=== PATIENT | male | born 1940 | race Caucasian/White ===

== ENCOUNTER → 2019-12-04 11:10 | Outpatient (CLI) | payer MEDICARE, OTHER, SELFPAY ==
--- NOTE | 2019-12-04 | DI.RAD.S_ITS ---
PROCEDURE: XR CHEST 2V INDICATIONS: COUGH TECHNIQUE: 2 views of the chest were acquired. COMPARISON: None. FINDINGS: Surgical changes and devices: None. Lungs and pleura: Lungs are clear. No pleural effusions or pneumothorax. Mediastinum: Mediastinal contours are normal. Heart size is normal. Bones and chest wall: No suspicious bony abnormalities. Soft tissues appear unremarkable. IMPRESSION: No acute disease Dictated by: Luc Villarreal M.D. on 12/04/2019 at 15:29 Approved by: Luc Villarreal M.D. on 12/04/2019 at 15:34
== END ==
PROVIDERS: Family Provider Family Medicine; PCP Family Medicine; Referring Provider Family Medicine; Visit Provider Family Medicine
DX: R05 Cough (principal)
CPT/HCPCS: 71046

== ENCOUNTER → 2020-09-02 12:25 | Outpatient (CLI) | payer MEDICARE, OTHER, SELFPAY ==
--- NOTE | 2020-09-02 12:29 | DI.US.S_ITS ---
PROCEDURE: US RENAL COMPLETE INDICATIONS: CHRONIC KIDNEY DISEASE TECHNIQUE: Real-time scanning was performed of the kidneys and bladder, with image documentation. COMPARISON: Outside Film, CT, CT ABDOMEN PELVIS WITHOUT CONTRAST, 04/08/2019, 17:42. FINDINGS: Kidneys: Kidneys are normal in size. Right kidney measures 11.3 cm long; left kidney measures 12 cm long. Right renal cortical thickness is 2.1 cm; left renal cortical thickness is 1.6 cm. Renal cortical echotexture is normal. No hydronephrosis. No suspicious solid mass lesions. There is a 6 mm nonobstructing right renal stone seen within the mid kidney anteriorly. The previously seen nonobstructing left-sided kidney stones are not seen on this ultrasound. Simple appearing left kidney cysts are seen inferiorly that measure up to 1.3 cm. Bladder: Evaluation of the bladder is limited by low volume. The patient voided just prior to this study. Miscellaneous: No free pelvic fluid. IMPRESSION: Normal kidney size, without hydronephrosis. Apparent nonobstructing right renal stone. However, no stone can be seen at this site on the prior outside noncontrast CT and differential diagnosis includes artifact. Left renal cysts are incidentally noted. Highly limited evaluation of the bladder. Dictated by: Benoit Calderon M.D. on 09/03/2020 at 11:45 Approved by: Benoit Calderon M.D. on 09/03/2020 at 11:47
== END ==
PROVIDERS: Family Provider Family Medicine; PCP Family Medicine; Referring Provider Student in an Organized Health Care Education/Training Program; Visit Provider Student in an Organized Health Care Education/Training Program
DX: N17.9 Acute kidney failure, unspecified (principal); N18.9 Chronic kidney disease, unspecified; N28.1 Cyst of kidney, acquired; Z87.442 Personal history of urinary calculi
CPT/HCPCS: 76770

== ENCOUNTER → 2021-02-15 08:26 | Outpatient (CLI) | payer MEDICARE, OTHER, SELFPAY ==
[2021-02-15 20:00] LABS: Bacteria Urine None Seen; WBC Urine None Seen (0-5/HPF)
[2021-02-15 20:13] LABS: Appearance Urine UA CLEAR; Bilirubin Urine UA NEGATIVE (NEGATIVE); Color Urine UA YELLOW; Glucose Urine UA 2+ g/dL (Negative); Ketones Urine UA NEGATIVE (NEGATIVE); Leukocyte Esterase Urine UA NEGATIVE (NEGATIVE); Nitrite Urine UA NEGATIVE (Negative); Occult Blood Urine UA TRACE-LYSED (Negative); Protein Urine UA NEGATIVE (Negative); Urobilinogen Urine UA 0.2 E.U./dL (0.2); pH Urine UA 5.5 (4.5-8.0)
[2021-02-15 20:33] LABS: Culture Indicated Urine Cult Not Indicated; RBC Urine 0-1/HPF (0-5/HPF)
== END ==
PROVIDERS: Family Provider Family Medicine; PCP Family Medicine; Visit Provider Physician Assistant
DX: R10.31 Right lower quadrant pain (principal); R31.9 Hematuria, unspecified; Z87.442 Personal history of urinary calculi
CPT/HCPCS: 81001

== ENCOUNTER → 2021-02-23 15:43 | Outpatient (CLI) | payer MEDICARE, OTHER, SELFPAY ==
--- NOTE | 2021-02-23 15:46 | DI.RAD.S_ITS ---
PROCEDURE: XR LUMBAR SPINE MIN 4V INDICATIONS: LBP and LE Symptoms TECHNIQUE: 5 views of the lumbar spine were acquired, including bilateral oblique views. COMPARISON: None. FINDINGS: Bones: 5 nonrib-bearing vertebrae are present. There is minimal retrolisthesis of L2 on L3. Degenerative endplate change throughout lumbar spine is seen more prominent at L4-5 and L5-S1 levels. No vertebral body compression fractures. No suspicious bony lesions. Soft tissues: Overlying bowel gas pattern is normal. No suspicious soft tissue calcifications. Oblique images: No pars defects. IMPRESSION: Minimal retrolisthesis of L2 on L3. No compression fracture. Degenerative disc disease throughout lumbar spine. No gross pars defect. Dictated by: Agustin Peng M.D. on 02/23/2021 at 16:30 Approved by: Agustin Peng M.D. on 02/23/2021 at 16:31
== END ==
PROVIDERS: Family Provider Family Medicine; PCP Physical Therapist; Referring Provider Physical Medicine & Rehabilitation; Visit Provider Physical Medicine & Rehabilitation
DX: M51.16 Intervertebral disc disorders with radiculopathy, lumbar region (principal); M51.17 Intervertebral disc disorders with radiculopathy, lumbosacral region
CPT/HCPCS: 72110

== ENCOUNTER → 2021-03-10 11:12 | Outpatient (CLI) | payer MEDICARE, OTHER, SELFPAY ==
[2021-03-10 19:59] LABS: Hematocrit 35.4 % (41-53); Hemoglobin 11.9 g/dL (13.5-17.5)
[2021-03-10 20:03] LABS: BUN Creatinine Ratio 29.9 (6-22); Blood Urea Nitrogen 38 mg/dL (9-20); Calcium 9.1 mg/dL (8.4-10.2); Carbon Dioxide 22 mmol/L (22-32); Chloride 102 mmol/L (98-107); Estimated Glomerular Filt Rate 54.8 mL/min (>60); Glucose 161 mg/dL (80-110); HEMOLYSIS < 15 (0-50); Potassium 4.5 mmol/L (3.4-5.1); Sodium 136 mmol/L (137-145)
[2021-03-10 20:14] LABS: Creatinine Urine Random 126.6 mg/dL; Protein (Total) Urine Random 12 mg/dL (0-12); Protein Creatinine Ratio Urine 0.09 GRAM/24H
[2021-03-12 06:29] LABS: Parathyroid Hormone Int 82 pg/mL (15-65)
== END ==
PROVIDERS: Family Provider Family Medicine; PCP Physical Therapist; Visit Provider Student in an Organized Health Care Education/Training Program
DX: R80.9 Proteinuria, unspecified (principal)
CPT/HCPCS: 80048; 82570; 83970; 84156; 85014; 85018

== ENCOUNTER → 2021-04-06 12:46 | Outpatient (CLI) | payer MEDICARE, OTHER, SELFPAY ==
--- NOTE | 2021-04-06 12:48 | DI.RAD.S_ITS ---
PROCEDURE: XR KNEE LT 3V INDICATIONS: Gait dysfunction status post left TKA TECHNIQUE: A total of 3 views of the knee were acquired. COMPARISON: None. FINDINGS: Bones: No fractures or dislocations. No suspicious bony lesions. Soft tissues: No joint effusion. No suspicious soft tissue calcifications. IMPRESSION: Normal alignment after left total knee arthroplasty. No evidence of device loosening or disruption, or joint effusion or loose body. Dictated by: Ky Carbajal M.D. on 04/06/2021 at 13:26 Approved by: Ky Carbajal M.D. on 04/06/2021 at 13:27
--- NOTE | 2021-04-06 12:48 | DI.RAD.S_ITS ---
PROCEDURE: XR KNEE RT 3V INDICATIONS: Knee DJD TECHNIQUE: 3 views of the knee were acquired. COMPARISON: None. FINDINGS: Bones: No fractures or dislocations. No suspicious bony lesions. There is joint space narrowing at the lateral compartment with mild valgus angulation at the knee joint. Moderate facet osteoarthritis at the lateral facet is seen at the patellofemoral joint. Soft tissues: No joint effusion. No suspicious soft tissue calcifications. IMPRESSION: Lateral compartment moderate knee joint osteoarthritis as indicated by joint space narrowing with secondary valgus angulation at the knee. Additional the degenerative osteoarthritic changes moderate at the lateral facet of the patellofemoral joint. Dictated by: Ky Carbajal M.D. on 04/06/2021 at 13:25 Approved by: Ky Carbajal M.D. on 04/06/2021 at 13:26
--- NOTE | 2021-04-06 13:27 | DI.US.S_ITS ---
PROCEDURE: US PERIPH VENOUS LOW EXTREM BI INDICATIONS: Lower extremity edema history of DVT TECHNIQUE: Real-time imaging, as well as color and pulse Doppler interrogation, were performed of the deep veins of both legs from the inguinal ligament to the popliteal fossa. COMPARISON: None. FINDINGS: Right: The common femoral, femoral and popliteal veins are normally compressible, and free of intraluminal thrombus. Color and pulse Doppler demonstrate normal phasic intravascular flow. There is normal augmentation response to distal compression maneuver. Left: The common femoral, femoral and popliteal veins are normally compressible, and free of intraluminal thrombus. Color and pulse Doppler demonstrate normal phasic intravascular flow. There is normal augmentation response to distal compression maneuver. IMPRESSION: No DVT found bilaterally. Dictated by: Ky Carbajal M.D. on 04/06/2021 at 15:16 Approved by: Ky Carbajal M.D. on 04/06/2021 at 15:16
== END ==
PROVIDERS: Family Provider Family Medicine; PCP Family Medicine; Referring Provider Physical Medicine & Rehabilitation; Visit Provider Physical Medicine & Rehabilitation
DX: M17.11 Unilateral primary osteoarthritis, right knee (principal); R26.9 Unspecified abnormalities of gait and mobility; R60.0 Localized edema; Z86.718 Personal history of other venous thrombosis and embolism; Z96.652 Presence of left artificial knee joint; M53.3 Sacrococcygeal disorders, not elsewhere classified; Z68.30 Body mass index [BMI] 30.0-30.9, adult
CPT/HCPCS: 73562; 93970; 99215

== ENCOUNTER → 2021-04-14 12:30 | Outpatient (CLI) | payer MEDICARE, OTHER, SELFPAY ==
--- NOTE | 2021-04-14 12:32 | DI.MRI.S_ITS ---
PROCEDURE: MR LUMBAR SPINE WO CON INDICATIONS: Lumbar radiculopathy TECHNIQUE: Noncontrast sagittal T1 spin echo and T2 fast echo, sagittal STIR, axial T1 and T2 fast spin echo through the lumbar spine. In cases with scoliosis, additional coronal T2 fast spin echo may be performed. COMPARISON: [facility], CR, XR LUMBAR SPINE MIN 4V, 02/23/2021, 15:49. [facility], MR, L-SPINE WITHOUT CONTRAST, 09/30/2012, 13:43. FINDINGS: Image quality: Excellent. Alignment and Curvature: There is mild, grade 1 retrolisthesis of L1 on L2, L2 on L3, and L3 on L4. Bone Marrow: Marrow is of normal overall signal. No acute vertebral body compression fractures. There is mild reactive signal within the endplates adjacent to the T12-L1, L1-L2, L2-L3, L3-L4, L4-L5, and L5-S1 intervertebral discs. Spinal Cord: Conus medullaris terminates at the mid L2 level. Visualized cord demonstrates normal signal and size. Paraspinous Soft Tissues: No paravertebral masses. T12-L1: Normal appearance. L1-L2: Mild disc desiccation. Mild diffuse disc bulge. Mild facet and ligamentum flavum hypertrophy. Mild canal stenosis. Mild bilateral foraminal stenosis. L2-L3: Moderate disc height loss and desiccation. Mild diffuse disc bulge with superimposed right posterolateral and paracentral protrusion. Mild facet and ligamentum flavum hypertrophy. Increased, moderate canal stenosis. Increased, mild to moderate right foraminal stenosis. No change in mild left foraminal stenosis. L3-L4: Moderate disc height loss and desiccation. Mild diffuse disc bulge with superimposed left far lateral protrusion. Mild facet and ligamentum flavum hypertrophy. Increased, moderate to severe canal stenosis. Increased, moderate to severe left and moderate right foraminal stenosis. New left L3 nerve root compression L4-L5: Moderate disc height loss and desiccation. Mild diffuse disc bulge. Mild facet and ligamentum flavum hypertrophy. Mild epidural lipomatosis. Mild canal stenosis. Increased, moderate left and mild right foraminal stenosis. L5-S1: Moderate disc height loss and desiccation. Mild diffuse disc bulge with superimposed right posterolateral and far lateral protrusion. Mild bilateral facet hypertrophy. Mild canal stenosis. Moderate left and moderate to severe right foraminal stenosis, increased from the prior examination. New mild right L5 nerve root compression. IMPRESSION: 1. Multilevel degenerative disc and facet disease, as well as ligamentum flavum hypertrophy and epidural lipomatosis. 2. Multilevel canal stenoses, worst at L3-L4 where there is increased, moderate to severe canal stenosis. Increased, moderate canal stenosis at L2-L3. 3. Multilevel foraminal stenoses, worst at L3-L4 and L5-S1 where there is associated intraforaminal nerve root compression. Recommend correlation with clinical symptoms to ascertain relevance of these findings. Dictated by: Marlo Barnes M.D. on 04/14/2021 at 14:46 Approved by: Marlo Barnes M.D. on 04/14/2021 at 14:50
== END ==
PROVIDERS: Family Provider Family Medicine; PCP Family Medicine; Referring Provider Physical Medicine & Rehabilitation; Visit Provider Physical Medicine & Rehabilitation
DX: M51.16 Intervertebral disc disorders with radiculopathy, lumbar region (principal); M51.17 Intervertebral disc disorders with radiculopathy, lumbosacral region; M48.061 Spinal stenosis, lumbar region without neurogenic claudication; M48.07 Spinal stenosis, lumbosacral region; E88.2 Lipomatosis, not elsewhere classified
CPT/HCPCS: 72148

== ENCOUNTER → 2021-06-07 11:13 | Outpatient (CLI) | payer MEDICARE, OTHER, SELFPAY ==
[2021-06-07 20:20] LABS: COVID19 - ORCAS (NP or Nasal) Negative (Negative)
== END ==
PROVIDERS: Family Provider Family Medicine; PCP Family Medicine; Visit Provider Physician Assistant
DX: Z01.812 Encounter for preprocedural laboratory examination (principal); Z20.822 Contact with and (suspected) exposure to COVID-19
CPT/HCPCS: C9803; U0003

== ENCOUNTER → 2021-06-09 13:40 | Outpatient (CLI) | payer MEDICARE, OTHER, SELFPAY ==
[2021-06-09] VITALS (9 sets, daily range): BP systolic 116–151; BP diastolic 53–67; PULSE 15–69; RESP 16–99; TEMP 36.4; O2SAT 98–100
--- NOTE | 2021-06-09 | DI.RAD.S_ITS ---
PROCEDURE: PAIN SI JOINT INJECTION INDICATIONS: right SI joint COMPARISON: [facility], XA, PAIN L/S TRANSFORAMINAL INJECT, 06/09/2021, 14:50. FINDINGS: Fluoroscopic spot filming was performed to verify placement of spinal needles at the left L5 level, as labeled on the films. Appropriate location of the needle tip was confirmed by injection of iodinated contrast. Please note that fluoroscopic images of the sacroiliac joints are included in the lumbar spine injection procedure performed at the same time (accession number [id number]). IMPRESSION: Included images show appropriate positioning of the spinal needle at the left L5 level. Images from sacroiliac joint injection are included on accession number [id number]. Dictated by: Jun Webster M.D. on 06/09/2021 at 16:41 Approved by: Jun Webster M.D. on 06/09/2021 at 16:52
[2021-06-09] MEDS: MIDAZOLAM 5 MG/5 ML VIAL IV (14:44)
[2021-06-09] MEDS: IOPAMIDOL 15 ML VIAL 3 ML INJ (14:51)
[2021-06-09] MEDS: BUPIVACAINE 0.25% (PF) VIAL 2 ML INJ (14:51)
[2021-06-09] MEDS: DEXAMETHASONE 10 MG/ML VIAL 20 MG INJ (14:51)
[2021-06-09] MEDS: BETAMETHASONE 30 MG/5 ML MDV 6 MG INJ (14:52)
--- NOTE | 2021-06-09 15:08 | P.PCN_ITS ---
Date/Time/Diagnoses Date of procedure: 06/09/21 Time of procedure: 15:08 Pre-procedure diagnosis: FORAMINAL STENOSIS WITH LE SYMPTOMS Post-procedure diagnosis: same Procedure Notes Procedure: 1. FLUOROSCOPICALLY GUIDED CONTRAST CONTROLLED TRANSFORAMINAL EPIDURAL STEROID INJECTION - RIGHT L5/S1 TFESI Indications: Ollie is referred by Dr. Chin for treatment of Foraminal Stenosis with Right LE Symptoms Physician: Ollie Minaya Total Fluoroscopy time (seconds): 13 Total sedation minutes: 14 Complications: none Procedure in detail & Post-procedure care: FINDINGS Foraminal Nerve Root Compression secondary to disc disease and facet hypertrophy DESCRIPTION OF PROCEDURE Following review of allergy and review of potential side effects and complications, including, but not necessarily limited to, infection, allergic reaction, local tissue breakdown, stroke, temporary or permanent nerve injury, paralysis, and possible , the patient indicated that the patient understood and agreed to proceed. An informed consent document was signed by the patient, witnessed by a nurse, and placed in the patient's chart. Additionally, other treatment options including medications, modalities, and physical therapy were reviewed with the patient. After review of previous anaesthesic history and IV conscious sedation the patient was deemed safe to proceed with today?s procedure with IV conscious sedation as ASA class II designation. Safety time-out was performed to confirm patient ID, procedure to be performed and site of procedure. IV sedation was accomplished with a combination of 2mg of Versed was administered by the RN after DO order, titrated to patient comfort during the course of the procedure while the patient remained responsive to all verbal commands In the prone position following sterile prep and drape of the lumbar region, the right L5/S1 posterior neuroforamen was identified fluoroscopically. The skin was anesthetized via a 25-gauge 1.5-inch needle with 1% lidocaine solution. At this point, a 25-gauge 3.5-inch spinal needle was atraumatically introduced and advanced under fluoroscopic guidance through the posterior right L5/S1 neuroforamen to approximately the anterior aspect of the canal. Depth was confirmed on lateral view. Following negative aspiration, injection of approximately 1.5cc of Isovue 200 under live fluoroscopy in the AP view confirmed excellent flow along the nerve root, into the epidural space without vascular or intrathecal uptake observed Radiological data, including multiple fluoroscopic views of the lumbosacral spine, reveal a spinal needle at the right L5/S1 posterior neuroforamen. Subsequent views show flow of contrast material flowing superiorly and inferiorly along the nerve root confirming epidural flow. Subsequently, a test dose of 1.5 cc of 1% lidocaine solution was administered and patient was observed for two minutes for signs or symptoms of complications, including abdominal pain, shortness of breath, bilateral upper or lower extremity weakness, nausea and vomiting, prior to steroid injection. At this point, a total of 3cc or 20mg of dexamethasone and 6mg of betamethasone was injected without incident. The procedure tolerated the procedure well without signs or symptoms of complications prior to transfer to the recovery area continued monitoring without incident. The patient was then transferred to the recovery area where t hey were observed for an appropriate time after the injection. The patient reported a VAS score of 7 prior to the procedure and a post- procedure VAS of 0. POST OP INSTRUCTIONS The patient was provided a Pain Log to continue to record their response to the target-specific procedure prior to follow-up visit with their referring physician. Additionally, specific post-injection care instructions and a contact number to our office were provided if concerns arise regarding possible complications associated with the procedure are suspected.
--- NOTE | 2021-06-09 15:09 | PM.PROC.IR.1 ---
Date/Time/Diagnoses Date of procedure: 06/09/21 Time of procedure: 15:09 Pre-procedure diagnosis: Sacroiliac joint pain/DJD Post-procedure diagnosis: same Procedure Notes Procedure: Fluoroscopically guided contrast controlled right sacroiliac joint injection Indications: Ollie is referred by Dr. Chin for treatment of right sacroiliac joint DJD Physician: Ollie Minaya Total Fluoroscopy time (seconds): 14 Total sedation minutes: 13 Complications: none Procedure in detail & Post-procedure care: DESCRIPTION OF PROCEDURE Fluoroscopically guided, contrast controlled right sacroiliac joint injection Following review of allergies and review of potential side effects and complications, including, but not necessarily limited to, infection, allergic reaction, local tissue breakdown, temporary as well as permanent nerve injury, paralysis, stroke and possible , the patient indicated that they understood and agreed to proceed. An informed consent was signed by the patient, witnessed by a nurse, and placed in the patient's chart. Additionally, other treatment options including modalities, medications, and physical therapy were reviewed with the patient. After review of previous anaesthesic history and IV conscious sedation the patient was deemed safe to proceed with today?s procedure with IV conscious sedation as ASA class II designation. Safety time-out was performed to confirm patient ID, procedure to be performed and site of procedure. IV sedation was accomplished with a combination of 2mg of Versed was administered by the RN after DO order, titrated to patient comfort during the course of the procedure while the patient remained responsive to all verbal commands In the prone position following sterile prep and drape of the pelvic region, the hyper lucency on in the inferior aspect of the sacroiliac joint was identified fluoroscopically the skin was anesthetized be a 25 gauge 1 eventual with approximately 2 cc of 1% lidocaine solution. At this point, a 22 gauge 3 in spinal needle was atraumatically introduced and advanced under fluoroscopic guidance into the inferior aspect of the right sacroiliac joint. Following negative aspiration, approximately 0.3cc of Isovue-300 was injected confirming intra-articular placement without vascular uptake. Radiographic data, including multiple fluoroscopic views of the pelvis, reveals a spinal needle in the sacroiliac joint hyper lucent zone. Subsequent view show flow contrast tear superiorly and inferiorly within the joint capsule without vascular intrathecal uptake. At this point a total of 1 of 0.5% Marcaine was combined with 1cc of 6 mg of betamethasone was injected without incident. The procedure tolerated the procedure well without signs or symptoms of complications prior to transfer to the recovery area continued monitoring without incident. The patient was then transferred to the recovery area with a bur observed for an appropriate time after the injection. The patient reverted a vas score of 7 prior to the procedure and post-procedure vas of 1. POSTOP INSTRUCTIONS The patient was provided with a pain like to continue to record the patient's response to the target specific procedure prior to the patient's follow-up visit with the referring physician. Additionally, specific post injection care instructions and a contact number to our office were provided if concerns arise regarding the possible complications associated with procedure are suspected.
--- NOTE | 2021-06-09 15:13 | DI.RAD.S_ITS ---
PROCEDURE: PAIN SI JOINT INJECTION INDICATIONS: Right SI joint injection COMPARISON: [facility], , PAIN SI JOINT INJECTION, 06/09/2021, 14:50. FINDINGS: Fluoroscopic spot filming was performed to verify placement of spinal needles at the inferior margin of the right sacroiliac joint level(s), as labeled on the films. Appropriate location(s) of the needle tip(s) was confirmed by injection of iodinated contrast. IMPRESSION: Access needle at the right SI joint. Dictated by: Talia Bolden MD, PhD on 06/09/2021 at 17:04 Approved by: Talia Bolden MD, PhD on 06/09/2021 at 17:07
== END ==
PROVIDERS: Family Provider Family Medicine; PCP Family Medicine; Referring Provider Family Medicine; Visit Provider Physical Medicine & Rehabilitation
DX: M53.3 Sacrococcygeal disorders, not elsewhere classified; M51.17 Intervertebral disc disorders with radiculopathy, lumbosacral region; M48.07 Spinal stenosis, lumbosacral region; M46.1 Sacroiliitis, not elsewhere classified
CPT/HCPCS: 27096; 64483; 99152; J0702; J1100; J2250; J3010

== ENCOUNTER → 2021-06-15 13:45 | Outpatient (CLI) | payer MEDICARE, OTHER, SELFPAY ==
[2021-06-15 20:01] LABS: Add Manual Diff / Slide Review NO; Basophils Absolute Auto 0 /uL (0-100); Basophils Percent Auto 0.2 % (0-2); Eosinophils Absolute Auto 200 /uL (0-450); Eosinophils Percent Auto 2.4 % (2-4); Hematocrit 34.9 % (41-53); Hemoglobin 11.9 g/dL (13.5-17.5); Lymphocytes Absolute Auto 2300 /uL (1100-4500); Mean Corpuscular HGB Conc 34.1 % (30-36); Mean Corpuscular Hemoglobin 32.2 PG (26-34); Mean Corpuscular Volume 94.5 fL (80-100); Monocytes Absolute Auto 700 /uL (0-900); Monocytes Percent Auto 7.1 % (3-14); Neutrophils Absolute Auto 7100 /uL (1500-7000); Neutrophils Percent Auto 68.3 % (50-75); Platelet Count 192 X10^3/uL (150-400); Red Blood Cell Count 3.69 X10^6/uL (4.5-5.9); Red Cell Distribution Width 14.3 % (11.6-14.8); White Blood Cell Count 10.4 X10^3/uL (4.5-11.0)
== END ==
PROVIDERS: Family Provider Family Medicine; PCP Family Medicine; Visit Provider Family Medicine
DX: D64.9 Anemia, unspecified (principal)
CPT/HCPCS: 85025

== ENCOUNTER → 2021-10-03 10:39 | Outpatient (CLI) | payer MEDICARE, OTHER, SELFPAY ==
[2021-10-03 19:30] LABS: Alanine Aminotransferase 30 IU/L (<50); Albumin 3.7 g/dL (3.5-5.0); Albumin Globulin Ratio 1.2 (1.0-2.8); Alkaline Phosphatase 85 U/L (38-126); Aspartate Aminotransferase 36 IU/L (17-59); BUN Creatinine Ratio 22.1 (6-22); Bilirubin Total 1.1 mg/dL (0.2-1.3); Blood Urea Nitrogen 25 mg/dL (9-20); Calcium 9.2 mg/dL (8.4-10.2); Carbon Dioxide 28 mmol/L (22-32); Chloride 103 mmol/L (98-107); Cholesterol 93 mg/dL (140-199); Estimated Glomerular Filt Rate > 60.0 mL/min (>60); Glucose 142 mg/dL (80-110); HDL Cholesterol 39 mg/dL (40-60); HEMOLYSIS < 15 (0-50); LDL Cholesterol Calculated 32 mg/dL (<100); Potassium 4.8 mmol/L (3.4-5.1); Sodium 136 mmol/L (137-145); Total Protein 6.7 g/dL (6.3-8.2); Triglycerides 112 mg/dL (35-150)
[2021-10-03 19:43] LABS: Hemoglobin A1C% w Est Avg Glu 5.9 % (4.0-6.0)
== END ==
PROVIDERS: Family Provider Family Medicine; PCP Family Medicine; Visit Provider Family Medicine
DX: E11.65 Type 2 diabetes mellitus with hyperglycemia (principal)
CPT/HCPCS: 80053; 80061; 83036

== ENCOUNTER → 2021-10-10 13:36 | Outpatient (CLI) | payer MEDICARE, OTHER, SELFPAY ==
[2021-10-10 19:51] LABS: Prostate Specific Antigen 1.78 ng/mL (0.10-4.00)
[2021-10-10 19:52] LABS: Hemoglobin A1C% w Est Avg Glu 5.9 % (4.0-6.0)
== END ==
PROVIDERS: Family Provider Family Medicine; PCP Family Medicine; Visit Provider Physician Assistant
DX: R31.29 Other microscopic hematuria (principal); E11.65 Type 2 diabetes mellitus with hyperglycemia; Z12.5 Encounter for screening for malignant neoplasm of prostate
CPT/HCPCS: 83036; 84153; G0103

== ENCOUNTER → 2021-12-15 12:35 | Outpatient (CLI) | payer MEDICARE, OTHER, SELFPAY ==
[2021-12-15 19:20] LABS: Add Manual Diff / Slide Review NO; Basophils Absolute Auto 0 /uL (0-100); Basophils Percent Auto 0.6 % (0-2); Eosinophils Absolute Auto 200 /uL (0-450); Eosinophils Percent Auto 2.9 % (2-4); Hematocrit 36.5 % (41-53); Hemoglobin 12.1 g/dL (13.5-17.5); Lymphocytes Absolute Auto 1300 /uL (1100-4500); Lymphocytes Percent Auto 20.3 % (25-40); Mean Corpuscular HGB Conc 33.1 % (30-36); Mean Corpuscular Hemoglobin 31.3 PG (26-34); Mean Corpuscular Volume 94.4 fL (80-100); Monocytes Absolute Auto 600 /uL (0-900); Monocytes Percent Auto 8.6 % (3-14); Neutrophils Absolute Auto 4500 /uL (1500-7000); Neutrophils Percent Auto 67.6 % (50-75); Platelet Count 186 X10^3/uL (150-400); Red Blood Cell Count 3.87 X10^6/uL (4.5-5.9); Red Cell Distribution Width 13.7 % (11.6-14.8); White Blood Cell Count 6.6 X10^3/uL (4.5-11.0)
[2021-12-15 19:48] LABS: Lactate (Lactic Acid) 1.9 mmol/L (0.7-2.1)
[2021-12-15 19:52] LABS: Alanine Aminotransferase 36 IU/L (<50); Albumin 4.2 g/dL (3.5-5.0); Albumin Globulin Ratio 1.4 (1.0-2.8); Alkaline Phosphatase 109 U/L (38-126); Aspartate Aminotransferase 38 IU/L (17-59); BUN Creatinine Ratio 25.9 (6-22); Bilirubin Total 0.9 mg/dL (0.2-1.3); Blood Urea Nitrogen 28 mg/dL (9-20); Calcium 9.1 mg/dL (8.4-10.2); Carbon Dioxide 30 mmol/L (22-32); Chloride 104 mmol/L (98-107); Estimated Glomerular Filt Rate > 60.0 mL/min (>60); Globulin 3.1 g/dL (1.7-4.1); Glucose 166 mg/dL (80-110); HEMOLYSIS < 15 (0-50); Potassium 4.4 mmol/L (3.4-5.1); Sodium 141 mmol/L (137-145); Total Protein 7.3 g/dL (6.3-8.2)
[2021-12-15 19:54] LABS: Hemoglobin A1C% w Est Avg Glu 6.5 % (4.0-6.0)
[2021-12-15 20:21] LABS: Prostate Specific Antigen Scrn 1.37 ng/mL (0.1-4.0)
[2021-12-15 20:40] LABS: Vitamin B12 624 pg/mL (239-931)
[2021-12-15 20:59] LABS: Erythrocyte Sedimentation Rate 35 MM/HR (0-15)
== END ==
PROVIDERS: Family Provider Family Medicine; PCP Family Medicine; Visit Provider Physician Assistant
DX: F32.1 Major depressive disorder, single episode, moderate (principal); E11.40 Type 2 diabetes mellitus with diabetic neuropathy, unspecified; Z12.5 Encounter for screening for malignant neoplasm of prostate; D64.9 Anemia, unspecified; E11.9 Type 2 diabetes mellitus without complications; N40.0 Benign prostatic hyperplasia without lower urinary tract symptoms; R15.9 Full incontinence of feces; Z79.899 Other long term (current) drug therapy
CPT/HCPCS: 80053; 82607; 83036; 83605; 85025; 85651; G0103

== ENCOUNTER → 2021-12-30 14:48 | Outpatient (CLI) | payer MEDICARE, OTHER, SELFPAY ==
[2022-01-04 10:51] LABS: Fecal Immunochemical Test Negative (Negative)
== END ==
PROVIDERS: Family Provider Family Medicine; PCP Family Medicine; Visit Provider Physician Assistant
DX: D64.9 Anemia, unspecified (principal); R15.9 Full incontinence of feces; R19.7 Diarrhea, unspecified
CPT/HCPCS: 82274

== ENCOUNTER → 2022-01-03 08:07 | Outpatient (CLI) | payer MEDICARE, OTHER, SELFPAY ==
[2022-01-03 19:39] LABS: COVID19 - ORCAS (NP or Nasal) Negative (Negative)
== END ==
PROVIDERS: Family Provider Family Medicine; PCP Family Medicine; Visit Provider Family Medicine
DX: Z20.822 Contact with and (suspected) exposure to COVID-19 (principal)
CPT/HCPCS: C9803; U0003

== ENCOUNTER 2022-01-05 12:11 | Outpatient (CLI) | payer MEDICARE, OTHER, SELFPAY ==
--- NOTE | 2022-01-05 12:53 | DI.RAD.S_ITS ---
PROCEDURE: PAIN L/SI FACET INJ/BLK 1STL INDICATIONS: Spondylosis COMPARISON: [facility], , PAIN L/S TRANSFORAMINAL INJECT, 06/09/2021, 14:50. FINDINGS: Fluoroscopic spot filming was performed to verify placement of spinal needles at the L4-L5 and L5-S1 levels, as labeled on the films. Appropriate location(s) of the needle tip(s) was confirmed by injection of iodinated contrast. IMPRESSION: Intraprocedural examination within normal limits. Dictated by: Benoit Calderon M.D. on 01/05/2022 at 12:47 Approved by: Benoit Calderon M.D. on 01/05/2022 at 12:47
[2022-01-05 12:55] VITALS: BP 137/63; PULSE 56; RESP 18; TEMP 37; O2SAT 98
[2022-01-05 13:15] VITALS: BP 136/61; PULSE 55; RESP 16; O2SAT 99
[2022-01-05 13:20] VITALS: BP 124/59; PULSE 54; RESP 18; O2SAT 99
[2022-01-05] MEDS: BUPIVACAINE 0.5% (PF) VIAL 30 ML (13:24)
[2022-01-05] MEDS: LIDOCAINE 1% 20 ML (13:25)
[2022-01-05] MEDS: BETAMETHASONE 30 MG/5 ML MDV (13:26)
[2022-01-05] MEDS: IOPAMIDOL 15 ML VIAL INJ (13:26)
[2022-01-05 13:27] VITALS: BP 131/57; PULSE 55; RESP 16; O2SAT 99
--- NOTE | 2022-01-05 13:29 | P.PCN_ITS ---
Date/Time/Diagnoses Date of procedure: 01/05/22 Time of procedure: 13:29 Pre-procedure diagnosis: 1. FACET ARTHROPATHY, 2. AXIAL LBP, 3. MULTILEVEL DDD Post-procedure diagnosis: same Procedure Notes Procedure: 1. FLUOROSCOPICALLY GUIDED CONTRAST CONTROLLED FACET JOINT INJECTIONS RIGHT L4/5, L5/S1 Indications: Ollie is referred by Dr. Chin for treatment of Axial LBP Physician: Ollie Minaya Total Fluoroscopy time (seconds): 6 Total sedation minutes: 0 Complications: none Procedure in detail & Post-procedure care: FINDINGS Multilevel Facet Arthropathy with Clinically significant axial LBP DESCRIPTION OF PROCEDURE Fluoroscopically guided, contrast-controlled right L4/5, L5/S1 facet joint injections. Following review of allergy and review of potential side effects and complications, including, but not necessarily limited to, infection, allergic reaction, local tissue breakdown, stroke, temporary or permanent nerve injury, paralysis, and possible , the patient indicated that the patient understood and agreed to proceed. An informed consent document was signed by the patient, witnessed by a nurse, and placed in the patient's chart. Additionally, other treatment options including medications, modalities, and physical therapy were reviewed with the patient. After review of previous anaesthesic history and IV conscious sedation the patient was deemed safe to proceed with today?s procedure with IV conscious sedation as ASA class II designation. Safety time-out was performed to confirm patient ID, procedure to be performed and site of procedure. IV sedation was deemed unecessary and thus not administered by the RN after DO order, titrated to patient comfort during the course of the procedure while the patient remained responsive to all verbal commands. In the prone position, following sterile prep and drape of the lumbar region, the posterior aspect of the right L4/5, L5/S1 facet joints were identified fluoroscopically. The skin was anesthetized via a 25-gauge 1.5-inch needle with 1% lidocaine solution into the corresponding facet joints. At this point, a 22- gauge 3.5-inch spinal needle was atraumatically introduced and advanced under fluoroscopic guidance into the corresponding facet joints. Following negative aspiration, injections of approximately 0.2-cc of Isovue 200 confirmed interarticular placement without vascular uptake. Radiological data, including multiple fluoroscopic views of the lumbosacral spine, reveal a spinal needle at the right L4/5, L5/S1 facet joints. Subsequent views show flow of contrast material both superiorly and inferiorly within the joint space without vascular or intrathecal uptake. At this point, a total of 0.5cc including a mixture of 0.25cc Marcaine and 0.25cc betamethasone was injected without complication into each of the corresponding facet joints. The procedure tolerated the procedure well without signs or symptoms of complications prior to transfer to the recovery area continued monitoring without incident. The patient was then transferred to the recovery area where they were observed for an appropriate period of time after the injection. The patient reported a VAS score of 7 prior to the procedure and a post-procedure VAS of 0. POST OP INSTRUCTIONS The patient was provided a Pain Log to continue to record their response to the target-specific procedure prior to follow-up visit with their referring physician. Additionally, specific post-injection care instructions and a contact number to our office were provided if concerns arise regarding possible complications associated with the procedure are suspected.
[2022-01-05 13:30] VITALS: BP 99/51; PULSE 55; RESP 14; O2SAT 98
[2022-01-05 13:35] VITALS: BP 126/60; PULSE 57; RESP 16; O2SAT 98
== END 2022-01-05 13:45 | disposition home or self-care (01) ==
LOC: RAD 12:12
PROVIDERS: Family Provider Family Medicine; PCP Family Medicine; Referring Provider Physical Medicine & Rehabilitation; Visit Provider Physical Medicine & Rehabilitation
DX: M47.816 Spondylosis without myelopathy or radiculopathy, lumbar region (principal); M47.817 Spondylosis without myelopathy or radiculopathy, lumbosacral region; M51.36 Other intervertebral disc degeneration, lumbar region; M51.37 Other intervertebral disc degeneration, lumbosacral region
CPT/HCPCS: 64493; 64495; J0702; J2250; J3010

== ENCOUNTER → 2022-02-13 10:18 | Outpatient (CLI) | payer MEDICARE, OTHER, SELFPAY ==
[2022-02-14 16:11] LABS: C difficie Toxins A and B, EIA Negative (Negative)
[2022-02-15 15:40] LABS: Calprotectin, Stool 32 ug/g (0-120)
[2022-02-17 13:10] LABS: Pancreatic Elastase, Fecal 144 (>200)
== END ==
PROVIDERS: Family Provider Family Medicine; PCP Family Medicine; Visit Provider Physician Assistant
DX: R19.7 Diarrhea, unspecified (principal); Z79.01 Long term (current) use of anticoagulants
CPT/HCPCS: 82656; 83993; 87045; 87324; 87899

== ENCOUNTER → 2022-02-21 07:51 | Outpatient (CLI) | payer MEDICARE, OTHER, SELFPAY ==
[2022-02-21 19:56] LABS: COVID19 - ORCAS (NP or Nasal) Negative (Negative)
== END ==
PROVIDERS: Family Provider Family Medicine; PCP Family Medicine; Visit Provider Physician Assistant
DX: Z79.899 Other long term (current) drug therapy (principal)
CPT/HCPCS: C9803; U0003

== ENCOUNTER 2022-02-23 12:20 | Outpatient (CLI) | payer MEDICARE, OTHER, SELFPAY ==
[2022-02-23 12:30] VITALS: BP 131/61; PULSE 57; RESP 20; TEMP 36.4; O2SAT 99
--- NOTE | 2022-02-23 13:00 | DI.RAD.S_ITS ---
PROCEDURE: PAIN L/SI FACET INJ/BLK 1STL INDICATIONS: SPONDYLOSIS COMPARISON: [facility], , PAIN L/SI FACET INJ/BLK 1STL, 01/05/2022, 13:22. FINDINGS: Fluoroscopic spot filming was performed to verify placement of spinal needles on the right at the L4, L5, and S1 levels, as labeled on the films. Appropriate location of the needle tips was confirmed by injection of iodinated contrast. IMPRESSION: Intraprocedural examination demonstrating appropriate positions of the needles. Dictated by: Benoit Calderon M.D. on 02/23/2022 at 13:22 Approved by: Benoit Calderon M.D. on 02/23/2022 at 13:22
[2022-02-23 13:30] VITALS: BP 182/85; PULSE 56; RESP 17; O2SAT 100
[2022-02-23 13:35] VITALS: BP 182/85; PULSE 58; RESP 16; O2SAT 100
[2022-02-23] MEDS: IOPAMIDOL 15 ML VIAL 3 ML INJ (13:35)
[2022-02-23] MEDS: BUPIVACAINE 0.5% (PF) VIAL 5 ML INJ (13:35)
[2022-02-23 13:40] VITALS: BP 180/75; PULSE 55; RESP 20; O2SAT 100
--- NOTE | 2022-02-23 13:45 | P.PCN_ITS ---
Date/Time/Diagnoses Date of procedure: 02/23/22 Time of procedure: 13:45 Pre-procedure diagnosis: 1. FACET ARTHROPATHY Post-procedure diagnosis: same Procedure Notes Procedure: 1. Right L4, L5 and S1 MB BLOCKS LA Indications: Ollie is referred by Dr. Chin for treatment of Right Axial LBP. Physician: Ollie Minaya Total Fluoroscopy time (seconds): 7 Total sedation minutes: 0 Complications: none Procedure in detail & Post-procedure care: DESCRIPTION OF PROCEDURE Fluoroscopically guided, contrast-controlled right L4, L5 and S1 medial branch blocks with 0.5cc of 0.5% Marcaine. Following review of allergy and review of potential side effects and complications, including, but not necessarily limited to, infection, allergic reaction, local tissue breakdown, nerve injury, paralysis, stroke and possible , the patient indicated that the patient understood and agreed to proceed. An informed consent document was signed by the patient, witnessed by a nurse, and placed in the patient's chart. After review of previous anaesthesic history and IV conscious sedation the patient was deemed safe to proceed with today?s procedure with IV conscious sedation as ASA class II designation. Safety time-out was performed to confirm patient ID, procedure to be performed and site of procedure. IV sedation was deemed unnecessary and thus not administered by the RN after DO order, titrated to patient comfort during the course of the procedure while the patient remained responsive to all verbal commands In the prone position, following sterile prep and drape of the lumbar region, the right L4, L5 and S1 anatomical location of the medial branch of the dorsal ramus was identified fluoroscopically. Subsequently an anesthetic skin wheal using 1% lidocaine solution was initiated at each of the anatomical spots. Subsequently then a 22-gauge 3.5-inch spinal needle was atraumatically introduced and advanced under fluoroscopic guidance at each of the corresponding sites at the right L4, L5 and S1 MB. After negative aspiration, 0.2 cc of Isovue 200 was injected, confirming placement without vascular or intrathecal uptake. Subsequently then 0.5 cc of 0.5% Marcaine solution was injected at each of the corresponding sites at the right L4, L5 and S1 medial branch locations. The patient tolerated the procedure well without signs or symptoms of complications. The procedure tolerated the procedure well without signs or symptoms of complications prior to transfer to the recovery area continued monitoring without incident. Post-procedure, the patient was monitored initiating provocative activities to measure the amount of relief from block of the facetogenic pain. The patient reported a VAS of 7 prior to the procedure and a post-procedure VAS of 1. It has been a pleasure to assist in the diagnostic and therapeutic care of your patient. POST OP INSTRUCTIONS The patient was provided with a Pain Log to complete over the next several hours and subsequent days prior to the patient's follow up with the ordering physician. If the patient has federal mediation commissioner relief to the solution applied, then they may be a candidate for medial branch rhizotomy. The patient is aware, was provided, once again, with a Pain Log and will follow up with the referring physician for review and clinical correlation.
[2022-02-23 13:48] VITALS: BP 146/65; PULSE 51; RESP 12; O2SAT 99
[2022-02-23 13:53] VITALS: BP 162/74; PULSE 54; RESP 14; O2SAT 100
== END 2022-02-23 14:02 | disposition home or self-care (01) ==
PROVIDERS: Family Provider Family Medicine; PCP Family Medicine; Referring Provider Physical Medicine & Rehabilitation; Visit Provider Physical Medicine & Rehabilitation
DX: M47.816 Spondylosis without myelopathy or radiculopathy, lumbar region (principal); M47.817 Spondylosis without myelopathy or radiculopathy, lumbosacral region
CPT/HCPCS: 64493; 64494

== ENCOUNTER → 2022-03-02 11:39 | Outpatient (CLI) | payer MEDICARE, OTHER, SELFPAY ==
[2022-03-02 19:01] LABS: BUN Creatinine Ratio 21.4 (6-22); Blood Urea Nitrogen 24 mg/dL (9-20); Estimated Glomerular Filt Rate > 60 mL/min (>60)
== END ==
PROVIDERS: Family Provider Family Medicine; PCP Family Medicine
DX: R19.7 Diarrhea, unspecified (principal)
CPT/HCPCS: 82565; 84520

== ENCOUNTER → 2022-03-06 07:07 | Outpatient (CLI) | payer MEDICARE, OTHER, SELFPAY ==
[2022-03-06 20:57] LABS: COVID19 - ORCAS (NP or Nasal) Negative (Negative)
== END ==
PROVIDERS: Family Provider Family Medicine; PCP Family Medicine; Visit Provider Family Medicine
DX: Z20.822 Contact with and (suspected) exposure to COVID-19 (principal); Z01.812 Encounter for preprocedural laboratory examination
CPT/HCPCS: C9803; U0003

== ENCOUNTER 2022-03-07 10:45 | Outpatient (CLI) | payer MEDICARE, OTHER, SELFPAY ==
[2022-03-07] VITALS (9 sets, daily range): BP systolic 116–152; BP diastolic 54–84; PULSE 54–64; RESP 15–19; O2SAT 95–100
--- NOTE | 2022-03-07 | DI.CT.S_ITS ---
PROCEDURE: CT ABDOMEN PELVIS W CON INDICATIONS: Diarrhea, unspecified TECHNIQUE: After the administration of oral and IV contrast, axial sections were acquired from the lung bases to the pubic symphysis. Coronal and sagittal reformats were performed. For radiation dose reduction, the following was used: automated exposure control, adjustment of mA and/or kV according to patient size. COMPARISON: [facility], MR, L-SPINE WITHOUT CONTRAST, 09/30/2012, 13:43. [facility], MR, MR LUMBAR SPINE WO CON, 04/14/2021, 12:55. [facility], US, US RENAL COMPLETE, 09/02/2020, 12:54. FINDINGS: Image quality: Excellent. Lung bases: Clear lung bases. No hiatal hernia. Heart: Normal size heart. Heavy coronary artery calcification, mitral annular calcification, and aortic valvular calcification. ABDOMEN: Liver: No masses Gallbladder: Normal wall thickness. Biliary ducts: Nondilated. Pancreas: Normal. Spleen: Normal size. Adrenal Glands: No nodules. Kidneys and Ureters: Normal enhancement. No hydronephrosis or hydroureter. No calcifications. Indeterminate corticomedullary partially exophytic anterior lower pole renal cyst measuring 1.5 cm. . Stomach and Bowel: Stomach is within normal limits. 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 Small bowel loops have an otherwise normal appearance. There is normal appendix. Normal quantity of solid stool present in the colon. No pericolonic inflammation or wall thickening. Peritoneum: No abnormal intraperitoneal fluid. No free air. Ventral Wall: No hernia. Abdominal Nodes: No retroperitoneal or mesenteric adenopathy by size criteria. Vessels: Aorta and inferior vena cava are normal in size. Mild abdominal aortic atherosclerotic calcification. PELVIS: Pelvic Organs: Moderately enlarged prostate gland with median lobe hypertrophy. Bladder: No wall thickening. Pelvic Nodes: No enlarged lymph nodes. Miscellaneous: Tiny fat containing right inguinal hernia. Bones: Degenerative disc height loss in the lumbar spine. IMPRESSION: 1. Other than a prominent duodenal diverticulum, small bowel and colon loops appear normal. 2. Prostatomegaly. 3. Indeterminate corticomedullary left lower pole cyst has been stable since 09/30/12 and is benign. Dictated by: Audrey Monroe M.D. on 03/07/2022 at 17:35 Approved by: Audrey Monroe M.D. on 03/07/2022 at 17:52
--- NOTE | 2022-03-07 10:49 | DI.RAD.S_ITS ---
PROCEDURE: PAIN L/S MED/LAT N RFA INDICATIONS: SPONDYLOSIS COMPARISON: [facility], XA, PAIN L/SI FACET INJ/BLK 1STL, 02/23/2022, 13:34. [facility], XA, PAIN L/SI FACET INJ/BLK 1STL, 01/05/2022, 13:22. [facility], XA, PAIN L/S TRANSFORAMINAL INJECT, 06/09/2021, 14:50. FINDINGS: Fluoroscopic spot filming was performed to verify placement of spinal needles on on the right at the L4, L5, and S1 levels, as labeled on the films. IMPRESSION: Images during rhizotomy within normal limits. Dictated by: Benoit Calderon M.D. on 03/07/2022 at 11:48 Approved by: Benoit Calderon M.D. on 03/07/2022 at 11:48
[2022-03-07] MEDS: MIDAZOLAM 2 MG/2 ML VIAL IV (11:55)
[2022-03-07] MEDS: BUPIVACAINE 0.5% (PF) VIAL 5 ML INJ (11:58)
[2022-03-07] MEDS: LIDOCAINE 1% 20 ML (11:58)
--- NOTE | 2022-03-07 12:17 | P.PCN_ITS ---
Date/Time/Diagnoses Date of procedure: 03/07/22 Time of procedure: 12:17 Pre-procedure diagnosis: 1. RECALCITRANT FACET ARTHROPATHY Post-procedure diagnosis: same Procedure Notes Procedure: 1. RIGHT L4 AND L5 MEDIAL BRANCH RADIOFREQUENCY NEUROTOMY AND RIGHT S1 DORSAL RAMUS BRANCH RADIOFREQUENCY NEUROTOMY Indications: Demetra is referred by Dr. Chin for treatment of facet arthropathy. Physician: Ollie Minaya Total Fluoroscopy time (seconds): 10 Total sedation minutes: 17 Complications: none Procedure in detail & Post-procedure care: DESCRIPTION OF PROCEDURE Right L4 and L5 medial branch radiofrequency neurotomy and right S1 dorsal ramus branch radiofrequency neurotomy under fluoroscopy with conscious sedation. The patient is well known to this clinic having undergone previous facet injections with good but temporary relief. The patient has experienced appropriate, concordant relief with previous facet and median branch blocks but the patient's pain has been recalcitrant to further conservative measures. Therefore, based upon the patient's relief and persistent symptoms, the patient is considered an appropriate candidate for facet rhizotomy. All of the patient's questions regarding the risks versus benefits of the procedure, including, but not limited to, bleeding, infection, temporary as well as lasting nerve injury, paralysis, stroke, and , as well treatment alternatives were answered to satisfaction. After review of previous anaesthesic history and IV conscious sedation the patient was deemed safe to proceed with today?s procedure with IV conscious sedation as ASA class II designation. Safety time-out was performed to confirm patient ID, procedure to be performed and site of procedure. IV sedation was accomplished with a combination of 2mg of Versed was administered by the RN after DO order, titrated to patient comfort during the course of the procedure while the patient remained responsive to all verbal commands. After obtaining informed consent, denial of pertinent drug allergies, as well as being made aware of the potential risks of bleeding, infection, spinal cord trauma, paralysis, temporary and permanent nerve damage, seizure, stroke, and possible , the patient was brought to the fluoroscopy suite and positioned prone on the fluoroscopy table. The lumbar region was prepped with Betadine and covered with a fenestrated drape in the usual sterile fashion. Appropriate monitors applied including pulse oximeter, pulse, and blood pressure for regular monitoring throughout the procedure. After local infiltration using 1% lidocaine, under fluoroscopic guidance, a 10- cm RF insulated needle with a 10-mm active tip was positioned parallel to the junction of the right sacral ala and the superior articulating process where the S1 dorsal ramus resides. Needle placement was confirmed with sensory stimulation at 50 Hz, with motor stimulation of .5v on the right which produced local stimulation without radicular component. The stimulation was then increased to 2v with, once again, only local multifidus stimulation without radicular component. This was then followed by two discreet lesions performed at 80 degrees Celsius for 90 seconds each. The needle was then removed and the identical procedure was performed along the length of the right L5 medial branch with motor stimulation at .7v on the right. The identical procedure was once again performed along the length of the right L4 medial branch with motor stimulation of .5v on the right. The patient tolerated the procedure well without signs or symptoms of complications prior to transfer to the recovery area continued monitoring without incident. The patient was then transferred to the recovery area where they were observed for an appropriate period of time after the injection. The patient was then transferred to the recovery area where they were observed for an appropriate period of time after the injection. The patient reported a VAS score of 8 prior to the procedure and a post- procedure VAS of 1. POST OP INSTRUCTIONS The patient was provided a Pain Log to continue to record the patient's response to the target-specific procedure prior to the patient's follow-up visit with the referring physician. Additionally, specific post-injection care instructions and a contact number to our office were provided if concerns arise regarding possible complications associated with the procedure are suspected.
== END 2022-03-07 12:36 | disposition home or self-care (01) ==
LOC: RAD 10:46
PROVIDERS: Family Provider Family Medicine; PCP Family Medicine; Referring Provider Physician Assistant; Visit Provider Physician Assistant
DX: M47.816 Spondylosis without myelopathy or radiculopathy, lumbar region (principal); M47.817 Spondylosis without myelopathy or radiculopathy, lumbosacral region; R19.7 Diarrhea, unspecified; K57.10 Diverticulosis of small intestine without perforation or abscess without bleeding; I70.0 Atherosclerosis of aorta; N40.0 Benign prostatic hyperplasia without lower urinary tract symptoms; N28.1 Cyst of kidney, acquired
CPT/HCPCS: 64635; 64636; 74177; 99152; J2250; Q9967

== ENCOUNTER → 2022-03-13 13:07 | Outpatient (CLI) | payer MEDICARE, OTHER, SELFPAY ==
[2022-03-13 19:25] LABS: Alanine Aminotransferase 21 IU/L (<50); Albumin 4.3 g/dL (3.5-5.0); Albumin Globulin Ratio 1.5 (1.0-2.8); Alkaline Phosphatase 94 U/L (38-126); Aspartate Aminotransferase 25 IU/L (17-59); BUN Creatinine Ratio 26.9 (6-22); Bilirubin Total 1.2 mg/dL (0.2-1.3); Blood Urea Nitrogen 28 mg/dL (9-20); Calcium 9.4 mg/dL (8.4-10.2); Carbon Dioxide 25 mmol/L (22-32); Chloride 104 mmol/L (98-107); Estimated Glomerular Filt Rate > 60 mL/min (>60); Globulin 2.9 g/dL (1.7-4.1); Glucose 123 mg/dL (80-110); HEMOLYSIS < 15 (0-50); Potassium 4.5 mmol/L (3.4-5.1); Sodium 139 mmol/L (137-145); Total Protein 7.2 g/dL (6.3-8.2)
== END ==
PROVIDERS: Family Provider Family Medicine; PCP Family Medicine; Visit Provider Physician Assistant
DX: Z79.899 Other long term (current) drug therapy (principal)
CPT/HCPCS: 80053

== ENCOUNTER → 2022-06-05 14:41 | Outpatient (CLI) | payer MEDICARE, OTHER, SELFPAY ==
[2022-06-05 21:03] LABS: Hematocrit 36.7 % (41-53); Hemoglobin 12.3 g/dL (13.5-17.5)
[2022-06-05 21:22] LABS: BUN Creatinine Ratio 27.3 (6-22); Blood Urea Nitrogen 30 mg/dL (9-20); Calcium 8.8 mg/dL (8.4-10.2); Carbon Dioxide 24 mmol/L (22-32); Chloride 105 mmol/L (98-107); Estimated Glomerular Filt Rate > 60 mL/min (>60); Glucose 104 mg/dL (80-110); HEMOLYSIS < 15 (0-50); Potassium 4.9 mmol/L (3.4-5.1); Sodium 140 mmol/L (137-145)
[2022-06-05 21:26] LABS: Creatinine Urine Random 248.1 mg/dL; Protein (Total) Urine Random 11 mg/dL (0-12); Protein Creatinine Ratio Urine 0.04 GRAM/24H
[2022-06-07 07:10] LABS: Parathyroid Hormone Int 70 pg/mL (15-65)
== END ==
PROVIDERS: Family Provider Family Medicine; PCP Family Medicine; Visit Provider Student in an Organized Health Care Education/Training Program
DX: D64.9 Anemia, unspecified (principal); N05.9 Unspecified nephritic syndrome with unspecified morphologic changes; N25.81 Secondary hyperparathyroidism of renal origin; R80.9 Proteinuria, unspecified
CPT/HCPCS: 80048; 82570; 83970; 84156; 85014; 85018

== ENCOUNTER 2022-06-13 14:11 | Emergency (ER) | payer MEDICARE, OTHER, SELFPAY ==
[2022-06-13] VITALS (29 sets, daily range): BP systolic 92–189; BP diastolic 44–116; PULSE 57–97; RESP 12–25; TEMP 37.6–38.6; O2SAT 92–99; BMI 30.2
--- NOTE | 2022-06-13 14:26 | DI.RAD.S_ITS ---
PROCEDURE: XR CHEST 1V INDICATIONS: chest pain TECHNIQUE: One view of the chest was acquired. COMPARISON: [facility], , XR CHEST 2V, 12/04/2019, 11:25. FINDINGS: Surgical changes and devices: None. Lungs and pleura: Lungs are clear. No pleural effusions or pneumothorax. Mediastinum: Mediastinal contours appear normal. Heart size is normal. Bones and chest wall: No suspicious bony lesions. Overlying soft tissues appear unremarkable. IMPRESSION: No acute cardiopulmonary findings Approved by: Patrick Hammond M.D. on 06/13/2022 at 14:28
[2022-06-13 14:48] LABS: Add Manual Diff / Slide Review NO; Basophils Absolute Auto 0 /uL (0-100); Basophils Percent Auto 0.2 % (0-2); Eosinophils Absolute Auto 0 /uL (0-450); Eosinophils Percent Auto 0.3 % (2-4); Hematocrit 34.9 % (41-53); Hemoglobin 12.1 g/dL (13.5-17.5); Lymphocytes Absolute Auto 600 /uL (1100-4500); Lymphocytes Percent Auto 3.9 % (25-40); Mean Corpuscular HGB Conc 34.6 % (30-36); Mean Corpuscular Hemoglobin 31.7 PG (26-34); Mean Corpuscular Volume 91.5 fL (80-100); Monocytes Absolute Auto 700 /uL (0-900); Monocytes Percent Auto 4.7 % (3-14); Neutrophils Absolute Auto 14000 /uL (1500-7000); Neutrophils Percent Auto 90.9 % (50-75); Platelet Count 153 X10^3/uL (150-400); Red Blood Cell Count 3.82 X10^6/uL (4.5-5.9); Red Cell Distribution Width 13.8 % (11.6-14.8); White Blood Cell Count 15.4 X10^3/uL (4.5-11.0)
[2022-06-13 14:56] LABS: INR 1.4 (0.9-1.3); Prothrombin Time 16.4 SECONDS (10.1-12.7)
[2022-06-13 14:59] LABS: PTT Partial Thromboplastin Tim 36 SECONDS (26-36)
[2022-06-13 15:00] LABS: Alanine Aminotransferase 21 IU/L (<50); Albumin 4.3 g/dL (3.5-5.0); Albumin Globulin Ratio 1.3 (1.0-2.8); Alkaline Phosphatase 100 U/L (38-126); Aspartate Aminotransferase 26 IU/L (17-59); BUN Creatinine Ratio 30.3 (6-22); Bilirubin Total 1.4 mg/dL (0.2-1.3); Blood Urea Nitrogen 36 mg/dL (9-20); Carbon Dioxide 28 mmol/L (22-32); Chloride 105 mmol/L (98-107); Creatine Kinase 230 U/L (55-170); Estimated Glomerular Filt Rate > 60 mL/min (>60); Globulin 3.3 g/dL (1.7-4.1); Glucose 98 mg/dL (80-110); HEMOLYSIS < 15 (0-50); Lipase 158 U/L (23-300); Magnesium 1.5 mg/dL (1.6-2.3); Potassium 4.7 mmol/L (3.4-5.1); Sodium 142 mmol/L (137-145); Total Protein 7.6 g/dL (6.3-8.2)
[2022-06-13 15:01] LABS: COVID19 -Nasal RAPID Negative (Negative)
[2022-06-13 15:07] LABS: Bacteria Urine None Seen; Culture Indicated Urine Cult Not Indicated; RBC Urine 0-1/HPF (0-5/HPF); Squamous Epithelial Cell Urine None Seen (0-5/HPF); WBC Urine 0-1/HPF (0-5/HPF)
[2022-06-13 15:12] LABS: Troponin I < 0.012 ng/mL (0.01-0.034)
[2022-06-13 15:15] LABS: CKMB % Relative Index 2.1 % (1.5-5.0); Creatine Kinase MB 4.93 ng/mL (<2.37)
--- NOTE | 2022-06-13 15:33 | ED_ITS ---
HPI - Nausea/Vomiting/Diarrhea <FABIO Mcbride - Last Filed: 06/13/22 20:38> General Chief complaint: Nausea/Vomiting/Diarrhea Stated complaint: N/V/D Time Seen by Provider: 06/13/22 14:45 Source: patient Mode of arrival: EMS History of Present Illness HPI Narrative: 81-year-old male, nonsmoker, presents to the emergency department via EMS for nausea and vomiting multiple times earlier today. Patient states that he was eating a salad and grilled cheese, got care home through and excused himself to the bathroom where he vomited 4 times. Patient has had a heart attack in the past with similar, but not identical, symptoms. History of aortic valve disorder. Patient denies any chest pain or respiratory difficulty upon arrival to the ED. Related Data Home Medications Medication Instructions Recorded Confirmed carvedilol 3.125 mg tablet 3.125 mg PO BID 01/27/21 05/29/22 apixaban 5 mg tablet 5 mg PO BID 02/14/21 05/29/22 Previous Rx's Medication Instructions Recorded metformin 1,000 mg tablet,extended 1,000 mg PO BID #240 tabs 07/08/21 release 24hr hydrocortisone 2.5 % topical cream 1 applic topical BID PRN itching 09/22/21 #28 grams pen needle, diabetic 32 gauge x #100 ea 03/10/22 (BD Ultra-Fine Shanice Pen Needle) potassium citrate 15 mEq (1,620 15 meq PO DAILY #30 tabs 03/14/22 mg) tablet,extended release atorvastatin 80 mg tablet 80 mg PO BEDTIME #90 tabs 05/29/22 celecoxib 200 mg capsule (Celebrex) 200 mg PO DAILY #30 caps 05/29/22 citalopram 20 mg tablet 20 mg PO DAILY #90 tabs 06/05/22 tamsulosin 0.4 mg capsule 0.4 mg PO DAILY #60 caps 06/06/22 insulin glargine 100 unit/mL (3 See Rx Instructions .Route 06/13/22 mL) subcutaneous pen (Lantus .COMPLEX #15 mL Solostar U-100 Insulin) Allergies Allergy/AdvReac Type Severity Reaction Status Date / Time cat dander Allergy Mild Verified 05/29/22 13:04 <Remedios Mcguire MD - Last Filed: 06/14/22 08:00> History of Present Illness HPI Narrative: 81-year-old male, nonsmoker, with a history of coronary artery disease, atrial fibrillation anticoagulated on apixaban, hypertension, diabetes and BPH presents to the emergency department via EMS for nausea and vomiting multiple times earlier today. Patient states that he was eating a salad and grilled cheese, got care home through and excused himself to the bathroom where he vomited 4 times. Patient has had a heart attack in the past with similar, but not identical, symptoms. History of aortic valve disorder. Patient denies any chest pain or respiratory difficulty upon arrival to the ED. Review of Systems <FABIO Mcbride - Last Filed: 06/13/22 20:38> Review of Systems Narrative: Narrative: GENERAL: Denies chills, fatigue, fever, sweats. See HPI HEENT: Denies sinus pain, ear pain, sore throat, difficulty swallowing, dizziness. RESPIRATORY: Denies dyspnea, cough, wheezing, sputum. CARDIOVASCULAR: Denies chest pain, palpitations, edema. GASTROINTESTINAL: Denies nausea, vomiting, abdominal pain, diarrhea, constipation. : Denies dysuria, frequency, incontinence, hematuria, urinary retention, flank pain. MSK: Denies weakness, joint pain, or bony pain. SKIN: Denies rash, skin lesions, or pruritis. NEUROLOGIC: Denies weakness, dizziness, headache, numbness, confusion. PSYCHIATRIC: No concerning psychosocial issues. Patient History <FABIO Mcbride - Last Filed: 06/13/22 20:38> Medical History Acute embolism and thrombosis of unspecified deep veins of unspecified proximal lower extremity AF (atrial fibrillation) Allergies (~1967) Anticoagulated Anxiety Aortic stenosis (~2015) Aortic valve disorder Arthralgia of temporomandibular joint, unspecified side Arthritis of knee, left Arthrofibrosis of total knee arthroplasty Atherosclerotic heart disease of [place] coronary artery without angina pectoris Degenerative joint disease of knee Facet arthropathy, lumbar Lumbar radiculopathy Myocardial infarction Neurologic gait dysfunction Nonrheumatic aortic (valve) stenosis Other symptoms and signs involving the musculoskeletal system Pre-procedure lab exam Sacral dysfunction Surgical History History of arthroplasty of left knee Family History Father Cancer Mother Cancer Social History Smoking Status: Never smoker Smoking Status: Never smoker alcohol intake frequency: holidays/special occasions only Substance Use Type: does not use Exam <FABIO Mcbride - Last Filed: 06/13/22 20:38> Narrative Exam Narrative: Exam Narrative: GENERAL: This is a well-nourished, well-developed patient, in no acute distress HEAD: Atraumatic. Normocephalic. EYES: Pupils equal round and reactive. Extraocular motions intact. No scleral icterus, injection or drainage. CARDIOVASCULAR: Regular rate and rhythm with holosystolic murmur, aortic valve disorder, peripheral pulses intact, cap refill <2 sec. RESPIRATORY: Breath sounds equal and clear bilaterally. No wheezes, rales, or rh onchi. No cough. No increased respiratory effort. No accessory muscle use. GASTROINTESTINAL: Abdomen soft, mild right upper quadrant tenderness, nondistended without guarding or rebound. No suprapubic pain. MSK: Moves all extremities. Normal range of motion, no clubbing or edema. Neurovascularly intact. NEURO: A&O x 3. SKIN: Warm, dry, no rashes or lesions noted. Initial Vital Signs Initial Vital Signs: Vital Signs Temperature 100.0 F H 06/13/22 14:14 Pulse Rate 84 06/13/22 14:14 Respiratory Rate 13 06/13/22 14:14 Blood Pressure 168/75 H 06/13/22 14:14 Pulse Oximetry 99 06/13/22 14:14 Oxygen Delivery Method 06/13/22 14:14 Reviewed <Remedios Mcguire MD - Last Filed: 06/14/22 08:00> Initial Vital Signs Initial Vital Signs: Vital Signs Temperature 100.0 F H 06/13/22 14:14 Pulse Rate 84 06/13/22 14:14 Respiratory Rate 13 06/13/22 14:14 Blood Pressure 168/75 H 06/13/22 14:14 Pulse Oximetry 99 06/13/22 14:14 Oxygen Delivery Method 06/13/22 14:14 Scores <FABIO Mcbride - Last Filed: 06/13/22 20:38> HEART Score Heart Score history: Moderately Suspicious Heart Score EKG: Normal Heart Score Age: > or = 65 years old Heart Score risk factors: 1-2 risk factors Heart Score troponin: < or = to normal limit Heart Score Total: 4 <Remedios Mcguire MD - Last Filed: 06/14/22 08:00> HEART Score Heart Score Total: 4 Course <FAIBO Mcbride - Last Filed: 06/13/22 20:38> Orders Ordered: Acetaminophen (Acetaminophen 325 Mg Tablet) 650 mg PO Q6HR PRN PRN Reason: Fever/Mild Pain (1-3) Atorvastatin Calcium (Atorvastatin 20 Mg Tablet) 80 mg PO BEDTIME KEY Dextrose (Dextrose 50 % In Water 25 Gm/50 Ml Syringe) 25 gm IV PRN PRN PRN Reason: Hypoglycemia Dextrose (Dextrose 50 % In Water 25 Gm/50 Ml Syringe) 25 gm IV PRN PRN; Protocol PRN Reason: Hypoglycemia Sodium Chloride (Normal Saline 0.9%) 1,000 mls @ 100 mls/hr IV CONT KEY Last Infusion: 06/14/22 06:08 Dose: 100 mls/hr Documented By: Admin: 06/14/22 02:21 Dose: 100 mls/hr Documented By: RENETTA Heparin Sodium/Dextrose (Heparin Drip) 25,000 unit in 500 mls @ 20 mls/hr IV CONT KEY; Protocol Last Titration: 06/14/22 06:09 Dose: 20 mls/hr, 20 mls/hr Documented By: Admin: 06/14/22 02:53 Dose: 20 mls/hr, 20 mls/hr Documented By: RENETTA Insulin Glargine (Insulin Glargine 100 Unit/Ml 3ml Pen) 40 unit SUBCUT BEDTIME KEY Insulin Human Lispro (Insulin Lispro 100 Unit/Ml 3ml Vial) 0 unit SUBCUT ACHS KEY; Protocol Insulin Human Lispro (Insulin Lispro 100 Unit/Ml 3ml Vial) 0 unit SUBCUT ACHS KEY; Protocol Discontinued Medications Acetaminophen (Acetaminophen 325 Mg Tablet) 650 mg PO NOW ONE Stop: 06/13/22 20:27 Last Admin: 06/13/22 20:34 Dose: 650 mg Documented By: MARTINA Heparin Sodium (Porcine) (Heparin 5,000 Unit/Ml Vial) 4,000 unit IV NOW ONE Stop: 06/14/22 02:23 Last Admin: 06/14/22 02:42 Dose: 4,000 unit Documented By: RENETTA Sodium Chloride (Normal Saline 0.9%) 1,000 mls @ 1,000 mls/hr IV BOLUS ONE Stop: 06/13/22 23:44 Last Infusion: 06/14/22 00:44 Dose: 0 mls/hr Documented By: Admin: 06/13/22 22:47 Dose: 1,000 mls/hr Documented By: MARTINA Piperacillin Sod/Tazobactam (Sod 4.5 gm/ Sodium Chloride) 100 mls @ 200 mls/hr IV NOW ONE Stop: 06/13/22 23:37 Last Infusion: 06/14/22 00:44 Dose: 0 mls/hr Documented By: Admin: 06/13/22 23:46 Dose: 200 mls/hr Documented By: RENETTA Heparin Sodium/Dextrose (Heparin Drip) 25,000 unit in 500 mls @ 22.317 mls/hr IV CONT KEY; Protocol Last Admin: 06/14/22 02:44 Dose: Not Given Documented By: RENETTA Magnesium Sulfate (Magnesium Sulfate) 2 gm in 50 mls @ 150 mls/hr IV NOW ONE Stop: 06/14/22 03:12 Last Infusion: 06/14/22 04:02 Dose: 0 mls/hr Documented By: RENETTA Co-signed By: MACARENA Admin: 06/14/22 03:36 Dose: 150 mls/hr Documented By: RENETTA Co-signed By: MACARENA Methocarbamol (Methocarbamol 500 Mg Tablet) 500 mg PO NOW ONE Stop: 06/14/22 04:42 Last Admin: 06/14/22 04:51 Dose: 500 mg Documented By: RENETTA Vital Signs Vital signs: Vital Signs - 8 hr 06/13/22 18:30 06/13/22 18:30 06/13/22 18:45 Temperature 101.5 F H Pulse Rate 86 Respiratory Rate 24 Blood Pressure 124/58 L Pulse Oximetry 94 06/13/22 20:47 06/13/22 20:47 06/13/22 21:25 Temperature 99.7 F H Pulse Rate 80 Respiratory Rate Blood Pressure 125/58 L Pulse Oximetry 96 06/13/22 21:00 06/13/22 21:00 06/13/22 21:30 Temperature Pulse Rate 74 Respiratory Rate 20 Blood Pressure 120/53 L 107/55 L Pulse Oximetry 94 06/13/22 21:30 06/13/22 22:00 06/13/22 22:00 Temperature Pulse Rate 68 68 Respiratory Rate 21 22 Blood Pressure 95/53 L Pulse Oximetry 93 06/13/22 22:30 06/13/22 22:30 06/13/22 22:34 Temperature Pulse Rate 70 Respiratory Rate 21 Blood Pressure 94/49 L 92/52 L Pulse Oximetry 98 06/13/22 22:34 06/13/22 22:35 06/13/22 22:35 Temperature Pulse Rate 65 65 Respiratory Rate 23 19 Blood Pressure 92/54 L Pulse Oximetry 96 97 06/13/22 23:00 06/13/22 23:02 06/13/22 23:02 Temperature Pulse Rate 67 63 Respiratory Rate 21 22 Blood Pressure 100/47 L Pulse Oximetry 98 98 <Remedios Mcguire MD - Last Filed: 06/14/22 08:00> Orders Ordered: Acetaminophen (Acetaminophen 325 Mg Tablet) 650 mg PO Q6HR PRN PRN Reason: Fever/Mild Pain (1-3) Atorvastatin Calcium (Atorvastatin 20 Mg Tablet) 80 mg PO BEDTIME KEY Dextrose (Dextrose 50 % In Water 25 Gm/50 Ml Syringe) 25 gm IV PRN PRN PRN Reason: Hypoglycemia Dextrose (Dextrose 50 % In Water 25 Gm/50 Ml Syringe) 25 gm IV PRN PRN; Protocol PRN Reason: Hypoglycemia Sodium Chloride (Normal Saline 0.9%) 1,000 mls @ 100 mls/hr IV CONT KEY Last Infusion: 06/14/22 06:08 Dose: 100 mls/hr Documented By: Admin: 06/14/22 02:21 Dose: 100 mls/hr Documented By: RENETTA Heparin Sodium/Dextrose (Heparin Drip) 25,000 unit in 500 mls @ 20 mls/hr IV CONT KEY; Protocol Last Titration: 06/14/22 06:09 Dose: 20 mls/hr, 20 mls/hr Documented By: Admin: 06/14/22 02:53 Dose: 20 mls/hr, 20 mls/hr Documented By: RENETTA Insulin Glargine (Insulin Glargine 100 Unit/Ml 3ml Pen) 40 unit SUBCUT BEDTIME KEY Insulin Human Lispro (Insulin Lispro 100 Unit/Ml 3ml Vial) 0 unit SUBCUT ACHS KEY; Protocol Insulin Human Lispro (Insulin Lispro 100 Unit/Ml 3ml Vial) 0 unit SUBCUT ACHS KEY; Protocol Discontinued Medications Acetaminophen (Acetaminophen 325 Mg Tablet) 650 mg PO NOW ONE Stop: 06/13/22 20:27 Last Admin: 06/13/22 20:34 Dose: 650 mg Documented By: MARTINA Heparin Sodium (Porcine) (Heparin 5,000 Unit/Ml Vial) 4,000 unit IV NOW ONE Stop: 06/14/22 02:23 Last Admin: 06/14/22 02:42 Dose: 4,000 unit Documented By: RENETTA Sodium Chloride (Normal Saline 0.9%) 1,000 mls @ 1,000 mls/hr IV BOLUS ONE Stop: 06/13/22 23:44 Last Infusion: 06/14/22 00:44 Dose: 0 mls/hr Documented By: Admin: 06/13/22 22:47 Dose: 1,000 mls/hr Documented By: MARTINA Piperacillin Sod/Tazobactam (Sod 4.5 gm/ Sodium Chloride) 100 mls @ 200 mls/hr IV NOW ONE Stop: 06/13/22 23:37 Last Infusion: 06/14/22 00:44 Dose: 0 mls/hr Documented By: Admin: 06/13/22 23:46 Dose: 200 mls/hr Documented By: RENETTA Heparin Sodium/Dextrose (Heparin Drip) 25,000 unit in 500 mls @ 22.317 mls/hr IV CONT KEY; Protocol Last Admin: 06/14/22 02:44 Dose: Not Given Documented By: RENETTA Magnesium Sulfate (Magnesium Sulfate) 2 gm in 50 mls @ 150 mls/hr IV NOW ONE Stop: 06/14/22 03:12 Last Infusion: 06/14/22 04:02 Dose: 0 mls/hr Documented By: RENETTA Co-signed By: MACARENA Admin: 06/14/22 03:36 Dose: 150 mls/hr Documented By: RENETTA Co-signed By: MACARENA Methocarbamol (Methocarbamol 500 Mg Tablet) 500 mg PO NOW ONE Stop: 06/14/22 04:42 Last Admin: 06/14/22 04:51 Dose: 500 mg Documented By: RENETTA Vital Signs Vital signs: Vital Signs - 8 hr 06/13/22 18:30 06/13/22 18:30 06/13/22 18:45 Temperature 101.5 F H Pulse Rate 86 Respiratory Rate 24 Blood Pressure 124/58 L Pulse Oximetry 94 06/13/22 20:47 06/13/22 20:47 06/13/22 21:25 Temperature 99.7 F H Pulse Rate 80 Respiratory Rate Blood Pressure 125/58 L Pulse Oximetry 96 06/13/22 21:00 06/13/22 21:00 06/13/22 21:30 Temperature Pulse Rate 74 Respiratory Rate 20 Blood Pressure 120/53 L 107/55 L Pulse Oximetry 94 06/13/22 21:30 06/13/22 22:00 06/13/22 22:00 Temperature Pulse Rate 68 68 Respiratory Rate 21 22 Blood Pressure 95/53 L Pulse Oximetry 93 06/13/22 22:30 06/13/22 22:30 06/13/22 22:34 Temperature Pulse Rate 70 Respiratory Rate 21 Blood Pressure 94/49 L 92/52 L Pulse Oximetry 98 06/13/22 22:34 06/13/22 22:35 06/13/22 22:35 Temperature Pulse Rate 65 65 Respiratory Rate 23 19 Blood Pressure 92/54 L Pulse Oximetry 96 97 06/13/22 23:00 06/13/22 23:02 06/13/22 23:02 Temperature Pulse Rate 67 63 Respiratory Rate 21 22 Blood Pressure 100/47 L Pulse Oximetry 98 98 MDM - Nausea/Vomiting/Diarrhea <FABIO Mcbride - Last Filed: 06/13/22 20:38> Differential Diagnosis Differential diagnosis: Likely other (Nausea and vomiting) Lab Data Result diagrams: 06/13/22 20:40 06/13/22 20:40 Labs: Lab Results 06/13/22 06/13/22 06/13/22 Range/Units 14:26 14:37 14:37 WBC 15.4 H (4.5-11.0) X10^3/uL RBC 3.82 L (4.5-5.9) X10^6/uL Hgb 12.1 L (13.5-17.5) g/dL Hct 34.9 L (41-53) % MCV 91.5 (80-100) fL MCH 31.7 (26-34) PG MCHC 34.6 (30-36) % RDW 13.8 (11.6-14.8) % Plt Count 153 (150-400) X10^3/uL Neut % (Auto) 90.9 H (50-75) % Lymph % (Auto) 3.9 L (25-40) % [place] % (Auto) 4.7 (3-14) % Eos % (Auto) 0.3 L (2-4) % Baso % (Auto) 0.2 (0-2) % Neut # (Auto) 60070 H (7121-1521) /uL Lymph # (Auto) 600 L (2081-3449) /uL [place] # (Auto) 700 (0-900) /uL Eos # (Auto) 0 (0-450) /uL Baso # (Auto) 0 (0-100) /uL Total Counted Seg Neutrophils % (38-70) % Band Neutrophils % (3-7) % Lymphocytes % (Manual) (25-45) % Monocytes % (Manual) (2-11) % Neutrophils # (Manual) (9537-2082) /uL RBC Morphology PT 16.4 H (10.1-12.7) SECONDS INR 1.4 H (0.9-1.3) APTT 36 (26-36) SECONDS Sodium (137-145) mmol/L Potassium (3.4-5.1) mmol/L Chloride (98-107) mmol/L Carbon Dioxide (22-32) mmol/L BUN (9-20) mg/dL Creatinine (0.66-1.25) mg/dL Estimated GFR (>60) mL/min BUN/Creatinine Ratio (6-22) Glucose (80-110) mg/dL Hemoglobin A1c (4.0-6.0) % Lactate (0.7-2.1) mmol/L Calcium (8.4-10.2) mg/dL Magnesium (1.6-2.3) mg/dL Total Bilirubin (0.2-1.3) mg/dL AST (17-59) IU/L ALT (<50) IU/L Alkaline Phosphatase (38-126) U/L Total Creatine Kinase (55-170) U/L CK-MB (CK-2) (<2.37) ng/mL CK-MB (CK-2) Rel Index (1.5-5.0) % Troponin I (0.01-0.034) ng/mL NT-Pro-B Natriuret Pep (<450) pg/mL Total Protein (6.3-8.2) g/dL Albumin (3.5-5.0) g/dL Globulin (1.7-4.1) g/dL Albumin/Globulin Ratio (1.0-2.8) Lipase (23-300) U/L Urine RBC (0-5/HPF) Urine WBC (0-5/HPF) Ur Squamous Epith Cells (0-5/HPF) Urine Bacteria (None) Ur Culture Indicated? SARS-CoV-2 (PCR) Negative (Negative) 06/13/22 06/13/22 06/13/22 Range/Units 14:37 14:42 16:35 WBC (4.5-11.0) X10^3/uL RBC (4.5-5.9) X10^6/uL Hgb (13.5-17.5) g/dL Hct (41-53) % MCV (80-100) fL MCH (26-34) PG MCHC (30-36) % RDW (11.6-14.8) % Plt Count (150-400) X10^3/uL Neut % (Auto) (50-75) % Lymph % (Auto) (25-40) % [place] % (Auto) (3-14) % Eos % (Auto) (2-4) % Baso % (Auto) (0-2) % Neut # (Auto) (8826-2600) /uL Lymph # (Auto) (0447-7195) /uL [place] # (Auto) (0-900) /uL Eos # (Auto) (0-450) /uL Baso # (Auto) (0-100) /uL Total Counted Seg Neutrophils % (38-70) % Band Neutrophils % (3-7) % Lymphocytes % (Manual) (25-45) % Monocytes % (Manual) (2-11) % Neutrophils # (Manual) (3951-0704) /uL RBC Morphology PT (10.1-12.7) SECONDS INR (0.9-1.3) APTT (26-36) SECONDS Sodium 142 (137-145) mmol/L Potassium 4.7 (3.4-5.1) mmol/L Chloride 105 (98-107) mmol/L Carbon Dioxide 28 (22-32) mmol/L BUN 36 H (9-20) mg/dL Creatinine 1.19 (0.66-1.25) mg/dL Estimated GFR > 60 (>60) mL/min BUN/Creatinine Ratio 30.3 H (6-22) Glucose 98 (80-110) mg/dL Hemoglobin A1c (4.0-6.0) % Lactate (0.7-2.1) mmol/L Calcium 9.0 (8.4-10.2) mg/dL Magnesium 1.5 L (1.6-2.3) mg/dL Total Bilirubin 1.4 H (0.2-1.3) mg/dL AST 26 (17-59) IU/L ALT 21 (<50) IU/L Alkaline Phosphatase 100 (38-126) U/L Total Creatine Kinase 230 H (55-170) U/L CK-MB (CK-2) 4.93 H (<2.37) ng/mL CK-MB (CK-2) Rel Index 2.1 (1.5-5.0) % Troponin I < 0.012 0.014 (0.01-0.034) ng/mL NT-Pro-B Natriuret Pep (<450) pg/mL Total Protein 7.6 (6.3-8.2) g/dL Albumin 4.3 (3.5-5.0) g/dL Globulin 3.3 (1.7-4.1) g/dL Albumin/Globulin Ratio 1.3 (1.0-2.8) Lipase 158 (23-300) U/L Urine RBC 0-1/hpf (0-5/HPF) Urine WBC 0-1/hpf (0-5/HPF) Ur Squamous Epith Cells None seen (0-5/HPF) Urine Bacteria None seen (None) Ur Culture Indicated? Cult not indicated SARS-CoV-2 (PCR) (Negative) 06/13/22 06/13/22 06/13/22 Range/Units 19:54 20:40 20:40 WBC 17.4 H (4.5-11.0) X10^3/uL RBC 3.50 L (4.5-5.9) X10^6/uL Hgb 11.1 L (13.5-17.5) g/dL Hct 32.0 L (41-53) % MCV 91.5 (80-100) fL MCH 31.6 (26-34) PG MCHC 34.5 (30-36) % RDW 13.7 (11.6-14.8) % Plt Count 154 (150-400) X10^3/uL Neut % (Auto) Not Reportable (50-75) % Lymph % (Auto) Not Reportable (25-40) % [place] % (Auto) Not Reportable (3-14) % Eos % (Auto) Not Reportable (2-4) % Baso % (Auto) Not Reportable (0-2) % Neut # (Auto) (3504-5097) /uL Lymph # (Auto) Not Reportable (8498-0417) /uL [place] # (Auto) Not Reportable (0-900) /uL Eos # (Auto) (0-450) /uL Baso # (Auto) Not Reportable (0-100) /uL Total Counted 100 Seg Neutrophils % 68.0 (38-70) % Band Neutrophils % 26.0 H (3-7) % Lymphocytes % (Manual) 4.0 L (25-45) % Monocytes % (Manual) 2.0 (2-11) % Neutrophils # (Manual) 95088 H (7431-3724) /uL RBC Morphology Normal morphology PT (10.1-12.7) SECONDS INR (0.9-1.3) APTT (26-36) SECONDS Sodium 137 (137-145) mmol/L Potassium 4.0 (3.4-5.1) mmol/L Chloride 103 (98-107) mmol/L Carbon Dioxide 27 (22-32) mmol/L BUN 33 H (9-20) mg/dL Creatinine 1.26 H (0.66-1.25) mg/dL Estimated GFR 58 L (>60) mL/min BUN/Creatinine Ratio 26.2 H (6-22) Glucose 70 L (80-110) mg/dL Hemoglobin A1c (4.0-6.0) % Lactate 1.6 (0.7-2.1) mmol/L Calcium 8.2 L (8.4-10.2) mg/dL Magnesium (1.6-2.3) mg/dL Total Bilirubin 1.4 H (0.2-1.3) mg/dL AST 29 (17-59) IU/L ALT 18 (<50) IU/L Alkaline Phosphatase 75 (38-126) U/L Total Creatine Kinase (55-170) U/L CK-MB (CK-2) (<2.37) ng/mL CK-MB (CK-2) Rel Index (1.5-5.0) % Troponin I (0.01-0.034) ng/mL NT-Pro-B Natriuret Pep (<450) pg/mL Total Protein 6.7 (6.3-8.2) g/dL Albumin 3.7 (3.5-5.0) g/dL Globulin 3.0 (1.7-4.1) g/dL Albumin/Globulin Ratio 1.2 (1.0-2.8) Lipase (23-300) U/L Urine RBC (0-5/HPF) Urine WBC (0-5/HPF) Ur Squamous Epith Cells (0-5/HPF) Urine Bacteria (None) Ur Culture Indicated? SARS-CoV-2 (PCR) (Negative) 06/13/22 06/13/22 Range/Units 20:40 20:40 WBC (4.5-11.0) X10^3/uL RBC (4.5-5.9) X10^6/uL Hgb (13.5-17.5) g/dL Hct (41-53) % MCV (80-100) fL MCH (26-34) PG MCHC (30-36) % RDW (11.6-14.8) % Plt Count (150-400) X10^3/uL Neut % (Auto) (50-75) % Lymph % (Auto) (25-40) % [place] % (Auto) (3-14) % Eos % (Auto) (2-4) % Baso % (Auto) (0-2) % Neut # (Auto) (9167-4903) /uL Lymph # (Auto) (9440-9755) /uL [place] # (Auto) (0-900) /uL Eos # (Auto) (0-450) /uL Baso # (Auto) (0-100) /uL Total Counted Seg Neutrophils % (38-70) % Band Neutrophils % (3-7) % Lymphocytes % (Manual) (25-45) % Monocytes % (Manual) (2-11) % Neutrophils # (Manual) (9960-0522) /uL RBC Morphology PT (10.1-12.7) SECONDS INR (0.9-1.3) APTT (26-36) SECONDS Sodium (137-145) mmol/L Potassium (3.4-5.1) mmol/L Chloride (98-107) mmol/L Carbon Dioxide (22-32) mmol/L BUN (9-20) mg/dL Creatinine (0.66-1.25) mg/dL Estimated GFR (>60) mL/min BUN/Creatinine Ratio (6-22) Glucose (80-110) mg/dL Hemoglobin A1c 6.5 H (4.0-6.0) % Lactate (0.7-2.1) mmol/L Calcium (8.4-10.2) mg/dL Magnesium (1.6-2.3) mg/dL Total Bilirubin (0.2-1.3) mg/dL AST (17-59) IU/L ALT (<50) IU/L Alkaline Phosphatase (38-126) U/L Total Creatine Kinase (55-170) U/L CK-MB (CK-2) (<2.37) ng/mL CK-MB (CK-2) Rel Index (1.5-5.0) % Troponin I (0.01-0.034) ng/mL NT-Pro-B Natriuret Pep 1460 H (<450) pg/mL Total Protein (6.3-8.2) g/dL Albumin (3.5-5.0) g/dL Globulin (1.7-4.1) g/dL Albumin/Globulin Ratio (1.0-2.8) Lipase (23-300) U/L Urine RBC (0-5/HPF) Urine WBC (0-5/HPF) Ur Squamous Epith Cells (0-5/HPF) Urine Bacteria (None) Ur Culture Indicated? SARS-CoV-2 (PCR) (Negative) Point of Care Testing Glucose POC 122 Urine Dip Bedside Urine Glucose Negative Bedside Urine Bilirubin - Negative Bedside Urine Ketone - Negative Urine Specific [place] 1.015 Bedside Urine Occult Blood + Bedside Urine pH 6.0 Bedside Urine Protein +/- 15 Bedside Urine Urobilinogen - Negative Bedside Urine Nitrite - Negative Bedside Urine Leukocytes - Negative Esterase Imaging Data Chest x-ray: Radiologist's Impression: [address] [address] XRay Report Signed Patient: Ollie Thomas MR#: [id number] : 1940 Acct:[id number] Age/Sex: 81 / M Date of Service: 06/13/22 Loc: ED Accession Number: [id number] ?? Procedure: XR chest 1V Ordering Provider: Mia Castro D.O. PROCEDURE:? XR CHEST 1V ? INDICATIONS:? chest pain ? TECHNIQUE:? One view of the chest was acquired.? ? COMPARISON:? [facility], , XR CHEST 2V, 12/04/2019, 11:25. ? FINDINGS:? ? Surgical changes and devices:? None.? ? Lungs and pleura:? Lungs are clear.? No pleural effusions or pneumothorax.? ? Mediastinum:? Mediastinal contours appear normal.? Heart size is normal.? ? Bones and chest wall:? No suspicious bony lesions.? Overlying soft tissues appear unremarkable.? ? IMPRESSION:? No acute cardiopulmonary findings ? ? ? Approved by: Patrick Hammond M.D. on 06/13/2022 at 14:28? US - abdomen: Radiologist's Impression: [address] [address] Ultrasound Report Signed Patient: Ollie Thomas MR#: [id number] : 1940 Acct:[id number] Age/Sex: 81 / M Date of Service: 06/13/22 Loc: ED Accession Number: [id number] ?? Procedure: US abdomen limited Ordering Provider: Rizwan Stephens PROCEDURE:? US ABDOMEN LIMITED ? INDICATIONS:? RUQ pain ? TECHNIQUE:? Real-time scanning was performed of the abdominal and retroperitoneal organs, with image documentation.? ? COMPARISON:? None. ? FINDINGS: ? Liver:? Hepatic parenchyma shows diffuse increased echogenicity consistent with fatty infiltration. ? Gallbladder:? Shadowing calculi noted within the lumen the gallbladder without gallbladder wall thickening or pericholecystic fluid.? No Amaya sign ? Common Bile Duct:? 5.3 mm. ? Pancreas:? Unremarkable as visualized ? IMPRESSION: ? 1. Cholelithiasis without ultrasound evidence of acute cholecystitis. ? 2. Hepatic fatty infiltration ? Approved by: Patrick Hammond M.D. on 06/13/2022 at 16:35? ECG Data Attestation: I personally reviewed and interpreted this ECG as follows: Prior ECG tracings: not available for review Interpretation: NSR w/ vent rate of [address]-t abnormality. MDM Narrative Medical decision making narrative: 81-year-old male, with history a PR, presents to emergency department via EMS for nausea vomiting x4 times earlier today. Elevated WBC, normal troponin and normal EKG. Chest x-ray was normal. Abdominal ultrasound revealed cholelithiasis without evidence of cholecystitis. Heart score was 4. Repeat troponin slightly elevated to 0.014. Repeat EKG correlated well with previous EKG. Plan was to discharge patient. As patient was being prepared for discharge, final set of vital signs revealed a elevated temperature of 101.4?. Blood cultures and lactate ordered. Lactate normal. Abdominal CT ordered. Turn ed over care to Dr. Mcguire. <Remedios Mcguire MD - Last Filed: 06/14/22 08:00> Lab Data Labs: Lab Results 06/13/22 06/13/22 06/13/22 Range/Units 14:26 14:37 14:37 WBC 15.4 H (4.5-11.0) X10^3/uL RBC 3.82 L (4.5-5.9) X10^6/uL Hgb 12.1 L (13.5-17.5) g/dL Hct 34.9 L (41-53) % MCV 91.5 (80-100) fL MCH 31.7 (26-34) PG MCHC 34.6 (30-36) % RDW 13.8 (11.6-14.8) % Plt Count 153 (150-400) X10^3/uL Neut % (Auto) 90.9 H (50-75) % Lymph % (Auto) 3.9 L (25-40) % [place] % (Auto) 4.7 (3-14) % Eos % (Auto) 0.3 L (2-4) % Baso % (Auto) 0.2 (0-2) % Neut # (Auto) 03277 H (7080-6864) /uL Lymph # (Auto) 600 L (3457-3822) /uL [place] # (Auto) 700 (0-900) /uL Eos # (Auto) 0 (0-450) /uL Baso # (Auto) 0 (0-100) /uL Total Counted Seg Neutrophils % (38-70) % Band Neutrophils % (3-7) % Lymphocytes % (Manual) (25-45) % Monocytes % (Manual) (2-11) % Neutrophils # (Manual) (3559-9126) /uL RBC Morphology PT 16.4 H (10.1-12.7) SECONDS INR 1.4 H (0.9-1.3) APTT 36 (26-36) SECONDS Sodium (137-145) mmol/L Potassium (3.4-5.1) mmol/L Chloride (98-107) mmol/L Carbon Dioxide (22-32) mmol/L BUN (9-20) mg/dL Creatinine (0.66-1.25) mg/dL Estimated GFR (>60) mL/min BUN/Creatinine Ratio (6-22) Glucose (80-110) mg/dL Hemoglobin A1c (4.0-6.0) % Lactate (0.7-2.1) mmol/L Calcium (8.4-10.2) mg/dL Magnesium (1.6-2.3) mg/dL Total Bilirubin (0.2-1.3) mg/dL AST (17-59) IU/L ALT (<50) IU/L Alkaline Phosphatase (38-126) U/L Total Creatine Kinase (55-170) U/L CK-MB (CK-2) (<2.37) ng/mL CK-MB (CK-2) Rel Index (1.5-5.0) % Troponin I (0.01-0.034) ng/mL NT-Pro-B Natriuret Pep (<450) pg/mL Total Protein (6.3-8.2) g/dL Albumin (3.5-5.0) g/dL Globulin (1.7-4.1) g/dL Albumin/Globulin Ratio (1.0-2.8) Lipase (23-300) U/L Urine RBC (0-5/HPF) Urine WBC (0-5/HPF) Ur Squamous Epith Cells (0-5/HPF) Urine Bacteria (None) Ur Culture Indicated? SARS-CoV-2 (PCR) Negative (Negative) 06/13/22 06/13/22 06/13/22 Range/Units 14:37 14:42 16:35 WBC (4.5-11.0) X10^3/uL RBC (4.5-5.9) X10^6/uL Hgb (13.5-17.5) g/dL Hct (41-53) % MCV (80-100) fL MCH (26-34) PG MCHC (30-36) % RDW (11.6-14.8) % Plt Count (150-400) X10^3/uL Neut % (Auto) (50-75) % Lymph % (Auto) (25-40) % [place] % (Auto) (3-14) % Eos % (Auto) (2-4) % Baso % (Auto) (0-2) % Neut # (Auto) (0953-0107) /uL Lymph # (Auto) (8802-9384) /uL [place] # (Auto) (0-900) /uL Eos # (Auto) (0-450) /uL Baso # (Auto) (0-100) /uL Total Counted Seg Neutrophils % (38-70) % Band Neutrophils % (3-7) % Lymphocytes % (Manual) (25-45) % Monocytes % (Manual) (2-11) % Neutrophils # (Manual) (8346-2818) /uL RBC Morphology PT (10.1-12.7) SECONDS INR (0.9-1.3) APTT (26-36) SECONDS Sodium 142 (137-145) mmol/L Potassium 4.7 (3.4-5.1) mmol/L Chloride 105 (98-107) mmol/L Carbon Dioxide 28 (22-32) mmol/L BUN 36 H (9-20) mg/dL Creatinine 1.19 (0.66-1.25) mg/dL Estimated GFR > 60 (>60) mL/min BUN/Creatinine Ratio 30.3 H (6-22) Glucose 98 (80-110) mg/dL Hemoglobin A1c (4.0-6.0) % Lactate (0.7-2.1) mmol/L Calcium 9.0 (8.4-10.2) mg/dL Magnesium 1.5 L (1.6-2.3) mg/dL Total Bilirubin 1.4 H (0.2-1.3) mg/dL AST 26 (17-59) IU/L ALT 21 (<50) IU/L Alkaline Phosphatase 100 (38-126) U/L Total Creatine Kinase 230 H (55-170) U/L CK-MB (CK-2) 4.93 H (<2.37) ng/mL CK-MB (CK-2) Rel Index 2.1 (1.5-5.0) % Troponin I < 0.012 0.014 (0.01-0.034) ng/mL NT-Pro-B Natriuret Pep (<450) pg/mL Total Protein 7.6 (6.3-8.2) g/dL Albumin 4.3 (3.5-5.0) g/dL Globulin 3.3 (1.7-4.1) g/dL Albumin/Globulin Ratio 1.3 (1.0-2.8) Lipase 158 (23-300) U/L Urine RBC 0-1/hpf (0-5/HPF) Urine WBC 0-1/hpf (0-5/HPF) Ur Squamous Epith Cells None seen (0-5/HPF) Urine Bacteria None seen (None) Ur Culture Indicated? Cult not indicated SARS-CoV-2 (PCR) (Negative) 06/13/22 06/13/22 06/13/22 Range/Units 19:54 20:40 20:40 WBC 17.4 H (4.5-11.0) X10^3/uL RBC 3.50 L (4.5-5.9) X10^6/uL Hgb 11.1 L (13.5-17.5) g/dL Hct 32.0 L (41-53) % MCV 91.5 (80-100) fL MCH 31.6 (26-34) PG MCHC 34.5 (30-36) % RDW 13.7 (11.6-14.8) % Plt Count 154 (150-400) X10^3/uL Neut % (Auto) Not Reportable (50-75) % Lymph % (Auto) Not Reportable (25-40) % [place] % (Auto) Not Reportable (3-14) % Eos % (Auto) Not Reportable (2-4) % Baso % (Auto) Not Reportable (0-2) % Neut # (Auto) (6642-4603) /uL Lymph # (Auto) Not Reportable (1447-4018) /uL [place] # (Auto) Not Reportable (0-900) /uL Eos # (Auto) (0-450) /uL Baso # (Auto) Not Reportable (0-100) /uL Total Counted 100 Seg Neutrophils % 68.0 (38-70) % Band Neutrophils % 26.0 H (3-7) % Lymphocytes % (Manual) 4.0 L (25-45) % Monocytes % (Manual) 2.0 (2-11) % Neutrophils # (Manual) 77472 H (5232-5457) /uL RBC Morphology Normal morphology PT (10.1-12.7) SECONDS INR (0.9-1.3) APTT (26-36) SECONDS Sodium 137 (137-145) mmol/L Potassium 4.0 (3.4-5.1) mmol/L Chloride 103 (98-107) mmol/L Carbon Dioxide 27 (22-32) mmol/L BUN 33 H (9-20) mg/dL Creatinine 1.26 H (0.66-1.25) mg/dL Estimated GFR 58 L (>60) mL/min BUN/Creatinine Ratio 26.2 H (6-22) Glucose 70 L (80-110) mg/dL Hemoglobin A1c (4.0-6.0) % Lactate 1.6 (0.7-2.1) mmol/L Calcium 8.2 L (8.4-10.2) mg/dL Magnesium (1.6-2.3) mg/dL Total Bilirubin 1.4 H (0.2-1.3) mg/dL AST 29 (17-59) IU/L ALT 18 (<50) IU/L Alkaline Phosphatase 75 (38-126) U/L Total Creatine Kinase (55-170) U/L CK-MB (CK-2) (<2.37) ng/mL CK-MB (CK-2) Rel Index (1.5-5.0) % Troponin I (0.01-0.034) ng/mL NT-Pro-B Natriuret Pep (<450) pg/mL Total Protein 6.7 (6.3-8.2) g/dL Albumin 3.7 (3.5-5.0) g/dL Globulin 3.0 (1.7-4.1) g/dL Albumin/Globulin Ratio 1.2 (1.0-2.8) Lipase (23-300) U/L Urine RBC (0-5/HPF) Urine WBC (0-5/HPF) Ur Squamous Epith Cells (0-5/HPF) Urine Bacteria (None) Ur Culture Indicated? SARS-CoV-2 (PCR) (Negative) 06/13/22 06/13/22 Range/Units 20:40 20:40 WBC (4.5-11.0) X10^3/uL RBC (4.5-5.9) X10^6/uL Hgb (13.5-17.5) g/dL Hct (41-53) % MCV (80-100) fL MCH (26-34) PG MCHC (30-36) % RDW (11.6-14.8) % Plt Count (150-400) X10^3/uL Neut % (Auto) (50-75) % Lymph % (Auto) (25-40) % [place] % (Auto) (3-14) % Eos % (Auto) (2-4) % Baso % (Auto) (0-2) % Neut # (Auto) (7522-7870) /uL Lymph # (Auto) (2401-4980) /uL [place] # (Auto) (0-900) /uL Eos # (Auto) (0-450) /uL Baso # (Auto) (0-100) /uL Total Counted Seg Neutrophils % (38-70) % Band Neutrophils % (3-7) % Lymphocytes % (Manual) (25-45) % Monocytes % (Manual) (2-11) % Neutrophils # (Manual) (4150-7999) /uL RBC Morphology PT (10.1-12.7) SECONDS INR (0.9-1.3) APTT (26-36) SECONDS Sodium (137-145) mmol/L Potassium (3.4-5.1) mmol/L Chloride (98-107) mmol/L Carbon Dioxide (22-32) mmol/L BUN (9-20) mg/dL Creatinine (0.66-1.25) mg/dL Estimated GFR (>60) mL/min BUN/Creatinine Ratio (6-22) Glucose (80-110) mg/dL Hemoglobin A1c 6.5 H (4.0-6.0) % Lactate (0.7-2.1) mmol/L Calcium (8.4-10.2) mg/dL Magnesium (1.6-2.3) mg/dL Total Bilirubin (0.2-1.3) mg/dL AST (17-59) IU/L ALT (<50) IU/L Alkaline Phosphatase (38-126) U/L Total Creatine Kinase (55-170) U/L CK-MB (CK-2) (<2.37) ng/mL CK-MB (CK-2) Rel Index (1.5-5.0) % Troponin I (0.01-0.034) ng/mL NT-Pro-B Natriuret Pep 1460 H (<450) pg/mL Total Protein (6.3-8.2) g/dL Albumin (3.5-5.0) g/dL Globulin (1.7-4.1) g/dL Albumin/Globulin Ratio (1.0-2.8) Lipase (23-300) U/L Urine RBC (0-5/HPF) Urine WBC (0-5/HPF) Ur Squamous Epith Cells (0-5/HPF) Urine Bacteria (None) Ur Culture Indicated? SARS-CoV-2 (PCR) (Negative) Point of Care Testing Glucose POC 122 Urine Dip Bedside Urine Glucose Negative Bedside Urine Bilirubin - Negative Bedside Urine Ketone - Negative Urine Specific [place] 1.015 Bedside Urine Occult Blood + Bedside Urine pH 6.0 Bedside Urine Protein +/- 15 Bedside Urine Urobilinogen - Negative Bedside Urine Nitrite - Negative Bedside Urine Leukocytes - Negative Esterase Imaging Data Chest x-ray: Radiologist's Impression: PROCEDURE:? XR CHEST 1V ? INDICATIONS:? chest pain ? TECHNIQUE:? One view of the chest was acquired.? ? COMPARISON:? [facility], CR, XR CHEST 2V, 12/04/2019, 11:25. ? FINDINGS:? ? Surgical changes and devices:? None.? ? Lungs and pleura:? Lungs are clear.? No pleural effusions or pneumothorax.? ? Mediastinum:? Mediastinal contours appear normal.? Heart size is normal.? ? Bones and chest wall:? No suspicious bony lesions.? Overlying soft tissues appear unremarkable.? ? IMPRESSION:? No acute cardiopulmonary findings ? ? ? Approved by: Patrick Hammond M.D. on 06/13/2022 at 14:28? US - abdomen: Radiologist's Impression: PROCEDURE:? US ABDOMEN LIMITED ? INDICATIONS:? RUQ pain ? TECHNIQUE:? Real-time scanning was performed of the abdominal and retroperitoneal organs, with image documentation.? ? COMPARISON:? None. ? FINDINGS: ? Liver:? Hepatic parenchyma shows diffuse increased echogenicity consistent with fatty infiltration. ? Gallbladder:? Shadowing calculi noted within the lumen the gallbladder without gallbladder wall thickening or pericholecystic fluid.? No Amaya sign ? Common Bile Duct:? 5.3 mm. ? Pancreas:? Unremarkable as visualized ? IMPRESSION: ? 1. Cholelithiasis without ultrasound evidence of acute cholecystitis. ? 2. Hepatic fatty infiltration ? Approved by: Patrick Hammond M.D. on 06/13/2022 at 16:35? CT scan - abdomen/pelvis: Radiologist's Impression: FINDINGS:? Image quality:? Excellent.? ? Lung bases:? Minor reticulation posteriorly at both lung Heart:? Heavy coronary artery calcification and aortic valvular calcification.? Moderate mitral annular calcification. ? ABDOMEN: Liver:? No masses Gallbladder:? Normal wall thickness. Biliary ducts:? Nondilated. Pancreas:? There are few punctate calcifications in the uncinate process.? No pancreatic ductal dilatation.. Spleen:? Normal size. Adrenal Glands:? No nodules. Kidneys and Ureters:? Normal enhancement.? No hydronephrosis or hydroureter.? Nonobstructing left lower pole intrarenal calcifications.? A few small exophytic left lower pole cysts. ? Stomach and Bowel:? The stomach is normal.? There is a prominent air and fluid- filled duodenal diverticulum arising from the 2nd portion.? There are few air-fluid levels in nondistended mid abdominal small bowel loops.? There is a normal appendix.? There is decompression of the descending and sigmoid colon.? Mild circumferential long segment wall thickening of the sigmoid colon and rectum.? No significant pericolonic inflammatory changes. Peritoneum:? No abnormal intraperitoneal fluid.? No free air.? ? Ventral Wall: ? No hernias.? Abdominal Nodes:? No retroperitoneal or mesenteric adenopathy by size criteria.? Vessels:? Aorta and inferior vena cava are normal in size.? Retro aortic left renal vein. ? PELVIS: Pelvic Organs:? Moderate prostatomegaly. Bladder:? Normal urinary bladder wall thickness. Pelvic Nodes:? Slightly prominent left inguinal lymph nodes. Miscellaneous: No hernias are seen. ? ? ? Bones:? Disc and endplate degeneration L2-3 and L5-S1. ? ? IMPRESSION:? ? 1. Mild long segment circumferential wall thickening of sigmoid colon and rectum suggesting infectious or inflammatory proctocolitis.? Correlate clinically. ? 2. Air-fluid levels in normal caliber small bowel loops may indicate ileus or enteritis. ? 3. Nonobstructing left lower pole intrarenal calculi. ? 4. Punctate uncinate process calcifications suggesting remote or chronic pancreatitis.? ? ? Dictated by: Audrey Monroe M.D. on 06/13/2022 at 20:38 ? ? [facility] Narrative Medical decision making narrative: 81-year-old male, with history a PR, presents to emergency department via EMS for nausea vomiting x4 times earlier today. Elevated WBC, normal troponin and normal EKG. Chest x-ray was normal. Abdominal ultrasound revealed cholelithiasis without evidence of cholecystitis. Heart score was 4. Repeat troponin slightly elevated to 0.014. Repeat EKG correlated well with previous EKG. Plan was to discharge patient. As patient was being prepared for d ischarge, final set of vital signs revealed a elevated temperature of 101.4?. Blood cultures and lactate ordered. Lactate normal. Abdominal CT ordered. Turned over care to Dr. Mcguire. Additional workup for this gentleman indicates that his white blood cell count is increasing he did have a fever in the emergency department, his CT scan shows mild long segment circumferential wall thickening of sigmoid colon and rectum suggesting infectious or inflammatory proctocolitis and Air-fluid levels in normal caliber small bowel loops may indicate ileus or enteritis. On clinical re-evaluation he does not have an acute surgical abdomen however he does look pale fatigued and is slightly confused. His a blood pressure is decreasing but does seem to respond to fluids. There is no evidence of appendicitis or acute surgical abdomen. No evidence of acute coronary syndrome, acute blood loss, pneumonia, urinary tract infection, stroke, 2 L of fluid is bolused. Zosyn is started, plans for hospital admission are made. 1145pm Discussed with hospitalist, admit accepted 220 am patient is still physically in the emergency department. Troponin returns at 1.270. Earlier today was 0.014. EKG has been ordered. Patient has been admitted and findings reviewed with the hospitalist. Patient was re-evaluated by the hospitalist in the emergency department and transferred to [facility] for cardiac consultation. Heparin drip had been started. He Discharge Plan Departure Patient Disposition: [facility] Clinical Impression: Colitis, Acute hypotension Abdominal pain Qualifiers: Abdominal location: generalized Qualified Code(s): R10.84 - Generalized abdominal pain Admit Provider: Felisa Villarreal
--- NOTE | 2022-06-13 15:49 | PC.NURSE ---
While out to lunch had sudden onset nausea/vomiting/diarrhea with sweating. Denies pain.
--- NOTE | 2022-06-13 16:01 | DI.US.S_ITS ---
PROCEDURE: US ABDOMEN LIMITED INDICATIONS: RUQ pain TECHNIQUE: Real-time scanning was performed of the abdominal and retroperitoneal organs, with image documentation. COMPARISON: None. FINDINGS: Liver: Hepatic parenchyma shows diffuse increased echogenicity consistent with fatty infiltration. Gallbladder: Shadowing calculi noted within the lumen the gallbladder without gallbladder wall thickening or pericholecystic fluid. No Amaya sign Common Bile Duct: 5.3 mm. Pancreas: Unremarkable as visualized IMPRESSION: 1. Cholelithiasis without ultrasound evidence of acute cholecystitis. 2. Hepatic fatty infiltration Approved by: Patrick Hammond M.D. on 06/13/2022 at 16:35
[2022-06-13 17:20] LABS: Troponin I 0.014 ng/mL (0.01-0.034)
--- NOTE | 2022-06-13 19:34 | DI.CT.S_ITS ---
PROCEDURE: CT ABDOMEN PELVIS W CON INDICATIONS: abdominal pain TECHNIQUE: After the administration of intravenous contrast, axial sections acquired from the lung bases to the pubic symphysis. Coronal and sagittal reformats were performed. For radiation dose reduction, the following was used: automated exposure control, adjustment of mA and/or kV according to patient size. COMPARISON: [facility], CT, CT ABDOMEN PELVIS W CON, 03/07/2022, 13:42. FINDINGS: Image quality: Excellent. Lung bases: Minor reticulation posteriorly at both lung Heart: Heavy coronary artery calcification and aortic valvular calcification. Moderate mitral annular calcification. ABDOMEN: Liver: No masses Gallbladder: Normal wall thickness. Biliary ducts: Nondilated. Pancreas: There are few punctate calcifications in the uncinate process. No pancreatic ductal dilatation.. Spleen: Normal size. Adrenal Glands: No nodules. Kidneys and Ureters: Normal enhancement. No hydronephrosis or hydroureter. Nonobstructing left lower pole intrarenal calcifications. A few small exophytic left lower pole cysts. Stomach and Bowel: The stomach is normal. There is a prominent air and fluid-filled duodenal diverticulum arising from the 2nd portion. There are few air-fluid levels in nondistended mid abdominal small bowel loops. There is a normal appendix. There is decompression of the descending and sigmoid colon. Mild circumferential long segment wall thickening of the sigmoid colon and rectum. No significant pericolonic inflammatory changes. Peritoneum: No abnormal intraperitoneal fluid. No free air. Ventral Wall: No hernias. Abdominal Nodes: No retroperitoneal or mesenteric adenopathy by size criteria. Vessels: Aorta and inferior vena cava are normal in size. Retro aortic left renal vein. PELVIS: Pelvic Organs: Moderate prostatomegaly. Bladder: Normal urinary bladder wall thickness. Pelvic Nodes: Slightly prominent left inguinal lymph nodes. Miscellaneous: No hernias are seen. Bones: Disc and endplate degeneration L2-3 and L5-S1. IMPRESSION: 1. Mild long segment circumferential wall thickening of sigmoid colon and rectum suggesting infectious or inflammatory proctocolitis. Correlate clinically. 2. Air-fluid levels in normal caliber small bowel loops may indicate ileus or enteritis. 3. Nonobstructing left lower pole intrarenal calculi. 4. Punctate uncinate process calcifications suggesting remote or chronic pancreatitis. Dictated by: Audrey Monroe M.D. on 06/13/2022 at 20:38 Approved by: Audrey Monroe M.D. on 06/13/2022 at 20:45
[2022-06-13 20:14] LABS: Lactate (Lactic Acid) 1.6 mmol/L (0.7-2.1)
[2022-06-13] MEDS: ACETAMINOPHEN 325 MG TABLET 650 MG PO (20:34)
[2022-06-13 20:53] LABS: Hemoglobin 11.1 g/dL (13.5-17.5); Mean Corpuscular HGB Conc 34.5 % (30-36); Mean Corpuscular Hemoglobin 31.6 PG (26-34); Mean Corpuscular Volume 91.5 fL (80-100); Platelet Count 154 X10^3/uL (150-400); Red Cell Distribution Width 13.7 % (11.6-14.8); White Blood Cell Count 17.4 X10^3/uL (4.5-11.0)
[2022-06-13 21:17] LABS: Alanine Aminotransferase 18 IU/L (<50); Albumin 3.7 g/dL (3.5-5.0); Albumin Globulin Ratio 1.2 (1.0-2.8); Alkaline Phosphatase 75 U/L (38-126); Aspartate Aminotransferase 29 IU/L (17-59); BUN Creatinine Ratio 26.2 (6-22); Bilirubin Total 1.4 mg/dL (0.2-1.3); Blood Urea Nitrogen 33 mg/dL (9-20); Calcium 8.2 mg/dL (8.4-10.2); Carbon Dioxide 27 mmol/L (22-32); Chloride 103 mmol/L (98-107); Estimated Glomerular Filt Rate 58 mL/min (>60); Glucose 70 mg/dL (80-110); HEMOLYSIS < 15 (0-50); Sodium 137 mmol/L (137-145); Total Protein 6.7 g/dL (6.3-8.2)
[2022-06-13 22:06] LABS: Add Manual Diff / Slide Review YES
[2022-06-13 22:09] LABS: Neutrophils Absolute Manual 16356 /uL (3000-5900); RBC Morphology Normal Morphology; Total Cells Counted 100
[2022-06-13] MEDS: SODIUM CHLORIDE 0.9% 1,000 ML 1000 ML IV (22:47)
[2022-06-13] MEDS: PIPERACILLIN/TAZO 4.5 GM in SODIUM CHLORIDE 0.9% 100 ML IV (23:46)
[2022-06-14] VITALS (24 sets, daily range): BP systolic 103–144; BP diastolic 50–64; PULSE 57–69; RESP 16–25; O2SAT 95–100
[2022-06-14 01:26] LABS: NT-proBNP (BNP-Adult 18+) 1460 pg/mL (<450)
[2022-06-14 01:42] LABS: Hemoglobin A1C% w Est Avg Glu 6.5 % (4.0-6.0)
[2022-06-14] MEDS: SODIUM CHLORIDE 0.9% 1,000 ML 100 ML IV (02:21)
[2022-06-14] MEDS: HEPARIN 5,000 UNIT/ML VIAL 4000 UNIT IV (02:42)
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
[2022-06-14] MEDS: HEPARIN DRIP 25,000 UNIT/500 ML IV.SOLN 20 UNIT IV (02:53)
[2022-06-14 03:31] LABS: PTT Partial Thromboplastin Tim > 400 SECONDS (26-36)
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
[2022-06-14] MEDS: MAGNESIUM SULFATE 2 GM/50 ML PIGGYBACK IV (03:36)
[2022-06-14] MEDS: methocarbamoL 500 MG TABLET PO (04:51)
--- NOTE | 2022-06-14 06:21 | PC.NURSE ---
Attempting to call nurse at [facility] to give report, have called 4 times and continue to get a busy signal.
--- NOTE | 2022-06-14 06:42 | PC.NURSE ---
Breanna from [facility] called and report was given.
== END 2022-06-14 06:00 | disposition short-term general hospital (02) ==
LOC: ED 23:45 → AC 06-14 03:31
PROVIDERS: Emergency Medicine; Nurse Practitioner Family; Emergency Provider Registered Nurse; Family Provider Family Medicine; PCP Family Medicine
DX: K52.9 Noninfective gastroenteritis and colitis, unspecified (principal); I95.9 Hypotension, unspecified; R10.84 Generalized abdominal pain; R79.89 Other specified abnormal findings of blood chemistry; R07.9 Chest pain, unspecified; Z79.01 Long term (current) use of anticoagulants; Z20.822 Contact with and (suspected) exposure to COVID-19
CPT/HCPCS: 36415; 71045; 74177; 76705; 80053; 81003; 81015; 82550; 82553; 82962; 83036; 83605; 83690; 83735; 83880; 84484; 85007; 85025; 85610; 85730; 87040; 87086; 87635; 93005; 96365; 96366; 96367; 96375; 99285; C9803; J1644; J1815; J2543; J3475; Q9967

== ENCOUNTER → 2022-07-03 07:00 | Outpatient (CLI) | payer MEDICARE, OTHER, SELFPAY | PROVIDERS: Family Provider Family Medicine; PCP Family Medicine; Visit Provider Family Medicine | DX: Z01.812 Encounter for preprocedural laboratory examination (principal); Z20.822 Contact with and (suspected) exposure to COVID-19 | CPT/HCPCS: U0003 ==

== ENCOUNTER → 2022-09-15 11:45 | Outpatient (CLI) | payer MEDICARE, OTHER, SELFPAY ==
[2022-09-15 12:54] LABS: Add Manual Diff / Slide Review NO; Basophils Absolute Auto 0 /uL (0-100); Basophils Percent Auto 0.4 % (0-2); Eosinophils Absolute Auto 200 /uL (0-450); Eosinophils Percent Auto 2.5 % (2-4); Hematocrit 33.1 % (41-53); Hemoglobin 11.5 g/dL (13.5-17.5); Lymphocytes Absolute Auto 2400 /uL (1100-4500); Lymphocytes Percent Auto 27.1 % (25-40); Mean Corpuscular HGB Conc 34.7 % (30-36); Mean Corpuscular Volume 92.2 fL (80-100); Monocytes Absolute Auto 700 /uL (0-900); Monocytes Percent Auto 7.7 % (3-14); Neutrophils Absolute Auto 5400 /uL (1500-7000); Neutrophils Percent Auto 62.3 % (50-75); Platelet Count 136 X10^3/uL (150-400); Red Blood Cell Count 3.59 X10^6/uL (4.5-5.9); Red Cell Distribution Width 13.9 % (11.6-14.8); White Blood Cell Count 8.7 X10^3/uL (4.5-11.0)
[2022-09-15 13:12] LABS: BUN Creatinine Ratio 28.6 (6-22); Blood Urea Nitrogen 36 mg/dL (9-20); Calcium 8.7 mg/dL (8.4-10.2); Carbon Dioxide 22 mmol/L (22-32); Chloride 105 mmol/L (98-107); Estimated Glomerular Filt Rate 58 mL/min (>60); Glucose 219 mg/dL (80-110); HEMOLYSIS < 15 (0-50); Potassium 4.7 mmol/L (3.4-5.1); Sodium 139 mmol/L (137-145)
[2022-09-15 19:02] LABS: Creatinine Urine Random 207.4 mg/dL; Protein (Total) Urine Random 24 mg/dL (0-12); Protein Creatinine Ratio Urine 0.11 GRAM/24H
[2022-09-16 06:36] LABS: Parathyroid Hormone Int 101 pg/mL (15-65)
== END ==
PROVIDERS: Family Provider Family Medicine; PCP Family Medicine; Referring Provider Internal Medicine Interventional Cardiology; Visit Provider Internal Medicine Interventional Cardiology
DX: R80.9 Proteinuria, unspecified (principal); N05.9 Unspecified nephritic syndrome with unspecified morphologic changes; N25.81 Secondary hyperparathyroidism of renal origin; I35.0 Nonrheumatic aortic (valve) stenosis; Z95.2 Presence of prosthetic heart valve
CPT/HCPCS: 36415; 80048; 82570; 83970; 84156; 85025

== ENCOUNTER → 2023-02-15 11:03 | Outpatient (CLI) | payer MEDICARE, OTHER, SELFPAY ==
[2023-02-15 20:18] LABS: Alanine Aminotransferase 27 IU/L (<50); Albumin 4.2 g/dL (3.5-5.0); Albumin Globulin Ratio 1.4 (1.0-2.8); Alkaline Phosphatase 81 U/L (38-126); Aspartate Aminotransferase 26 IU/L (17-59); BUN Creatinine Ratio 30.3 (6-22); Bilirubin Total 1.4 mg/dL (0.2-1.3); Blood Urea Nitrogen 36 mg/dL (9-20); Calcium 8.9 mg/dL (8.4-10.2); Carbon Dioxide 23 mmol/L (22-32); Chloride 104 mmol/L (98-107); Estimated Glomerular Filt Rate > 60 mL/min (>60); Globulin 2.9 g/dL (1.7-4.1); Glucose 77 mg/dL (80-110); HEMOLYSIS < 15 (0-50); Lipase 123 U/L (23-300); Potassium 4.9 mmol/L (3.4-5.1); Sodium 139 mmol/L (137-145); Total Protein 7.1 g/dL (6.3-8.2)
[2023-02-15 20:20] LABS: Add Manual Diff / Slide Review NO; Basophils Absolute Auto 0 /uL (0-100); Basophils Percent Auto 0.2 % (0-2); Eosinophils Absolute Auto 100 /uL (0-450); Eosinophils Percent Auto 1.8 % (2-4); Hematocrit 34.2 % (41-53); Hemoglobin 11.9 g/dL (13.5-17.5); Lymphocytes Absolute Auto 1900 /uL (1100-4500); Lymphocytes Percent Auto 26.2 % (25-40); Mean Corpuscular HGB Conc 34.8 % (30-36); Monocytes Absolute Auto 600 /uL (0-900); Monocytes Percent Auto 8.1 % (3-14); Neutrophils Absolute Auto 4500 /uL (1500-7000); Neutrophils Percent Auto 63.7 % (50-75); Platelet Count 172 X10^3/uL (150-400); Red Blood Cell Count 3.71 X10^6/uL (4.5-5.9); Red Cell Distribution Width 13.4 % (11.6-14.8); White Blood Cell Count 7.1 X10^3/uL (4.5-11.0)
[2023-02-15 20:44] LABS: Prostate Specific Antigen Scrn 1.59 ng/mL (0.1-4.0)
[2023-02-16 21:07] LABS: x Labcorp Estim. Avg Glu (eAG) 148 mg/dL (.); x Labcorp Hemoglobin A1c 6.8 % (4.8-5.6)
== END ==
PROVIDERS: Family Provider Family Medicine; PCP Physician Assistant; Visit Provider Physician Assistant
DX: R10.9 Unspecified abdominal pain (principal); Z12.5 Encounter for screening for malignant neoplasm of prostate
CPT/HCPCS: 80053; 83036; 83690; 85025; G0103

== ENCOUNTER → 2023-04-17 13:02 | Outpatient (CLI) | payer MEDICARE, OTHER, SELFPAY ==
[2023-04-17 20:14] LABS: Add Manual Diff / Slide Review NO; Basophils Absolute Auto 0 /uL (0-100); Basophils Percent Auto 0.1 % (0-2); Eosinophils Absolute Auto 200 /uL (0-450); Eosinophils Percent Auto 2.1 % (2-4); Hematocrit 31.7 % (41-53); Lymphocytes Absolute Auto 2000 /uL (1100-4500); Lymphocytes Percent Auto 24.6 % (25-40); Mean Corpuscular HGB Conc 34.7 % (30-36); Mean Corpuscular Hemoglobin 32.3 PG (26-34); Mean Corpuscular Volume 92.8 fL (80-100); Monocytes Absolute Auto 600 /uL (0-900); Monocytes Percent Auto 7.5 % (3-14); Neutrophils Absolute Auto 5400 /uL (1500-7000); Neutrophils Percent Auto 65.7 % (50-75); Platelet Count 171 X10^3/uL (150-400); Red Blood Cell Count 3.42 X10^6/uL (4.5-5.9); Red Cell Distribution Width 13.8 % (11.6-14.8); White Blood Cell Count 8.2 X10^3/uL (4.5-11.0)
[2023-04-17 20:19] LABS: HEMOLYSIS < 15 (0-50); Iron 69 ug/dL (49-181)
[2023-04-17 20:20] LABS: BUN Creatinine Ratio 24.3 (6-22); Blood Urea Nitrogen 34 mg/dL (9-20); Calcium 8.7 mg/dL (8.4-10.2); Carbon Dioxide 22 mmol/L (22-32); Chloride 104 mmol/L (98-107); Estimated Glomerular Filt Rate 51 mL/min (>60); Glucose 139 mg/dL (80-110); HEMOLYSIS < 15 (0-50); Potassium 4.9 mmol/L (3.4-5.1); Sodium 137 mmol/L (137-145)
[2023-04-17 20:21] LABS: Appearance Urine UA CLEAR; Bilirubin Urine UA 1+ (NEGATIVE); Color Urine UA YELLOW; Glucose Urine UA NEGATIVE (Negative); Ketones Urine UA TRACE (NEGATIVE); Leukocyte Esterase Urine UA 1+ (NEGATIVE); Nitrite Urine UA NEGATIVE (Negative); Occult Blood Urine UA NEGATIVE (Negative); Protein Urine UA 1+ (Negative); Specific Gravity Urine UA >=1.030 (1.000-1.035); pH Urine UA 5.5 (4.5-8.0)
[2023-04-17 20:23] LABS: Amylase 86 U/L (30-110); Lipase 1594 U/L (23-300)
[2023-04-17 20:29] LABS: Percent Iron Saturation 25 % (20-50); Total Iron Binding Capacity 275 ug/dL (261-462); Transferrin 176 mg/dL (206-381)
[2023-04-17 20:31] LABS: Bacteria Urine None Seen; Calcium Oxalate Crystals Urine Few; Culture Indicated Urine Cult Not Indicated; Hyaline Casts Urine 10-30/LPF; RBC Urine 1-5/HPF (0-5/HPF); Squamous Epithelial Cell Urine 0-1 /HPF (0-5/HPF); WBC Urine 1-5/HPF (0-5/HPF)
[2023-04-17 20:33] LABS: Ictotest Urine Negative (Negative)
[2023-04-17 20:41] LABS: Creatinine Urine Random 254.2 mg/dL; Protein (Total) Urine Random 36 mg/dL (0-12); Protein Creatinine Ratio Urine 0.14 GRAM/24H
[2023-04-17 20:54] LABS: Ferritin 158 ng/mL (18-464)
[2023-04-20 07:19] LABS: Parathyroid Hormone Int 61 pg/mL (15-65)
== END ==
PROVIDERS: Family Provider Family Medicine; PCP Physician Assistant; Visit Provider Student in an Organized Health Care Education/Training Program
DX: D64.9 Anemia, unspecified (principal); I48.21 Permanent atrial fibrillation; N05.9 Unspecified nephritic syndrome with unspecified morphologic changes; N25.81 Secondary hyperparathyroidism of renal origin; R80.9 Proteinuria, unspecified; R10.9 Unspecified abdominal pain; R35.0 Frequency of micturition
CPT/HCPCS: 80048; 81001; 82150; 82570; 82728; 83540; 83550; 83690; 83970; 84156; 85025

== ENCOUNTER → 2023-05-03 13:58 | Outpatient (CLI) | payer MEDICARE, OTHER, SELFPAY ==
[2023-05-03 20:30] LABS: Lipase 277 U/L (23-300)
== END ==
PROVIDERS: Family Provider Family Medicine; PCP Physician Assistant; Visit Provider Physician Assistant
DX: R74.8 Abnormal levels of other serum enzymes (principal)
CPT/HCPCS: 83690

== ENCOUNTER → 2023-05-08 14:00 | Outpatient (CLI) | payer MEDICARE, OTHER, SELFPAY ==
[2023-06-01 15:10] LABS: Fecal Immunochemical Test Negative (Negative)
== END ==
PROVIDERS: Family Provider Family Medicine; PCP Physician Assistant; Referring Provider Physician Assistant; Visit Provider Physician Assistant
DX: D64.9 Anemia, unspecified (principal); R10.9 Unspecified abdominal pain
CPT/HCPCS: 82274

== ENCOUNTER → 2023-05-22 10:57 | Outpatient (CLI) | payer MEDICARE, OTHER, SELFPAY ==
[2023-05-22 20:30] LABS: Add Manual Diff / Slide Review NO; Basophils Absolute Auto 0 /uL (0-100); Basophils Percent Auto 0.4 % (0-2); Eosinophils Absolute Auto 200 /uL (0-450); Eosinophils Percent Auto 2.7 % (2-4); Hematocrit 32.8 % (41-53); Hemoglobin 11.3 g/dL (13.5-17.5); Lymphocytes Absolute Auto 1500 /uL (1100-4500); Lymphocytes Percent Auto 22.9 % (25-40); Mean Corpuscular HGB Conc 34.3 % (30-36); Mean Corpuscular Hemoglobin 32.3 PG (26-34); Mean Corpuscular Volume 94.1 fL (80-100); Monocytes Absolute Auto 600 /uL (0-900); Monocytes Percent Auto 9.2 % (3-14); Neutrophils Absolute Auto 4400 /uL (1500-7000); Neutrophils Percent Auto 64.8 % (50-75); Platelet Count 182 X10^3/uL (150-400); Red Blood Cell Count 3.49 X10^6/uL (4.5-5.9); Red Cell Distribution Width 13.9 % (11.6-14.8); White Blood Cell Count 6.8 X10^3/uL (4.5-11.0)
[2023-05-22 20:32] LABS: Alanine Aminotransferase 22 IU/L (<50); Albumin 4.1 g/dL (3.5-5.0); Albumin Globulin Ratio 1.3 (1.0-2.8); Alkaline Phosphatase 93 U/L (38-126); Aspartate Aminotransferase 27 IU/L (17-59); BUN Creatinine Ratio 27.1 (6-22); Bilirubin Total 0.9 mg/dL (0.2-1.3); Blood Urea Nitrogen 35 mg/dL (9-20); Carbon Dioxide 22 mmol/L (22-32); Chloride 102 mmol/L (98-107); Estimated Glomerular Filt Rate 56 mL/min (>60); Globulin 3.1 g/dL (1.7-4.1); Glucose 159 mg/dL (80-110); HEMOLYSIS < 15 (0-50); Lipase 242 U/L (23-300); Potassium 5.3 mmol/L (3.4-5.1); Sodium 139 mmol/L (137-145); Total Protein 7.2 g/dL (6.3-8.2)
== END ==
PROVIDERS: Family Provider Family Medicine; PCP Physician Assistant; Visit Provider Physician Assistant
DX: I48.21 Permanent atrial fibrillation (principal); R10.32 Left lower quadrant pain
CPT/HCPCS: 80053; 83690; 85025

== ENCOUNTER → 2023-05-30 13:55 | Outpatient (CLI) | payer MEDICARE, OTHER, SELFPAY ==
[2023-05-30 15:38] LABS: HEMOLYSIS < 15 (0-50); Potassium 4.9 mmol/L (3.4-5.1)
== END ==
PROVIDERS: Family Provider Family Medicine; PCP Physician Assistant; Referring Provider Student in an Organized Health Care Education/Training Program; Visit Provider Student in an Organized Health Care Education/Training Program
DX: E87.5 Hyperkalemia (principal)
CPT/HCPCS: 36415; 84132

== ENCOUNTER → 2023-06-18 12:16 | Outpatient (CLI) | payer MEDICARE, OTHER, SELFPAY ==
--- NOTE | 2023-06-18 12:17 | DI.RAD.S_ITS ---
PROCEDURE: XR LUMBAR SPINE MIN 4V INDICATIONS: BACK PAIN TECHNIQUE: 5 views of the lumbar spine were acquired, including bilateral oblique views. COMPARISON: [facility], , XR LUMBAR SPINE MIN 4V, 02/23/2021, 15:49. FINDINGS: Bones: 5 nonrib-bearing vertebrae are present. Straightening of normal lumbar lordosis. There is multilevel facet arthropathy, worse at L4-5 and L5-S1. Mild multilevel disc height loss with degenerative endplate changes and spurring is present. This is most pronounced at L2-L3 with severe disc height loss and degenerative endplate changes and L5-S1 with moderate to severe disc height loss. No vertebral body compression fractures. No suspicious bony lesions. Soft tissues: Overlying bowel gas pattern is normal. No suspicious soft tissue calcifications. Atherosclerotic vascular calcifications Oblique images: No . Definite pars defects. IMPRESSION: Multilevel degenerative changes of the lumbar spine, most pronounced at L2-L3 and L5-S1. Dictated by: Sebas Goncalves M.D. on 06/18/2023 at 13:17 Approved by: Sebas Goncalves M.D. on 06/18/2023 at 13:19
== END ==
PROVIDERS: Family Provider Family Medicine; PCP Physician Assistant; Referring Provider Physical Medicine & Rehabilitation; Visit Provider Physical Medicine & Rehabilitation
DX: M47.26 Other spondylosis with radiculopathy, lumbar region (principal); M47.27 Other spondylosis with radiculopathy, lumbosacral region; M48.061 Spinal stenosis, lumbar region without neurogenic claudication; M54.50 Low back pain, unspecified; G89.29 Other chronic pain; M53.3 Sacrococcygeal disorders, not elsewhere classified; I48.21 Permanent atrial fibrillation; R26.9 Unspecified abnormalities of gait and mobility; Z79.01 Long term (current) use of anticoagulants
CPT/HCPCS: 72110; 99214

== ENCOUNTER → 2023-06-20 14:33 | Outpatient (CLI) | payer MEDICARE, OTHER, SELFPAY ==
[2023-06-20 20:00] LABS: Add Manual Diff / Slide Review NO; Basophils Absolute Auto 0 /uL (0-100); Basophils Percent Auto 0.2 % (0-2); Eosinophils Absolute Auto 300 /uL (0-450); Eosinophils Percent Auto 4.2 % (2-4); Hematocrit 33.1 % (41-53); Hemoglobin 11.4 g/dL (13.5-17.5); Lymphocytes Absolute Auto 1600 /uL (1100-4500); Lymphocytes Percent Auto 23.3 % (25-40); Mean Corpuscular HGB Conc 34.5 % (30-36); Mean Corpuscular Hemoglobin 32.3 PG (26-34); Mean Corpuscular Volume 93.5 fL (80-100); Monocytes Absolute Auto 600 /uL (0-900); Monocytes Percent Auto 8.1 % (3-14); Neutrophils Absolute Auto 4400 /uL (1500-7000); Neutrophils Percent Auto 64.2 % (50-75); Platelet Count 180 X10^3/uL (150-400); Red Blood Cell Count 3.54 X10^6/uL (4.5-5.9); Red Cell Distribution Width 13.5 % (11.6-14.8); White Blood Cell Count 6.8 X10^3/uL (4.5-11.0)
[2023-06-20 20:08] LABS: BUN Creatinine Ratio 28.2 (6-22); Blood Urea Nitrogen 29 mg/dL (9-20); Calcium 8.9 mg/dL (8.4-10.2); Carbon Dioxide 25 mmol/L (22-32); Chloride 104 mmol/L (98-107); Estimated Glomerular Filt Rate > 60 mL/min (>60); Glucose 186 mg/dL (80-110); HEMOLYSIS < 15 (0-50); Potassium 4.8 mmol/L (3.4-5.1); Sodium 138 mmol/L (137-145)
== END ==
PROVIDERS: Family Provider Family Medicine; PCP Physician Assistant; Visit Provider Internal Medicine Interventional Cardiology
DX: I48.21 Permanent atrial fibrillation (principal); I35.0 Nonrheumatic aortic (valve) stenosis; Z95.2 Presence of prosthetic heart valve
CPT/HCPCS: 80048; 85025

== ENCOUNTER 2023-07-05 12:52 | Outpatient (CLI) | payer MEDICARE, OTHER, SELFPAY ==
[2023-07-05] VITALS (8 sets, daily range): BP systolic 139–189; BP diastolic 62–77; PULSE 59–79; RESP 14–20; TEMP 36.5; O2SAT 99–100
--- NOTE | 2023-07-05 12:54 | DI.RAD.S_ITS ---
PROCEDURE: PAIN SI JOINT INJECTION INDICATIONS: SACROILIAC DISORDER COMPARISON: [facility], , PAIN SI JOINT INJECTION, 06/09/2021, 14:50. FINDINGS: Fluoroscopic spot filming was performed to verify placement of spinal needles at the sacroiliac joint. Appropriate location(s) of the needle tip(s) was confirmed by injection of iodinated contrast. IMPRESSION: Fluoroscopic placement of spinal needle into the sacroiliac joint. Dictated by: Héctor Knutson M.D. on 07/06/2023 at 8:52 Approved by: Héctor Knutson M.D. on 07/06/2023 at 8:53
[2023-07-05] MEDS: MIDAZOLAM 2 MG/2 ML VIAL IV (14:03)
[2023-07-05] MEDS: IOPAMIDOL 15 ML VIAL 3 ML INJ (14:10)
[2023-07-05] MEDS: BUPIVACAINE 0.5% (PF) 10 ML VIAL 2 ML INJ (14:10)
[2023-07-05] MEDS: BETAMETHASONE 30 MG/5 ML MDV 12 MG INJ (14:10)
--- NOTE | 2023-07-05 14:22 | PM.PROC.IR.1 ---
Date/Time/Diagnoses Date of procedure: 07/05/23 Time of procedure: 14:22 Pre-procedure diagnosis: Sacroiliac joint pain/DJD Post-procedure diagnosis: same Procedure Notes Procedure: Fluoroscopically guided contrast controlled right sacroiliac joint injection Indications: Florin is referred by PAC Sheriff for treatment of right sacroiliac joint DJD Physician: Ollie Minaya Total Fluoroscopy time (seconds): 8 Total sedation minutes: 12 Complications: none Procedure in detail & Post-procedure care: DESCRIPTION OF PROCEDURE Fluoroscopically guided, contrast controlled right sacroiliac joint injection Following review of allergies and review of potential side effects and complications, including, but not necessarily limited to, infection, allergic reaction, local tissue breakdown, temporary as well as permanent nerve injury, paralysis, stroke and possible , the patient indicated that they understood and agreed to proceed. An informed consent was signed by the patient, witnessed by a nurse, and placed in the patient's chart. Additionally, other treatment options including modalities, medications, and physical therapy were reviewed with the patient. After review of previous anaesthesic history and IV conscious sedation the patient was deemed safe to proceed with today?s procedure with IV conscious sedation as ASA class II designation. Safety time-out was performed to confirm patient ID, procedure to be performed and site of procedure. IV sedation was accomplished with a combination of 2mg of Versed was administered by the RN after DO order, titrated to patient comfort during the course of the procedure while the patient remained responsive to all verbal commands In the prone position following sterile prep and drape of the pelvic region, the hyper lucency on in the inferior aspect of the sacroiliac joint was identified fluoroscopically the skin was anesthetized be a 25 gauge 1 eventual with approximately 2 cc of 1% lidocaine solution. At this point, a 22 gauge 3 in spinal needle was atraumatically introduced and advanced under fluoroscopic guidance into the inferior aspect of the right sacroiliac joint. Following negative aspiration, approximately 0.3cc of Isovue-300 was injected confirming intra-articular placement without vascular uptake. Radiographic data, including multiple fluoroscopic views of the pelvis, reveals a spinal needle in the sacroiliac joint hyper lucent zone. Subsequent view show flow contrast tear superiorly and inferiorly within the joint capsule without vascular intrathecal uptake. At this point a total of 1cc of 0.5% Marcaine was combined with 1cc of 6 mg of betamethasone was injected without incident. The procedure tolerated the procedure well without signs or symptoms of complications prior to transfer to the recovery area continued monitoring without incident. The patient was then transferred to the recovery area with a bur observed for an appropriate time after the injection. The patient reverted a vas score of 7 prior to the procedure and post-procedure vas of 1. POSTOP INSTRUCTIONS The patient was provided with a pain like to continue to record the patient's response to the target specific procedure prior to the patient's follow-up visit with the referring physician. Additionally, specific post injection care instructions and a contact number to our office were provided if concerns arise regarding the possible complications associated with procedure are suspected.
== END 2023-07-05 14:38 | disposition home or self-care (01) ==
LOC: RAD 12:54
PROVIDERS: Family Provider Family Medicine; PCP Physician Assistant; Referring Provider Physical Medicine & Rehabilitation; Visit Provider Physical Medicine & Rehabilitation
DX: M53.3 Sacrococcygeal disorders, not elsewhere classified (principal); M46.1 Sacroiliitis, not elsewhere classified
CPT/HCPCS: 27096; 77002; 99152; J0702; J2250

== ENCOUNTER → 2023-07-18 11:09 | Outpatient (CLI) | payer MEDICARE, OTHER, SELFPAY ==
[2023-07-18 20:32] LABS: Hemoglobin A1C% w Est Avg Glu 6.6 % (4.0-6.0)
[2023-07-18 20:38] LABS: Alanine Aminotransferase 25 IU/L (<50); Albumin Globulin Ratio 1.3 (1.0-2.8); Alkaline Phosphatase 78 U/L (38-126); Aspartate Aminotransferase 25 IU/L (17-59); BUN Creatinine Ratio 32.8 (6-22); Bilirubin Total 0.7 mg/dL (0.2-1.3); Blood Urea Nitrogen 39 mg/dL (9-20); Calcium 9.4 mg/dL (8.4-10.2); Carbon Dioxide 24 mmol/L (22-32); Chloride 104 mmol/L (98-107); Cholesterol 90 mg/dL (140-199); Estimated Glomerular Filt Rate > 60 mL/min (>60); Glucose 64 mg/dL (80-110); HDL Cholesterol 42 mg/dL (40-60); HEMOLYSIS < 15 (0-50); LDL Cholesterol Calculated 29 mg/dL (<100); Potassium 4.7 mmol/L (3.4-5.1); Sodium 140 mmol/L (137-145); Triglycerides 97 mg/dL (35-150)
[2023-07-18 21:14] LABS: Creatinine Urine Random 111.8 mg/dL
[2023-07-18 21:21] LABS: Microalbumin Urine Random 11.3 mg/dL (0-1.6)
== END ==
PROVIDERS: Family Provider Family Medicine; PCP Physician Assistant; Visit Provider Physician Assistant
DX: E11.49 Type 2 diabetes mellitus with other diabetic neurological complication (principal); N18.31 Chronic kidney disease, stage 3a; E11.42 Type 2 diabetes mellitus with diabetic polyneuropathy; Z79.4 Long term (current) use of insulin
CPT/HCPCS: 80053; 80061; 82043; 82570; 83036

== ENCOUNTER 2023-11-01 10:03 | Outpatient (CLI) | payer MEDICARE, OTHER, SELFPAY ==
[2023-11-01] VITALS (9 sets, daily range): BP systolic 105–200; BP diastolic 53–85; PULSE 57–69; RESP 13–21; TEMP 36.3; O2SAT 98–100
--- NOTE | 2023-11-01 10:15 | DI.RAD.S_ITS ---
PROCEDURE: PAIN L INTERLAMINAR/CAUDAL INJ INDICATIONS: SPINAL STENOSIS COMPARISON: None. FINDINGS: 5 Fluoroscopic spot filming was performed to verify placement of spinal needles at the L5-S1 level(s), as labeled on the films. Appropriate location(s) of the needle tip(s) was confirmed by injection of iodinated contrast. IMPRESSION: Intraoperative guidance provided. Dictated by: Wenceslao Law M.D. on 11/01/2023 at 15:38 Approved by: Wenceslao Law M.D. on 11/01/2023 at 15:39
[2023-11-01] MEDS: MIDAZOLAM 2 MG/2 ML VIAL IV (10:50)
[2023-11-01] MEDS: iopamidoL 15 ML VIAL 3 ML INJ (10:54)
[2023-11-01] MEDS: DEXAMETHASONE 10 MG/ML VIAL INJ (10:55)
[2023-11-01] MEDS: BUPIVACAINE 0.25% (PF) VIAL 2 ML INJ (10:55)
[2023-11-01] MEDS: BETAMETHASONE 30 MG/5 ML MDV 6 MG INJ (10:56)
[2023-11-01] MEDS: DEXAMETHASONE 10 MG/ML VIAL IV (10:56)
--- NOTE | 2023-11-01 11:08 | P.PCN_ITS ---
Date/Time/Diagnoses Date of procedure: 11/01/23 Time of procedure: 11:08 Pre-procedure diagnosis: 1. HNP WITH RADICULAR FEATURES, 2. MULTILEVEL CENTRAL STENOSIS, Post-procedure diagnosis: same Procedure Notes Procedure: 1. FLUOROSCOPICALLY GUIDED CONTRAST CONTROLLED INTERLAMINAR EPIDURAL STEROID INJECTION - L5/S1 Indications: Ollie is referred by PAC Sheriff for treatment of Bilateral Foraminal Stenosis L>R LE symptoms. Physician: Ollie Minaya Total Fluoroscopy time (seconds): 7 Total sedation minutes: 11 Complications: none Procedure in detail & Post-procedure care: FINDINGS Multilevel Central Spinal Stenosis with Nerve Root Compression DESCRIPTION OF PROCEDURE Fluoroscopically guided, contrast-controlled L5/S1 translaminar epidural steroid injection. Following review of allergy and review of potential side effects and complications, including, but not necessarily limited to, infection, allergic reaction, local tissue breakdown, temporary as well as permanent nerve injury, paralysis, stroke and possible , the patient indicated that the patient understood and agreed to proceed. An informed consent document was signed by the patient, witnessed by a nurse, and placed in the patient's chart. Additionally, other treatment options including modalities, medications, and physical therapy were reviewed with the patient. After review of previous anaesthesic history and IV conscious sedation the patient was deemed safe to proceed with today?s procedure with IV conscious sedation as ASA class II designation. Safety time-out was performed to confirm patient ID, procedure to be performed and site of procedure. IV sedation was accomplished with a combination of 2mg of Versed administered by the RN after DO order, titrated to patient comfort during the course of the procedure while the patient remained responsive to all verbal commands. In the prone position, following sterile prep and drape of the lumbar region, the L5/S1 translaminar space was identified fluoroscopically. The skin was anesthetized via a 25-gauge, 1.5-inch needle with 1% lidocaine solution. At this point, a 22-gauge short bevel spinal needle was atraumatically introduced a nd advanced under fluoroscopic guidance into the region of the L5/S1 translaminar space. Depth was confirmed on lateral view. Radiological data, including multiple fluoroscopic views of the lumbar spine, reveal a spinal needle at the L5/S1 translaminar space. Lateral views then show placement of the needle in the epidural space. Subsequent views show contrast material flowing superiorly and inferiorly in the epidural space. No vascular or intrathecal uptake is observed. At this point, using loss of resistance technique with saline and air, the epidural space was entered. This was confirmed following negative aspiration with injection of approximately 1.5cc of Isovue 200, showing excellent epidural flow without vascular or intrathecal uptake. At this point, 1cc of 1% lidocaine solution combined with 2cc or 10mg of dexamethasone and 6mg of betamethasone was injected without incident. The patent tolerated the procedure without signs of symptoms of complications prior to transfer to the recovery area for further monitoring. The patient was then transferred to the recovery area where they were observed for an appropriate period of time after the injection. The patient reported a VAS score of 7 prior to the procedure and a post-procedure VAS of 0. POST OP INSTRUCTIONS The patient was provided a Pain Log to continue to record their response to the target-specific procedure prior to follow-up visit with their referring physician. Additionally, specific post-injection care instructions and a contact number to our office were provided if concerns arise regarding possible complications associated with the procedure are suspected.
== END 2023-11-01 11:45 | disposition home or self-care (01) ==
LOC: RAD 10:04
PROVIDERS: Family Provider Family Medicine; PCP Physician Assistant; Referring Provider Physical Medicine & Rehabilitation; Visit Provider Physical Medicine & Rehabilitation
DX: M51.17 Intervertebral disc disorders with radiculopathy, lumbosacral region (principal); M48.07 Spinal stenosis, lumbosacral region
CPT/HCPCS: 62323; 99152; J0702; J1100; J2250; J3490

== ENCOUNTER → 2023-12-11 12:51 | Outpatient (CLI) | payer MEDICARE, OTHER, SELFPAY ==
[2023-12-11 21:14] LABS: Creatinine Urine Random 159.6 mg/dL
[2023-12-11 21:35] LABS: Microalbumi Creatinin Ratio Ur 208.6 ug/mg CR (<30); Microalbumin Urine Random 33.3 mg/dL (0-1.6)
== END ==
PROVIDERS: Family Provider Family Medicine; PCP Physician Assistant; Visit Provider Physician Assistant
DX: E11.42 Type 2 diabetes mellitus with diabetic polyneuropathy (principal); Z79.4 Long term (current) use of insulin
CPT/HCPCS: 82043; 82570

== ENCOUNTER → 2024-01-07 11:09 | Outpatient (CLI) | payer MEDICARE, OTHER, SELFPAY ==
[2024-01-07 19:35] LABS: Hematocrit 33.1 % (41-53); Hemoglobin 11.3 g/dL (13.5-17.5)
[2024-01-07 19:40] LABS: BUN Creatinine Ratio 26.2 (6-22); Blood Urea Nitrogen 28 mg/dL (9-20); Calcium 8.9 mg/dL (8.4-10.2); Carbon Dioxide 27 mmol/L (22-32); Chloride 108 mmol/L (98-107); Estimated Glomerular Filt Rate > 60 mL/min (>60); Glucose 126 mg/dL (80-110); HEMOLYSIS < 15 (0-50); Potassium 4.5 mmol/L (3.4-5.1); Sodium 141 mmol/L (137-145)
[2024-01-07 20:12] LABS: Protein (Total) Urine Random 50 mg/dL (0-12); Protein Creatinine Ratio Urine 0.54 GRAM/24H
[2024-01-10 12:52] LABS: Parathyroid Hormone Int 55 pg/mL (15-65)
== END ==
PROVIDERS: Family Provider Family Medicine; PCP Physician Assistant; Visit Provider Student in an Organized Health Care Education/Training Program
DX: N05.9 Unspecified nephritic syndrome with unspecified morphologic changes (principal); R80.9 Proteinuria, unspecified; N25.81 Secondary hyperparathyroidism of renal origin; D70.9 Neutropenia, unspecified; D63.1 Anemia in chronic kidney disease
CPT/HCPCS: 80048; 82570; 83970; 84156; 85014; 85018

== ENCOUNTER → 2024-03-12 16:16 | Outpatient (CLI) | payer MEDICARE, OTHER, SELFPAY ==
--- NOTE | 2024-03-12 16:18 | DI.MRI.S_ITS ---
PROCEDURE: MR LUMBAR SPINE WO CON INDICATIONS: Other spondylosis with radiculopathy, lumbosacral TECHNIQUE: Noncontrast sagittal T1 spin echo and T2 fast echo, sagittal STIR, and T2 fast spin echo through the lumbar spine. In cases with scoliosis, additional coronal T2 fast spin echo may be performed. COMPARISON: [facility], MR, MR LUMBAR SPINE WO CON, 04/14/2021, 12:55. FINDINGS: Image quality: Excellent. Alignment and Curvature: There is normal bony alignment. Bone Marrow: Marrow is of normal overall signal. No acute vertebral body compression fractures. Spinal Cord: Conus medullaris terminates at the L1-L2 level. Visualized cord demonstrates normal signal and size. Paraspinous Soft Tissues: No paravertebral masses. T11-T12: No canal stenosis or foraminal stenosis. T12-L1: No canal stenosis or foraminal stenosis. L1-L2: Unchanged. Mild facet hypertrophy. Minimal disc bulge. No canal stenosis or foraminal stenosis. L2-L3: Interval increase in disc height loss. Again noted is diffuse disc bulge. Superimposed right paracentral and posterior lateral disc protrusion has diminished. Moderate canal stenosis is stable. No significant change, [id number] right foraminal narrowing and mild left foraminal narrowing. Facet hypertrophy. Epidural lipomatosis. L3-L4: Progression of findings. Slight interval increase in disc height loss. Diffuse disc bulge. Facet and ligament hypertrophy. Canal stenosis is still in the moderate to severe category, but is increased. Reference previous image 20 of axial series 5 and current image 23 of axial series 5. There is moderate right foraminal narrowing and moderate to severe left foraminal narrowing. There is a mild degree of left foraminal L3 nerve root impingement. L4-L5: Progression of findings. Disc bulge. Facet hypertrophy. Epidural lipomatosis. Moderate canal stenosis. Reference previous image 25 of series 5 and current image 28 of series 5. Mild left foraminal stenosis. L5-S1: Again noted is disc bulge with superimposed right posterior lateral and far lateral disc protrusion. Facet hypertrophy. Borderline central canal stenosis. Moderate right foraminal narrowing and mild to moderate left foraminal narrowing. IMPRESSION: 1. Diffuse degenerative change with multilevel underlying facet arthropathy. 2. Progression of disc height loss at L2-L3 and L3-L4. 3. Progression of canal stenosis at L3-L4 and L4-L5. 4. Canal stenosis is moderate at L2-L3, moderate to severe at L3-L4, moderate at L4-L5, and borderline at L5-S1. 5. Multilevel foraminal narrowing as described above. Findings include moderate to severe left foraminal narrowing at L3-L4. Dictated by: Keo Morgan M.D. on 03/13/2024 at 8:40 Approved by: Keo Morgan M.D. on 03/13/2024 at 8:51
== END ==
PROVIDERS: Family Provider Family Medicine; PCP Physician Assistant; Referring Provider Neurological Surgery; Visit Provider Neurological Surgery
DX: M47.27 Other spondylosis with radiculopathy, lumbosacral region (principal); M47.26 Other spondylosis with radiculopathy, lumbar region; M48.061 Spinal stenosis, lumbar region without neurogenic claudication; M48.07 Spinal stenosis, lumbosacral region
CPT/HCPCS: 72148

== ENCOUNTER → 2024-03-25 14:38 | Outpatient (CLI) | payer MEDICARE, OTHER, SELFPAY ==
[2024-03-25 20:46] LABS: BUN Creatinine Ratio 26.6 (6-22); Blood Urea Nitrogen 33 mg/dL (9-20); Calcium 9.2 mg/dL (8.4-10.2); Carbon Dioxide 27 mmol/L (22-32); Chloride 104 mmol/L (98-107); Estimated Glomerular Filt Rate 58 mL/min (>60); Glucose 167 mg/dL (80-110); HEMOLYSIS 17 (0-50); Potassium 4.8 mmol/L (3.4-5.1); Sodium 137 mmol/L (137-145)
[2024-03-25 21:29] LABS: Creatinine Urine Random 161.47 mg/dL; Protein (Total) Urine Random 85 mg/dL (0-12); Protein Creatinine Ratio Urine 0.52 GRAM/24H
== END ==
PROVIDERS: Family Provider Family Medicine; PCP Physician Assistant; Visit Provider Student in an Organized Health Care Education/Training Program
DX: N05.9 Unspecified nephritic syndrome with unspecified morphologic changes (principal); R80.9 Proteinuria, unspecified
CPT/HCPCS: 80048; 82570; 84156

== ENCOUNTER → 2024-04-18 13:51 | Outpatient (CLI) | payer MEDICARE, OTHER, SELFPAY ==
--- NOTE | 2024-04-18 13:53 | DI.US.S_ITS ---
PROCEDURE: US ABDOMEN COMPLETE INDICATIONS: PAIN TECHNIQUE: Real-time scanning was performed of the abdominal and retroperitoneal organs, with image documentation. COMPARISON: [facility], , US ABDOMEN LIMITED, 06/13/2022, 16:14. FINDINGS: Liver: Liver size at the upper limits of normal. Normal echotexture. No dominant mass. Gallbladder: Partially contracted gallbladder with normal wall thickness at 2.2 mm. There are two calculi in the gallbladder, one of the neck measuring 5 mm which is not mobile with change in patient position. No pericholecystic fluid or sonographic Amaya sign. Biliary ducts: Intrahepatic bile ducts are non-dilated. Extrahepatic bile duct caliber measures six mm. Normal is 6-7 mm or less in diameter, or 10 mm or less post-cholecystectomy. Pancreas: Visualized portions of the pancreas are sonographically normal. Spleen: Spleen is normal in size and homogeneous in echotexture. Kidneys: Kidneys are normal in size and echotexture. Right kidney measures 10.9 cm long; left kidney measures 12.7 cm long. No hydronephrosis or nephrolithiasis. No solid masses. Aorta: Visualized aorta is normal in caliber at less than 3 cm. Iliacs: Proximal common iliac arteries are normal in caliber at less than 2.5 cm. IVC: Intrahepatic inferior vena cava is patent. Miscellaneous: No free abdominal fluid. IMPRESSION: Cholelithiasis without sonographic findings of acute cholecystitis. Dictated by: Audrey Monroe M.D. on 04/18/2024 at 16:45 Approved by: Audrey Monroe M.D. on 04/18/2024 at 16:47
[2024-04-18 14:43] LABS: Add Manual Diff / Slide Review NO; Basophils Absolute Auto 0 /uL (0-100); Basophils Percent Auto 0.3 % (0-2); Eosinophils Absolute Auto 200 /uL (0-450); Eosinophils Percent Auto 3.3 % (2-4); Hematocrit 32.5 % (41-53); Hemoglobin 11.2 g/dL (13.5-17.5); Lymphocytes Absolute Auto 1500 /uL (1100-4500); Lymphocytes Percent Auto 23.7 % (25-40); Mean Corpuscular HGB Conc 34.3 % (30-36); Mean Corpuscular Hemoglobin 32.1 PG (26-34); Mean Corpuscular Volume 93.5 fL (80-100); Monocytes Absolute Auto 600 /uL (0-900); Monocytes Percent Auto 9.1 % (3-14); Neutrophils Absolute Auto 4000 /uL (1500-7000); Neutrophils Percent Auto 63.6 % (50-75); Platelet Count 159 X10^3/uL (150-400); Red Blood Cell Count 3.48 X10^6/uL (4.5-5.9); Red Cell Distribution Width 13.6 % (11.6-14.8); White Blood Cell Count 6.3 X10^3/uL (4.5-11.0)
== END ==
PROVIDERS: Physician Assistant Medical; Family Provider Family Medicine; PCP Physician Assistant; Referring Provider Physician Assistant; Visit Provider Physician Assistant
DX: N18.9 Chronic kidney disease, unspecified (principal); K80.20 Calculus of gallbladder without cholecystitis without obstruction; R10.9 Unspecified abdominal pain; R14.0 Abdominal distension (gaseous); R10.2 Pelvic and perineal pain
CPT/HCPCS: 36415; 76700; 85025

== ENCOUNTER → 2024-05-01 14:23 | Outpatient (CLI) | payer MEDICARE, OTHER, SELFPAY ==
[2024-05-01 21:47] LABS: Reticulocyte Count, Percent 1.5 % (0.9-2.6)
[2024-05-01 21:50] LABS: Add Manual Diff / Slide Review NO; Basophils Absolute Auto 0 /uL (0-100); Basophils Percent Auto 0.2 % (0-2); Eosinophils Absolute Auto 200 /uL (0-450); Eosinophils Percent Auto 2.4 % (2-4); Hematocrit 31.5 % (41-53); Hemoglobin 10.7 g/dL (13.5-17.5); Lymphocytes Absolute Auto 2000 /uL (1100-4500); Lymphocytes Percent Auto 25.7 % (25-40); Mean Corpuscular HGB Conc 33.9 % (30-36); Mean Corpuscular Hemoglobin 31.8 PG (26-34); Monocytes Absolute Auto 600 /uL (0-900); Monocytes Percent Auto 8.2 % (3-14); Neutrophils Absolute Auto 4900 /uL (1500-7000); Neutrophils Percent Auto 63.5 % (50-75); Platelet Count 174 X10^3/uL (150-400); Red Blood Cell Count 3.36 X10^6/uL (4.5-5.9); Red Cell Distribution Width 13.9 % (11.6-14.8); White Blood Cell Count 7.7 X10^3/uL (4.5-11.0)
[2024-05-02 04:38] LABS: Alanine Aminotransferase 32 IU/L (<50); Albumin 4.2 g/dL (3.5-5.0); Albumin Globulin Ratio 1.3 (1.0-2.8); Alkaline Phosphatase 91 U/L (38-126); Aspartate Aminotransferase 67 IU/L (17-59); BUN Creatinine Ratio 31.4 (6-22); Bilirubin Total 0.8 mg/dL (0.2-1.3); Blood Urea Nitrogen 49 mg/dL (9-20); Calcium 9.1 mg/dL (8.4-10.2); Carbon Dioxide 21 mmol/L (22-32); Chloride 108 mmol/L (98-107); Estimated Glomerular Filt Rate 44 mL/min (>60); Globulin 3.2 g/dL (1.7-4.1); Glucose 174 mg/dL (80-110); HEMOLYSIS < 15 (0-50); Sodium 137 mmol/L (137-145); Total Protein 7.4 g/dL (6.3-8.2)
[2024-05-02 05:12] LABS: Potassium 5.5 mmol/L (3.4-5.1)
[2024-05-02 05:54] LABS: Ferritin 74 ng/mL (18-464)
[2024-05-02 05:59] LABS: HEMOLYSIS < 15 (0-50); TSH w/ Reflex to FT4 3.34 uIU/mL (0.47-4.68)
[2024-05-02 06:30] LABS: Folate 7.9 ng/mL (2.76-20.0); Vitamin B12 284 pg/mL (239-931)
[2024-05-03 03:41] LABS: Haptoglobin 127 mg/dL (38-329)
== END ==
PROVIDERS: Family Provider Family Medicine; PCP Physician Assistant; Visit Provider Family Medicine
DX: D64.9 Anemia, unspecified (principal); E11.9 Type 2 diabetes mellitus without complications; K80.20 Calculus of gallbladder without cholecystitis without obstruction; R10.9 Unspecified abdominal pain; Z87.442 Personal history of urinary calculi
CPT/HCPCS: 80053; 82607; 82728; 82746; 83010; 83036; 83540; 83550; 84443; 85025; 85045

== ENCOUNTER → 2024-05-05 14:35 | Outpatient (CLI) | payer MEDICARE, OTHER, SELFPAY ==
--- NOTE | 2024-05-05 14:36 | DI.CT.S_ITS ---
PROCEDURE: CT ABDOMEN PELVIS W CON INDICATIONS: mid/lower abd pain, + anemia,not consistent with gall stones TECHNIQUE: After the administration of intravenous contrast, axial sections acquired from the lung bases to the pubic symphysis. Coronal and sagittal reformats were performed. For radiation dose reduction, the following was used: automated exposure control, adjustment of mA and/or kV according to patient size. COMPARISON: [facility], CT, CT ABDOMEN PELVIS W CON, 06/13/2022, 20:12. FINDINGS: Image quality: Diagnostic. Lower Chest: Coronary artery calcifications/stents. Aortic valve prosthesis. ABDOMEN: Liver: No solid mass. Gallbladder: Contracted. No radiopaque gallstones or wall thickening. Biliary ducts: No biliary dilation. Pancreas: No ductal dilation. Spleen: Size is within normal limits. Adrenal Glands: No adrenal nodules. Kidneys and Ureters: Nonobstructive punctate inferior left renal calculus. No hydronephrosis. No solid mass. No complex renal cystic lesion which requires follow up. Stomach and Bowel: Normal colonic caliber, without significant wall thickening. Redemonstration of duodenum diverticulum. Normal caliber appendix. Peritoneum: No abnormal intraperitoneal fluid. No free air. Ventral Wall: No significant ventral hernia. Abdominal Nodes: No retroperitoneal or mesenteric adenopathy by size criteria. Vessels: Aorta and inferior vena cava are normal in size. PELVIS: Pelvic Organs: Prostatomegaly. Bladder: No bladder wall thickening, accounting for underdistention. Pelvic Nodes: No enlarged lymph nodes. Miscellaneous: No inguinal hernias are seen. Bones: No aggressive osseous abnormality. Multilevel degenerative changes without acute vertebral body compression fracture. IMPRESSION: Non-obstructing left inferior pole punctate calculi. No hydronephrosis. Prostatomegaly Approved by: Leisa Dooley M.D.,Ph.D. on 05/05/2024 at 21:35
== END ==
PROVIDERS: Family Provider Family Medicine; PCP Physician Assistant; Referring Provider Family Medicine; Visit Provider Family Medicine
DX: N20.0 Calculus of kidney (principal); N40.0 Benign prostatic hyperplasia without lower urinary tract symptoms; R10.9 Unspecified abdominal pain; I25.10 Atherosclerotic heart disease of native coronary artery without angina pectoris; Z95.5 Presence of coronary angioplasty implant and graft; Z95.2 Presence of prosthetic heart valve
CPT/HCPCS: 74177; Q9967

== ENCOUNTER → 2024-05-13 14:40 | Outpatient (CLI) | payer MEDICARE, OTHER, SELFPAY ==
[2024-05-13 20:31] LABS: BUN Creatinine Ratio 27.4 (6-22); Blood Urea Nitrogen 34 mg/dL (9-20); Calcium 8.5 mg/dL (8.4-10.2); Carbon Dioxide 20 mmol/L (22-32); Chloride 106 mmol/L (98-107); Estimated Glomerular Filt Rate 58 mL/min (>60); Glucose 219 mg/dL (80-110); HEMOLYSIS < 15 (0-50); Potassium 4.7 mmol/L (3.4-5.1); Sodium 137 mmol/L (137-145)
== END ==
PROVIDERS: Family Provider Family Medicine; PCP Physician Assistant; Visit Provider Student in an Organized Health Care Education/Training Program
DX: N05.9 Unspecified nephritic syndrome with unspecified morphologic changes (principal)
CPT/HCPCS: 80048

== ENCOUNTER → 2024-05-14 10:51 | Outpatient (CLI) | payer MEDICARE, OTHER, SELFPAY ==
[2024-05-14 12:35] LABS: Cholesterol 91 mg/dL (140-199); HDL Cholesterol 42 mg/dL (40-60); LDL Cholesterol Calculated 25 mg/dL (<100); Triglycerides 120 mg/dL (35-150)
== END ==
LOC: LAB 10:52
PROVIDERS: Family Provider Family Medicine; PCP Physician Assistant; Referring Provider Physician Assistant; Visit Provider Physician Assistant
DX: E11.42 Type 2 diabetes mellitus with diabetic polyneuropathy (principal); Z79.4 Long term (current) use of insulin; E78.2 Mixed hyperlipidemia
CPT/HCPCS: 36415; 80061

== ENCOUNTER → 2024-06-18 14:41 | Outpatient (CLI) | payer MEDICARE, OTHER, SELFPAY ==
[2024-06-18 20:40] LABS: Hematocrit 34.7 % (41-53); Hemoglobin 11.9 g/dL (13.5-17.5)
[2024-06-18 20:48] LABS: BUN Creatinine Ratio 30.4 (6-22); Blood Urea Nitrogen 38 mg/dL (9-20); Calcium 9.2 mg/dL (8.4-10.2); Carbon Dioxide 25 mmol/L (22-32); Chloride 103 mmol/L (98-107); Estimated Glomerular Filt Rate 58 mL/min (>60); Glucose 99 mg/dL (80-110); HEMOLYSIS 25 (0-50); Potassium 4.8 mmol/L (3.4-5.1); Sodium 139 mmol/L (137-145)
[2024-06-19 02:00] LABS: Hemoglobin A1C% w Est Avg Glu 6.7 % (4.0-6.0)
== END ==
PROVIDERS: Student in an Organized Health Care Education/Training Program; Family Provider Family Medicine; PCP Physician Assistant; Visit Provider Physician Assistant
DX: E11.9 Type 2 diabetes mellitus without complications (principal); N05.9 Unspecified nephritic syndrome with unspecified morphologic changes; D70.9 Neutropenia, unspecified; D63.1 Anemia in chronic kidney disease; N25.81 Secondary hyperparathyroidism of renal origin; R80.9 Proteinuria, unspecified
CPT/HCPCS: 80048; 83036; 83970; 85014; 85018

== ENCOUNTER → 2024-06-24 10:31 | Outpatient (CLI) | payer MEDICARE, OTHER, SELFPAY ==
[2024-06-24 20:56] LABS: Creatinine Urine Random 158.08 mg/dL; Protein (Total) Urine Random 56 mg/dL (0-12); Protein Creatinine Ratio Urine 0.35 GRAM/24H
== END ==
PROVIDERS: Family Provider Family Medicine; PCP Physician Assistant; Visit Provider Student in an Organized Health Care Education/Training Program
DX: R80.9 Proteinuria, unspecified (principal)
CPT/HCPCS: 82570; 84156

== ENCOUNTER → 2024-08-12 13:36 | Outpatient (CLI) | payer MEDICARE, OTHER, SELFPAY ==
[2024-08-12 19:10] LABS: BUN Creatinine Ratio 28.1 (6-22); Blood Urea Nitrogen 34 mg/dL (9-20); Calcium 9.5 mg/dL (8.4-10.2); Carbon Dioxide 23 mmol/L (22-32); Chloride 104 mmol/L (98-107); Estimated Glomerular Filt Rate > 60 mL/min (>60); Glucose 205 mg/dL (80-110); HEMOLYSIS 18 (0-50); Potassium 4.7 mmol/L (3.4-5.1); Sodium 136 mmol/L (137-145)
[2024-08-12 19:41] LABS: Creatinine Urine Random 157.96 mg/dL; Protein (Total) Urine Random 88 mg/dL (0-12); Protein Creatinine Ratio Urine 0.55 GRAM/24H
[2024-08-14 09:12] LABS: Parathyroid Hormone Int 32 pg/mL (15-65)
== END ==
PROVIDERS: Family Provider Family Medicine; PCP Physician Assistant; Visit Provider Student in an Organized Health Care Education/Training Program
DX: N05.9 Unspecified nephritic syndrome with unspecified morphologic changes (principal); D70.9 Neutropenia, unspecified; D63.1 Anemia in chronic kidney disease; N25.81 Secondary hyperparathyroidism of renal origin; R80.9 Proteinuria, unspecified
CPT/HCPCS: 80048; 82570; 83970; 84156; 85014; 85018

== ENCOUNTER → 2024-11-04 13:38 | Outpatient (CLI) | payer MEDICARE, OTHER, SELFPAY ==
[2024-11-04 19:32] LABS: Hemoglobin 10.4 g/dL (13.5-17.5)
[2024-11-04 19:49] LABS: Triglycerides 237 mg/dL (35-150)
[2024-11-04 19:53] LABS: Cholesterol 94 mg/dL (140-199); HDL Cholesterol 42 mg/dL (40-60); LDL Cholesterol Calculated 5 mg/dL (<100)
[2024-11-04 19:59] LABS: Hemoglobin A1C% w Est Avg Glu 6.8 % (4.0-6.0)
[2024-11-04 20:42] LABS: Vitamin B12 680 pg/mL (239-931)
== END ==
PROVIDERS: Family Provider Family Medicine; PCP Physician Assistant; Visit Provider Physician Assistant
DX: E11.9 Type 2 diabetes mellitus without complications (principal); E78.2 Mixed hyperlipidemia; D63.8 Anemia in other chronic diseases classified elsewhere; E53.8 Deficiency of other specified B group vitamins
CPT/HCPCS: 80061; 82607; 83036; 85014; 85018

== ENCOUNTER → 2024-12-26 12:12 | Outpatient (CLI) | payer MEDICARE, OTHER, SELFPAY ==
--- NOTE | 2024-12-26 12:14 | DI.US.S_ITS ---
PROCEDURE: US PERIPH VENOUS LOW EXTREM LT INDICATIONS: SWELLING TECHNIQUE: Real-time imaging, as well as color and pulse Doppler interrogation, were performed of the lower extremity deep veins from the inguinal ligament to the popliteal fossa, with documentation of the visualized calf veins. COMPARISON: None. FINDINGS: The common femoral, femoral, popliteal, and the visualized calf veins are normally compressible, and free of intraluminal thrombus. Color and pulse Doppler demonstrate normal phasic intraluminal flow. There is normal augmentation response to distal compression maneuver. Mildly prominent lymph nodes are seen at the left groin area, the largest measuring up to 2.2 cm. IMPRESSION: No DVT found. Relatively prominent left groin lymph nodes, measuring up to 2.2 cm. Dictated by: Ky Carbajal M.D. on 12/26/2024 at 13:24 Approved by: Ky Carbajal M.D. on 12/26/2024 at 13:25
== END ==
LOC: US 12:13
PROVIDERS: Family Provider Family Medicine; PCP Physician Assistant; Referring Provider Nurse Practitioner Family; Visit Provider Nurse Practitioner Family
DX: M79.89 Other specified soft tissue disorders (principal)
CPT/HCPCS: 93971

== ENCOUNTER → 2025-01-06 11:18 | Outpatient (CLI) | payer MEDICARE, OTHER, SELFPAY ==
[2025-01-06 19:30] LABS: Add Manual Diff / Slide Review NO; Basophils Absolute Auto 0 /uL (0-100); Basophils Percent Auto 0.5 % (0-2); Eosinophils Absolute Auto 200 /uL (0-450); Eosinophils Percent Auto 3.5 % (2-4); Hematocrit 35.9 % (41-53); Lymphocytes Absolute Auto 1800 /uL (1100-4500); Lymphocytes Percent Auto 24.9 % (25-40); Mean Corpuscular HGB Conc 33.5 % (30-36); Mean Corpuscular Hemoglobin 31.4 PG (26-34); Mean Corpuscular Volume 93.9 fL (80-100); Monocytes Absolute Auto 500 /uL (0-900); Monocytes Percent Auto 7.2 % (3-14); Neutrophils Absolute Auto 4500 /uL (1500-7000); Neutrophils Percent Auto 63.9 % (50-75); Platelet Count 172 X10^3/uL (150-400); Red Blood Cell Count 3.82 X10^6/uL (4.5-5.9); Red Cell Distribution Width 14.1 % (11.6-14.8); White Blood Cell Count 7.1 X10^3/uL (4.5-11.0)
[2025-01-06 19:32] LABS: Alanine Aminotransferase 29 IU/L (<50); Albumin 4.6 g/dL (3.5-5.0); Albumin Globulin Ratio 1.6 (1.0-2.8); Alkaline Phosphatase 105 U/L (38-126); Aspartate Aminotransferase 32 IU/L (17-59); BUN Creatinine Ratio 31.9 (6-22); Blood Urea Nitrogen 44 mg/dL (9-20); Calcium 9.9 mg/dL (8.4-10.2); Carbon Dioxide 20 mmol/L (22-32); Chloride 103 mmol/L (98-107); Estimated Glomerular Filt Rate 51 mL/min (>60); Globulin 2.9 g/dL (1.7-4.1); Glucose 231 mg/dL (80-110); HEMOLYSIS 18 (0-50); Potassium 4.9 mmol/L (3.4-5.1); Sodium 139 mmol/L (137-145); Total Protein 7.5 g/dL (6.3-8.2)
[2025-01-06 20:03] LABS: Prostate Specific Antigen Scrn 1.63 ng/mL (0.1-4.0)
== END ==
PROVIDERS: Family Provider Family Medicine; PCP Physician Assistant; Visit Provider Physician Assistant
DX: Z12.5 Encounter for screening for malignant neoplasm of prostate (principal); D64.9 Anemia, unspecified; E11.49 Type 2 diabetes mellitus with other diabetic neurological complication; Z79.899 Other long term (current) drug therapy
CPT/HCPCS: 80053; 85025; G0103

== ENCOUNTER → 2025-01-21 12:44 | Outpatient (CLI) | payer MEDICARE, OTHER, SELFPAY ==
--- NOTE | 2025-01-21 12:47 | DI.US.S_ITS ---
PROCEDURE: US PELVIC LIMITED INDICATIONS: Evaluate enlarged left inguinal lymph nodes TECHNIQUE: Real-time transabdominal scanning was performed of the inguinal region, with image documentation. COMPARISON: None. FINDINGS: Focused ultrasound examination of left inguinal region shows no inguinal hernia. Lobulated and heterogeneous appearing lymph nodes are noted in left inguinal region medial to the left proximal superficial femoral vessels and measures 1.6 x 1.0 x 1.5 cm and 2.7 x 0.5 x 1.3 cm in size. IMPRESSION: Mildly enlarged left inguinal lymph nodes as described above and may be reactive in nature. Clinical and sonographic follow-up is recommended. We strive to produce accurate, complete, and clear reports of imaging services. To assist us in improving patient care, this report was composed using standard report templates and voice recognition software. Therefore, it may contain abnormal punctuation, insertions and/or omissions. Occasional wrong-word or sound-alike substitutions may occur. Though we review the report and make efforts to correct it, we do recommend that the report be read carefully in proper context to recognize any text inaccuracies. Dictated by: Agustin Peng M.D. on 01/21/2025 at 16:53 Approved by: Agustin Peng M.D. on 01/21/2025 at 16:54
== END ==
PROVIDERS: Family Provider Family Medicine; PCP Physician Assistant; Referring Provider Physician Assistant; Visit Provider Physician Assistant
DX: R59.0 Localized enlarged lymph nodes (principal)
CPT/HCPCS: 76857

== ENCOUNTER → 2025-03-10 14:34 | Outpatient (CLI) | payer MEDICARE, OTHER, SELFPAY ==
[2025-03-10 19:03] LABS: Hematocrit 34.5 % (41-53); Hemoglobin 11.5 g/dL (13.5-17.5)
[2025-03-10 19:15] LABS: BUN Creatinine Ratio 26.2 (6-22); Blood Urea Nitrogen 39 mg/dL (9-20); Calcium 9.2 mg/dL (8.4-10.2); Carbon Dioxide 21 mmol/L (22-32); Chloride 105 mmol/L (98-107); Estimated Glomerular Filt Rate 47 mL/min (>60); Glucose 176 mg/dL (70-99); HEMOLYSIS < 15 (0-50); Potassium 4.9 mmol/L (3.4-5.1); Sodium 139 mmol/L (137-145)
[2025-03-12 07:09] LABS: Parathyroid Hormone Int 47 pg/mL (15-65)
== END ==
PROVIDERS: Family Provider Family Medicine; PCP Physician Assistant; Visit Provider Student in an Organized Health Care Education/Training Program
DX: N05.9 Unspecified nephritic syndrome with unspecified morphologic changes (principal); D70.9 Neutropenia, unspecified; D63.1 Anemia in chronic kidney disease; N25.81 Secondary hyperparathyroidism of renal origin; R80.9 Proteinuria, unspecified
CPT/HCPCS: 80048; 83970; 85014; 85018

== ENCOUNTER → 2025-03-11 08:42 | Outpatient (CLI) | payer MEDICARE, OTHER, SELFPAY ==
[2025-03-11 10:42] LABS: Creatinine Urine Random 104.79 mg/dL; Protein (Total) Urine Random 71 mg/dL (0-12); Protein Creatinine Ratio Urine 0.67 GRAM/24H
== END ==
PROVIDERS: Family Provider Family Medicine; PCP Physician Assistant; Referring Provider Student in an Organized Health Care Education/Training Program; Visit Provider Student in an Organized Health Care Education/Training Program
DX: N05.9 Unspecified nephritic syndrome with unspecified morphologic changes (principal); D70.9 Neutropenia, unspecified; D63.1 Anemia in chronic kidney disease; R80.9 Proteinuria, unspecified; N25.81 Secondary hyperparathyroidism of renal origin
CPT/HCPCS: 82570; 84156

== ENCOUNTER → 2025-04-11 11:03 | Outpatient (CLI) | payer MEDICARE, OTHER, SELFPAY ==
--- NOTE | 2025-04-11 11:05 | DI.MRI.S_ITS ---
PROCEDURE: MR LUMBAR SPINE WO CON INDICATIONS: Radiculopathy TECHNIQUE: Noncontrast sagittal T1 spin echo and T2 fast echo, sagittal STIR, and T2 fast spin echo through the lumbar spine. In cases with scoliosis, additional coronal T2 fast spin echo may be performed. COMPARISON: [facility], MR, MR LUMBAR SPINE WO CON, 03/12/2024, 17:07. FINDINGS: Image quality: Excellent. Alignment and Curvature: There is normal bony alignment. Bone Marrow: Multilevel degenerative endplate changes. Marrow is of normal overall signal. No acute vertebral body compression fractures. Spinal Cord: Conus medullaris terminates at the L1-L2 level. Visualized cord demonstrates normal signal and size. Paraspinous Soft Tissues: No paravertebral masses. T12-L1: Normal appearance. L1-L2: Disc desiccation. Minimal disc bulge. Facet arthropathy. No central canal or neural foraminal stenosis. L2-L3: Disc desiccation and severe height loss. Posterior disc bulge. Facet arthropathy. Epidural lipomatosis. Moderate central canal stenosis. [id number] right and mild left neural foraminal stenosis. L3-L4: Disc desiccation and moderate height loss. Diffuse disc bulge. Facet arthropathy. Epidural lipomatosis. Moderate to severe central canal stenosis is stable. Moderate to severe left and moderate right neural foraminal stenosis. L4-L5: Disc desiccation and diffuse disc bulge. Facet arthropathy and thickening of ligamentum flavum. Epidural lipomatosis. Moderate to severe central canal stenosis is mildly progressed. Mild left and no right neural foraminal stenosis. L5-S1: Disc desiccation and moderate height loss. Diffuse disc bulge and small central disc protrusion. Facet arthropathy. No significant central canal stenosis. Moderate right and cfim-my-yoialabs left neural foraminal stenosis is stable. IMPRESSION: 1. Multilevel degenerative changes of the lumbar spine as described above with mild progression at L4-5. 2. Moderate to severe central canal stenosis at L3-L4 and L4-5. 3. Moderate to severe neural foraminal stenosis on the left at L3-L4. Moderate neural foraminal stenosis on the right at L3-L4 and L5-S1. Dictated by: Sebas Goncalves M.D. on 04/13/2025 at 9:37 Approved by: Sebas Goncalves M.D. on 04/13/2025 at 9:50
== END ==
LOC: MRI 11:04
PROVIDERS: Family Provider Family Medicine; PCP Physician Assistant; Referring Provider Neurological Surgery; Visit Provider Neurological Surgery
DX: M51.17 Intervertebral disc disorders with radiculopathy, lumbosacral region (principal); M53.88 Other specified dorsopathies, sacral and sacrococcygeal region; M47.26 Other spondylosis with radiculopathy, lumbar region; M47.27 Other spondylosis with radiculopathy, lumbosacral region; M48.061 Spinal stenosis, lumbar region without neurogenic claudication; M48.07 Spinal stenosis, lumbosacral region
CPT/HCPCS: 72148

== ENCOUNTER → 2025-04-21 15:47 | Outpatient (CLI) | payer MEDICARE, OTHER, SELFPAY ==
--- NOTE | 2025-04-21 15:50 | DIAB.MNT ---
Initial Diabetes Medical Nutrition Therapy Assessment Name: Ollie Thomas (Florin) Date: 04/21/25 Time: 4-445p Dx: Type II Diabetes with CKD Provider: Sharita Preferred Learning Style: Tricia Catherine presents for initial Dm visit virtually using [facility] Portal. Endorses PMH of Dm x 16 years. Has previously had DM education. Recently started Jardiance, late February . Rx from Nephrology. Follow-up in one month. Recent start of CGM. Today he is wanting more info on diet. Specifically concerned about some lows. Often does not eat between 10a-6p Generally does not like water. States merchandise team manager has told him he is dehydrated. Diet Recall: wake 730-8a 945a: croissant x 2 OR croissant and bagel OR fruit turnover and croissant (usually two options, sometimes only one) OR bagel with cream cheese and eggs, fruit juice 12oz iced mocha 1p: nut bar or nothing 730p: ham, brie sandwich, salad, 3oz potato salad OR 1c pasta or rice dish with protein, veggies iced tea mocha water 16oz 12oz sparkling water or diet pepsi estimates liquids 1quart per day or more (32oz) Anthropometrics: Ht: 68 Wt: 205# Physical Activity: 2 days per week gym Self-Monitoring Blood Glucose: Reports he cannot bring himself to fingerstick. Using Freestyle Yarely CGM via irvin. Reports two low BG warnings, just under 70mg/dl, not symptomatic. Possibly some fatigue with lows per report. TIR meets ADA goals. May benefit from reduced insulin if makes diet changes. Often having elevation after breakfast due to excessive CHO intake, and then brief low after fasting for extended time between meals. 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 Contrast given with a GFR of 44 while taking metformin. Pt did not receive my message about stopping metformin and having GFR repeated prior to the CT scan. Notations were made also on the CT scan request/order change. Post CT scan his GFR is now 58 and he has seen his merchandise team manager. I am placing the Dx of contrast dye induced nephropathy on the chart in order to make providers stop and consider other options prior to giving iodine contrast to this Pt. Degenerative joint disease of knee Herniated nucleus pulposus, L5-S1 Lumbar radiculopathy, right Myocardial infarction Nonrheumatic aortic (valve) stenosis Other symptoms and signs involving the musculoskeletal system Nutrition Rx: Carbohydrates: 30-60g at meals ; 15-30g at snacks Fluids: 44-64oz per day Nutrition Diagnosis: - Nutrition and food related knowledge deficit Intervention: This participant was very receptive. Provided appropriate educational handouts. Discussed the following topics: Completed intake assessment. Discussed barriers to care. Impact of macronutrients on blood sugar, meal timing, pairing macronutrients and spreading out carbohydrates for better blood glucose management Recommended servings for carbohydrates at meals and snacks Brainstormed appropriate meal/snack ideas based on food preferences CGm vs finger sticks CGM trends and goals Reducing lows and elevations strategies Hydration benefits, especially on SGLT2i Created SMART goals for patient self-care and success. Goals: Try spreading out morning carbs, one croissant or bagel at 10a and one at 1-2p- new Sparkling jacome 2 per day- new Aim for 44oz of liquids per day- new Follow-up: SAMMY RAMOS follow-up in 2-3 weeks Rosibel Garcia RDN, RACHEL Certified Diabetes Care and Aircraft Parts Assembler P: [phone] Thank you for this referral
== END ==
LOC: DIET 15:49
PROVIDERS: Family Provider Family Medicine; PCP Physician Assistant; Referring Provider Physician Assistant
DX: E11.22 Type 2 diabetes mellitus with diabetic chronic kidney disease (principal); Z71.3 Dietary counseling and surveillance; Z79.84 Long term (current) use of oral hypoglycemic drugs; Z79.4 Long term (current) use of insulin; N18.9 Chronic kidney disease, unspecified
CPT/HCPCS: 97802

== ENCOUNTER → 2025-04-30 14:06 | Outpatient (CLI) | payer MEDICARE, OTHER, SELFPAY ==
[2025-04-30 19:38] LABS: Hematocrit 34.8 % (41-53); Hemoglobin 12.0 g/dL (13.5-17.5)
[2025-04-30 19:47] LABS: Blood Urea Nitrogen 33 mg/dL (9-20); Calcium 9.4 mg/dL (8.4-10.2); Carbon Dioxide 23 mmol/L (22-32); Chloride 106 mmol/L (98-107); Estimated Glomerular Filt Rate 52 mL/min (>60); Glucose 200 mg/dL (70-99); HEMOLYSIS 23 (0-50); Potassium 5.2 mmol/L (3.4-5.1); Sodium 140 mmol/L (137-145)
[2025-04-30 20:14] LABS: Protein (Total) Urine Random 34 mg/dL (0-12); Protein Creatinine Ratio Urine 0.56 GRAM/24H
== END ==
PROVIDERS: Family Provider Family Medicine; PCP Physician Assistant; Visit Provider Student in an Organized Health Care Education/Training Program
DX: N05.9 Unspecified nephritic syndrome with unspecified morphologic changes (principal); D70.9 Neutropenia, unspecified; D63.1 Anemia in chronic kidney disease; N25.81 Secondary hyperparathyroidism of renal origin; R80.9 Proteinuria, unspecified
CPT/HCPCS: 36415; 80048; 82570; 83970; 84156; 85014; 85018

== ENCOUNTER → 2025-05-06 11:23 | Outpatient (CLI) | payer MEDICARE, OTHER, SELFPAY ==
[2025-05-06 12:10] LABS: Blood Urea Nitrogen 34 mg/dL (9-20); Calcium 9.0 mg/dL (8.4-10.2); Carbon Dioxide 20 mmol/L (22-32); Chloride 108 mmol/L (98-107); Estimated Glomerular Filt Rate 47 mL/min (>60); Glucose 80 mg/dL (70-99); HEMOLYSIS < 15 (0-50); Potassium 4.6 mmol/L (3.4-5.1); Sodium 139 mmol/L (137-145)
== END ==
PROVIDERS: Family Provider Family Medicine; PCP Physician Assistant; Referring Provider Student in an Organized Health Care Education/Training Program; Visit Provider Student in an Organized Health Care Education/Training Program
DX: N05.9 Unspecified nephritic syndrome with unspecified morphologic changes (principal)
CPT/HCPCS: 36415; 80048

== ENCOUNTER → 2025-05-19 10:33 | Outpatient (CLI) | payer MEDICARE, OTHER, SELFPAY ==
[2025-05-19 19:58] LABS: Alanine Aminotransferase 37 IU/L (<50); Albumin 4.3 g/dL (3.5-5.0); Albumin Globulin Ratio 1.4 (1.0-2.8); Alkaline Phosphatase 97 U/L (38-126); Blood Urea Nitrogen 31 mg/dL (9-20); Calcium 9.0 mg/dL (8.4-10.2); Carbon Dioxide 23 mmol/L (22-32); Chloride 106 mmol/L (98-107); Cholesterol 112 mg/dL (140-199); Estimated Glomerular Filt Rate 53 mL/min (>60); Globulin 3.0 g/dL (1.7-4.1); Glucose 84 mg/dL (70-99); HDL Cholesterol 43 mg/dL (40-60); HEMOLYSIS 22 (0-50); Potassium 5.0 mmol/L (3.4-5.1); Sodium 141 mmol/L (137-145); Total Protein 7.3 g/dL (6.3-8.2); Triglycerides 150 mg/dL (35-150)
[2025-05-19 19:59] LABS: Hemoglobin A1C% w Est Avg Glu 6.7 % (4.0-6.0)
[2025-05-19 20:17] LABS: Microalbumi Creatinin Ratio Ur 235.0 ug/mg CR (<30)
== END ==
PROVIDERS: Family Provider Family Medicine; PCP Physician Assistant; Visit Provider Physician Assistant
DX: E11.22 Type 2 diabetes mellitus with diabetic chronic kidney disease (principal); E78.00 Pure hypercholesterolemia, unspecified; N18.30 Chronic kidney disease, stage 3 unspecified
CPT/HCPCS: 80053; 80061; 82043; 82570; 83036

== ENCOUNTER → 2025-05-20 11:02 | Outpatient (CLI) | payer MEDICARE, OTHER, SELFPAY ==
--- NOTE | 2025-05-20 11:06 | DIAB.MNTFU ---
Follow-up Diabetes Medical Nutrition Therapy Assessment Name: Ollie Thomas (Florin) Date: 05/20/25 Time: 11a Dx: Type II Diabetes with CKD Provider: Sharita Preferred Learning Style: Tricia Catherine presents for initial Dm visit virtually using [facility] Portal. Endorses PMH of Dm x 16 years. Has previously had DM education. Endorses some lows in the 53-68mg/dl range. Unsymptomatic with CGM lows. Likely needs to reduce basal insulin. Has questions about why he may have a low when he already started eating. Has questions about tx lows and how quickly CHO are absorbed. Nephrology rx'd Jardiance last February. Often does not eat between 10a-6p Generally does not like water. States night club manager has told him he is dehydrated. Reduced CHO intake as discussed last visit. Reducing potassium foods based on elevated K labs, which improved with changes. Improved GFR since last visit. Fluids: iced tea mocha water 24oz sparkling water or diet pepsi estimates liquids 1quart per day or more (48oz) Anthropometrics: Ht: 68 Wt: 205# Physical Activity: 2 days per week gym Self-Monitoring Blood Glucose: Reports he cannot bring himself to fingerstick. Using Freestyle Yarely CGM via irvin. Meeting time in range goals however increased low BG. FBG ranging from 80-100mg/dl, so room to reduce basal insulin. Also, more lows the last two weeks ranging from 58-63mg/dl. RD messaged PCP to confirm rec of reduction in basal insulin. TIR: 1% very high 11% high 86% in range 2% low 0%very low avmg/dl GMI: 6.3% variability: 32.1% Last TIR: 2% very high 18% high 80% in range 0% low or very low avmg/dl GMI: 6.8% variability: 28.4% Diabetes Medications: 10mg Jardiance 34u Glargine 1000mg Metformin BID Pertinent Labs: HgA1c: 7.2% 03/2025 6.7% 04/2025 Past Medical History: (Last Updated 11/28/24 @ 12:38 by Ollie Wright MD) Acute embolism and thrombosis of unspecified deep veins of unspecified proximal lower extremity AF (atrial fibrillation) Allergies (~1968) Aortic stenosis (~2016) Aortic valve disorder Arthralgia of temporomandibular joint, unspecified side Arthritis of knee, left 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 Contrast given with a GFR of 44 while taking metformin. Pt did not receive my message about stopping metformin and having GFR repeated prior to the CT scan. Notations were made also on the CT scan request/order change. Post CT scan his GFR is now 58 and he has seen his night club manager. I am placing the Dx of contrast dye induced nephropathy on the chart in order to make providers stop and consider other options prior to giving iodine contrast to this Pt.Degenerative joint disease of knee Herniated nucleus pulposus, L5-S1 Lumbar radiculopathy, right Myocardial infarction Nonrheumatic aortic (valve) stenosis Other symptoms and signs involving the musculoskeletal system Nutrition Rx: Carbohydrates: 30-60g at meals ; 15-30g at snacksFluids: 44-64oz per day Nutrition Diagnosis: - Nutrition and food related knowledge deficit Intervention: This participant was very receptive. Provided appropriate educational handouts. Discussed the following topics: Completed intake assessment. Discussed barriers to care. Hydration Diet changes Insulin recs BG goals Absorption time of CHO and delay in CGM Rule 15 tx for lows Created SMART goals for patient self-care and success. Goals: Try spreading out morning carbs, one croissant or bagel at 10a and one at 1-2p- met Sparkling jacome 2 per day- met Aim for 44oz of liquids per day- met Consider reducing insulin to 28-30u to reduce lows- new Continue diet changes and fluids- new Follow-up: SAMMY RAMOS follow-up in 4-5 weeks or sooner prn. RD messaged PCP. Would rec 15-20% reduction in basal insulin to reduce low events. Rosibel Garcia, SAMMY, RACHEL Certified Diabetes Care and Branch Manager P: [phone] Thank you for this referral
== END ==
LOC: DIET 11:03
PROVIDERS: Family Provider Family Medicine; PCP Physician Assistant; Referring Provider Physician Assistant
DX: E11.22 Type 2 diabetes mellitus with diabetic chronic kidney disease (principal); N18.9 Chronic kidney disease, unspecified; Z71.3 Dietary counseling and surveillance; Z79.4 Long term (current) use of insulin; Z79.84 Long term (current) use of oral hypoglycemic drugs
CPT/HCPCS: 97803

== ENCOUNTER → 2025-06-26 14:14 | Outpatient (CLI) | payer MEDICARE, OTHER, SELFPAY ==
--- NOTE | 2025-06-26 15:14 | DIAB.MNTFU ---
Follow-up Diabetes Medical Nutrition Therapy Assessment Name: Ollie Thomas (Florin) Date: 06/26/25 Time: 205-245p Dx: Type II Diabetes with CKD Provider: Sharita Florin presents for Dm visit virtually using Portal. Reduced basal insulin to 28u which has helps reduce lows, though often still having some BG of 65-68mg/dl between meals. UTD on eyes Checks feet and PCP completed filament test States he does not have a PCP f/u. Does see nephrology and pain management. Reports he thinks he is not eating enough fruit. Not eating regularly. is having some health issues, she does not cook everyday. States he may eat a sandwich out, but avoiding large kcal meals eating out. Trying to follow a low potassium diet per postdoctoral research fellow. Trying to choose the lower potassium fruits at dinner 4-5x per week. Endorses lumbar injections coming up this month. States he is unclear if this is a steroid injection, though based on pain provider notes it seems to be. Diet Recall: wake 730-8a 945a: croissant or bagel or fruit turnover and 12oz iced mocha 2p: another pastry 6-7p: chicken soup OR sandwich OR salad with chicken and fruit 2L fluids (water, sparkling water, ICE, diet soda, mocha) Anthropometrics: Ht: 68 Wt: 205# Physical Activity: 2 days per week gym Self-Monitoring Blood Glucose: Reports he cannot bring himself to fingerstick. Using Freestyle Yarely CGM via irvin. Meeting time in range goals with reduced elevations and reduced lows since reduction of basal insulin. TIR: 0% very high 9% high 90% in range 1% low 0%very low avmg/dl GMI: 6.3% variability: 27.7% Last TIR: 1% very high 11% high 86% in range 2% low 0%very low avmg/dl GMI: 6.3% variability: 32.1% Diabetes Medications: 10mg Jardiance 34u Glargine----- 28u 1000mg Metformin BID Pertinent Labs: HgA1c: 7.2% 03/2025 6.7% 04/2025 Past Medical History: (Last Updated 11/28/24 @ 12:38 by Ollie Wright MD) Acute embolism and thrombosis of unspecified deep veins of unspecified proximal lower extremity AF (atrial fibrillation) Allergies (~1967) Aortic stenosis (~2015) Aortic valve disorder Arthralgia of temporomandibular joint, unspecified side Arthritis of knee, 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 Contrast given with a GFR of 44 while taking metformin. Pt did not receive my message about stopping metformin and having GFR repeated prior to the CT scan. Notations were made also on the CT scan request/order change. Post CT scan his GFR is now 58 and he has seen his postdoctoral research fellow. I am placing the Dx of contrast dye induced nephropathy on the chart in order to make providers stop and consider other options prior to giving iodine contrast to this Pt.Degenerative joint disease of knee Herniated nucleus pulposus, L5-S1 Lumbar radiculopathy, right Myocardial infarction Nonrheumatic aortic (valve) stenosis Other symptoms and signs involving the musculoskeletal system Nutrition Rx: Carbohydrates: 30-60g at meals ; 15-30g at snacksFluids: 44-64oz per day Nutrition Diagnosis: - Nutrition and food related knowledge deficit Intervention: This participant was very receptive. Provided appropriate educational handouts. Discussed the following topics: Review of fruit recs and potassium Encouraged fluids and hydration Discussed potential for steroid injections to impact BG and having a plan with provider in place Goals: Consider reducing insulin to 28-30u to reduce lows- met Continue diet changes and fluids- met Aim for low potassium fruit once per day- new Stay hydrated- new Message PCP about when next visit and about if steroid injection Follow-up: SAMMY RAMOS follow-up prn per pt christoph Garcia RDN, RACHEL Certified Diabetes Care and [employer] P: [phone] Thank you for this referral
== END ==
LOC: DIET 14:15
PROVIDERS: Family Provider Family Medicine; PCP Physician Assistant; Referring Provider Physician Assistant
DX: E11.22 Type 2 diabetes mellitus with diabetic chronic kidney disease (principal); Z71.3 Dietary counseling and surveillance; N18.9 Chronic kidney disease, unspecified; Z79.84 Long term (current) use of oral hypoglycemic drugs; Z79.4 Long term (current) use of insulin
CPT/HCPCS: 97803

== ENCOUNTER → 2025-07-06 13:11 | Outpatient (CLI) | payer MEDICARE, OTHER, SELFPAY ==
[2025-07-06 19:31] LABS: Hemoglobin A1C% w Est Avg Glu 6.3 % (4.0-6.0)
== END ==
PROVIDERS: Family Provider Family Medicine; PCP Physician Assistant; Visit Provider Physician Assistant
DX: E11.9 Type 2 diabetes mellitus without complications (principal)
CPT/HCPCS: 83036

== ENCOUNTER 2025-07-09 12:39 | Outpatient (CLI) | payer MEDICARE, OTHER, SELFPAY ==
[2025-07-09] VITALS (7 sets, daily range): BP systolic 116–164; BP diastolic 57–70; PULSE 60–76; RESP 14–20; O2SAT 97–100
[2025-07-09] MEDS: MIDAZOLAM 2 MG/2 ML VIAL IV (13:40)
[2025-07-09] MEDS: BETAMETHASONE 30 MG/5 ML MDV 12 MG INJ (13:46)
--- NOTE | 2025-07-09 14:00 | PM.PROC.IR.1 ---
Date/Time/Diagnoses Date of procedure: 07/09/25 Time of procedure: 14:00 Pre-procedure diagnosis: 1. HNP WITH RADICULAR FEATURES, 2. MULTILEVEL CENTRAL STENOSIS, Post-procedure diagnosis: same Procedure Notes Procedure: 1. FLUOROSCOPICALLY GUIDED CONTRAST CONTROLLED INTERLAMINAR EPIDURAL STEROID INJECTION - L2/3 Indications: Ollie is referred by PAC Sheriff for treatment of Bilateral Foraminal Stenosis L>R LE symptoms. Physician: Ollie Minaya Total Fluoroscopy time (seconds): 8 Total sedation minutes: 12 Complications: none Procedure in detail & Post-procedure care: FINDINGS Multilevel Central Spinal Stenosis with Nerve Root Compression DESCRIPTION OF PROCEDURE Fluoroscopically guided, contrast-controlled L2/3 translaminar epidural steroid injection. Following review of allergy and review of potential side effects and complications, including, but not necessarily limited to, infection, allergic reaction, local tissue breakdown, temporary as well as permanent nerve injury, paralysis, stroke and possible , the patient indicated that the patient understood and agreed to proceed. An informed consent document was signed by the patient, witnessed by a nurse, and placed in the patient's chart. Additionally, other treatment options including modalities, medications, and physical therapy were reviewed with the patient. After review of previous anaesthesic history and IV conscious sedation the patient was deemed safe to proceed with today?s procedure with IV conscious sedation as ASA class II designation. Safety time-out was performed to confirm patient ID, procedure to be performed and site of procedure. IV sedation was accomplished with a combination of 2mg Versed administered by the RN after DO order, titrated to patient comfort during the course of the procedure while the patient remained responsive to all verbal commands. In the prone position, following sterile prep and drape of the lumbar region,the L2/3 translaminar space was identified fluoroscopically. The skin was anesthetized via a 25-gauge, 1.5-inch needle with 1% lidocaine solution. At this point, a 22-gauge short bevel spinal needle was atraumatically introduced and advanced under fluoroscopic guidance into the region of the L2/3 translaminar space. Depth was confirmed on lateral view. Radiological data, including multiple fluoroscopic views of the lumbar spine, reveal a spinal needle at the L2/3 translaminar space. Lateral views then show placement of the needle in the epidural space. Subsequent views show contrast material flowing superiorly and inferiorly in the epidural space. No vascular or intrathecal uptake is observed. At this point, using loss of resistance technique with saline and air, the epidural space was entered. This was confirmed following negative aspiration with injection of approximately 1.5 cc of Isovue 200, showing excellent epidural flow without vascular or intrathecal uptake. At this point, 1cc of 0.25% marcaine solution combined with 3cc or 10mg of dexamethasone and 12mg of betamethasone was injected without incident. The patient tolerated the procedure well without signs or symptoms of complications prior to transfer to the recovery area continued monitoring without incident. The patient was then transferred to the recovery area where they were observed for an appropriate period of time after the injection. The patient reported a VAS score of 6 prior to the procedure and a post-procedure VAS of 0. POST OP INSTRUCTIONS The patient was provided a Pain Log to continue to record their response to the target-specific procedure prior to follow-up visit with their referring physician. Additionally, specific post-injection care instructions and a contact number to our office were provided if concerns arise regarding possible complications associated with the procedure are suspected.
== END 2025-07-09 14:10 | disposition home or self-care (01) ==
LOC: RAD 12:40
PROVIDERS: Family Provider Family Medicine; PCP Physician Assistant; Referring Provider Physician Assistant; Visit Provider Physical Medicine & Rehabilitation
DX: M51.16 Intervertebral disc disorders with radiculopathy, lumbar region (principal); M48.061 Spinal stenosis, lumbar region without neurogenic claudication
CPT/HCPCS: 62323; 99152; J0702; J1100; J2250